=== PATIENT | female | born 1940 | race Caucasian/White ===

== ENCOUNTER 2019-07-29 16:59 | Emergency (ER) | payer OTHER, BC ==
[2019-07-29] MEDS ORDERED: HYDROCODONE/APAP 5/325 MG TAB ONE (17:18)
--- NOTE | 2019-07-29 17:42 | RAD REPORT ---
EXAM DESCRIPTION: CT - CTHCSPWOC - 07/29/2019 5:32 pm CLINICAL HISTORY: Fall, head and neck injury COMPARISON: CT head and cervical May 2015 TECHNIQUE: Axial 5 mm thick images of the head were obtained. Axial 2 mm thick images of the cervic al spine were obtained with sagittal and coronal reconstruction images generated and reviewed. All CT scans are performed using dose optimization technique as appropriate and may include automated exposure control or mA/KV adjustment according to patient size. FINDINGS: No intracranial hemorrhage, mass, edema or acute intracranial finding. No suspicion for acute infarct ion. No acute cortical based infarction. Prominent atrophy and chronic ischemic changes are present. Ventricles are in proportion to volume loss. Dense arterial tree calcifications are present. Mastoid air cells and paranasal sinuses are clear. No globe or orbit abnormality seen. Cervical body height and alignment are normal. C4-5 and C5-6 disc space narrowing present with endpla te spurring. Bony foraminal encroachment is present both of these levels. No fracture or acute bony a bnormality. No paraspinal mass or hematoma. IMPRESSION: Atrophy and chronic ischemic changes are present but no acute intracranial finding. No s ignificant change from comparison. Cervical spine degenerative change without fracture or acute finding.
--- NOTE | 2019-07-29 19:27 | EDPHYS ---
Physician Documentation [facility] Name: Yolande Hurtado Age: 79 yrs Sex: Female : 1940 Arrival Date: 07/29/2019 Time: 17:01 Bed 5 Private MD: ED Physician Jamel Montiel HPI: 07/29 17:16 This 79 yrs old Female presents to ER via EMS with complaints of Fall Injury. pm1 17:16 Details of fall: The patient fell from an upright position, while standing. Onset: The pm1 symptoms/episode began/occurred just prior to arrival. Associated injuries: The patient sustained injury to the head, contusion, right ankle. Severity of symptoms: in the emergency department the symptoms. The patient has not experienced similar symptoms in the past. The patient has not recently seen a physician. Patient was standing outside and tripped from behind by two dogs. Fell backwards and twisted her right ankle, hit the back of head and scrapped her left ankle. No LOC, vomiting, or neck pain. Historical: - Allergies: 17:05 Codeine; tw2 - Home Meds: 17:05 atorvastatin Oral once daily [Active]; sulfamethoxazole-trimethoprim Oral twice a day tw2 [Active]; omeprazole 40 mg Oral cpDR once daily [Active]; losartan-hydrochlorothiazide Oral [Active]; levothyroxine 75 mcg tab 1 tab once daily [Active]; fluoxetine 40 mg Oral cap once daily [Active]; - PMHx: 17:05 Anxiety; Hypertension; Hypothyroidism; reflux; tw2 - PSHx: 17:05 Cholecystectomy; partial hysterectomy; back sx; tw2 - Immunization history:: Adult Immunizations. - Social history:: Smoking status: . - Ebola Screening: : Patient denies travel to an Ebola-affected area in the 21 days before illness onset. ROS: 17:16 Constitutional: Negative for fever, chills, and weight loss, Eyes: Negative for injury, pm1 pain, redness, and discharge, ENT: Negative for injury, pain, and discharge, Neck: Negative for injury, pain, and swelling, Cardiovascular: Negative for chest pain, palpitations, and edema, Respiratory: Negative for shortness of breath, cough, wheezing, and pleuritic chest pain, Abdomen/GI: Negative for abdominal pain, nausea, vomiting, diarrhea, and constipation, Back: Negative for injury and pain. 17:16 MS/extremity: Positive for pain, swelling, of the right ankle, Negative for decreased range of motion, deformity. 17:16 Skin: Positive for abrasion(s), of the anterior aspect of left ankle. 17:16 Neuro: Positive for headache, of the forehead, Negative for dizziness, numbness, pm1 tingling, weakness. Exam: 17:16 Constitutional: This is a well developed, well nourished patient who is awake, alert, pm1 and in no acute distress. Head/Face: Normocephalic, atraumatic. Eyes: Pupils equal round and reactive to light, extra-ocular motions intact. Lids and lashes normal. Conjunctiva and sclera are non-icteric and not injected. Cornea within normal limits. Periorbital areas with no swelling, redness, or edema. ENT: Nares patent. No nasal discharge, no septal abnormalities noted. Tympanic membranes are normal and external auditory canals are clear. Oropharynx with no redness, swelling, or masses, exudates, or evidence of obstruction, uvula midline. Mucous membranes moist. Neck: Trachea midline, no thyromegaly or masses palpated, and no cervical lymphadenopathy. Supple, full range of motion without nuchal rigidity, or vertebral point tenderness. No Meningismus. Chest/axilla: Normal chest wall appearance and motion. Nontender with no deformity. No lesions are appreciated. Cardiovascular: Regular rate and rhythm with a normal S1 and S2. No gallops, murmurs, or rubs. Normal PMI, no JVD. No pulse deficits. Respiratory: Lungs have equal breath sounds bilaterally, clear to auscultation and percussion. No rales, rhonchi or wheezes noted. No increased work of breathing, no retractions or nasal flaring. Abdomen/GI: Soft, non-tender, with normal bowel sounds. No distension or tympany. No guarding or rebound. No evidence of tenderness throughout. Back: No spinal tenderness. No costovertebral tenderness. Full range of motion. 17:16 Musculoskeletal/extremity: Extremities: grossly normal except: noted in the right ankle: swelling, tenderness, There is no evidence of decreased ROM, deformity. 17:16 Skin: Appearance: normal except for affected area, injury, abrasion(s), of the anterior aspect of left ankle. 17:16 Neuro: Orientation: is normal, Motor: is normal. Vital Signs: 17:05 BP 137 / 91; Pulse 77; Resp 17; Temp 97.9(TE); Pulse Ox 98% on R/A; Weight 83.91 kg (R);tw2 18:00 BP 131 / 62; Pulse 69; Resp 17; Pulse Ox 97% on R/A; tw2 18:55 BP 146 / 82; Pulse 78; Resp 17; Pulse Ox 97% on R/A; tw2 19:35 BP 147 / 77; Pulse 81; Resp 18 S; Temp 97.7(O); Pulse Ox 97% on R/A; cc3 [place] Coma Score: 17:03 Eye Response: spontaneous(4). Verbal Response: oriented(5). Motor Response: obeys ca1 commands(6). Total: 15. Trauma Score (Adult): 17:03 Eye Response: spontaneous(1); Verbal Response: oriented(1); Motor Response: obeys ca1 commands(2); Systolic BP: > 89 mm Hg(4); Respiratory Rate: 10 to 29 per min(4); Komal Score: 15; Trauma Score: 12 MDM: 17:09 Patient medically screened. pm1 19:14 Data reviewed: vital signs. Data interpreted: Pulse oximetry: on room air is 97 %. pm1 Interpretation: normal. Counseling: I had a detailed discussion with the patient and/or guardian regarding: the historical points, exam findings, and any diagnostic results supporting the discharge/admit diagnosis, radiology results, the need for outpatient follow up, for definitive care, a orthopedic surgeon, to return to the emergency department if symptoms worsen or persist or if there are any questions or concerns that arise at home. 19:14 ED course: Patient has a walker at home. pm1 07/29 17:16 Order name: CT Head C Spine; Complete Time: 17:56 pm1 07/29 17:16 Order name: Ankle Right 3 View XRAY; Complete Time: 01:42 pm1 07/29 17:16 Order name: Foot Right 3 View XRAY; Complete Time: 01:42 pm1 07/29 19:05 Order name: Walking boot; Complete Time: 19:36 pm1 Administered Medications: 17:18 Drug: [place] 5 mg-325 mg 1 tabs Route: PO; tw2 19:15 Follow up: Response: No adverse reaction; Pain is decreased; RASS: Alert and Calm (0) cc3 Disposition: 07/30 08:07 Co-signature as Attending Physician, Jamel Montiel MD. rn Disposition: 07/29/19 19:26 Discharged to Home. Impression: Avulsion fracture (chip fracture) of talus, Superficial injury of head, Abrasion, left ankle. - Condition is Stable. - Discharge Instructions: Head Injury, Adult. - Prescriptions for Ultracet 37.5- 325 mg Oral Tablet - take 1 tablet by ORAL route every 6 hours As needed - for up to 5 days; do not exceed 8 tablets per day.; 20 tablet. - Medication Reconciliation Form, Thank You Letter, Antibiotic Education, Prescription Opioid Use form. - Follow up: Emergency Department; When: As needed; Reason: Worsening of condition. Follow up: Private Physician; When: 2 - 3 days; Reason: Recheck today's complaints, Continuance of care, Re-evaluation by your physician. - Problem is new. - Symptoms have improved. Signatures: Dispatcher [employer] EDMS Jamel Montiel MD MD rn Marinas, Patrick, SALES CLERK FOOD SALES CLERK FOOD pm1 Janny Colon RN RN tw2 Patsy Atkinosn cc3 Corrections: (The following items were deleted from the chart) 07/29 19:26 19:26 07/29/2019 19:26 Discharged to Home. Impression: Avulsion fracture (chip pm1 fracture) of talus. Condition is Stable. Forms are Medication Reconciliation Form, Thank You Letter, Antibiotic Education, Prescription Opioid Use. Follow up: Emergency Department; When: As needed; Reason: Worsening of condition. Follow up: Private Physician; When: 2 - 3 days; Reason: Recheck today's complaints, Continuance of care, Re-evaluation by your physician. Problem is new. Symptoms have improved. pm1 19:53 19:26 07/29/2019 19:26 Discharged to Home. Impression: Avulsion fracture (chip cc3 fracture) of talus; Superficial injury of head; Abrasion, left ankle. Condition is Stable. Forms are Medication Reconciliation Form, Thank You Letter, Antibiotic Education, Prescription Opioid Use. Follow up: Emergency Department; When: As needed; Reason: Worsening of condition. Follow up: Private Physician; When: 2 - 3 days; Reason: Recheck today's complaints, Continuance of care, Re-evaluation by your physician. Problem is new. Symptoms have improved. pm1
--- NOTE | 2019-07-29 19:27 | ER ---
Nurse's Notes [facility] Name: Yolande Hurtado Age: 79 yrs Sex: Female : 1940 Arrival Date: 07/29/2019 Time: 17:01 Bed 5 Private MD: Diagnosis: Avulsion fracture (chip fracture) of talus;Superficial injury of head;Abrasion, left ankle Presentation: 07/29 17:01 Presenting complaint: EMS states: pt was outside noticed her neighbors dog out, but tw2 didn't see the other dog and it came up behind her and pushed her down, she fell and hit the back of her head on the concrete, no loc, abrasion noted, no laceration, pt is also c/o b/l ankle pain, more pain and swelling noted to the RIGHT ankle. vs stable, pt is not on blood thinners. Transition of care: patient was not received from another setting of care. Onset of symptoms was July 29, 2019. Risk Assessment: Do you want to hurt yourself or someone else? Patient reports no desire to harm self or others. Initial Sepsis Screen: Does the patient meet any 2 criteria? No. Patient's initial sepsis screen is negative. Does the patient have a suspected source of infection? No. Patient's initial sepsis screen is negative. Care prior to arrival: None. 17:01 Method Of Arrival: EMS: [facility] tw2 17:01 Acuity: SONJA 4 tw2 Triage Assessment: 17:03 General: Appears in no apparent distress. Behavior is cooperative, appropriate for age. tw2 Pain: Complains of pain in right and left ankle, and back of head. Historical: - Allergies: 17:05 Codeine; tw2 - Home Meds: 17:05 atorvastatin Oral once daily [Active]; sulfamethoxazole-trimethoprim Oral twice a day tw2 [Active]; omeprazole 40 mg Oral cpDR once daily [Active]; losartan-hydrochlorothiazide Oral [Active]; levothyroxine 75 mcg tab 1 tab once daily [Active]; fluoxetine 40 mg Oral cap once daily [Active]; - PMHx: 17:05 Anxiety; Hypertension; Hypothyroidism; reflux; tw2 - PSHx: 17:05 Cholecystectomy; partial hysterectomy; back sx; tw2 - Immunization history:: Adult Immunizations. - Social history:: Smoking status: . - Ebola Screening: : Patient denies travel to an Ebola-affected area in the 21 days before illness onset. Screenin:03 Abuse screen: Denies threats or abuse. Denies injuries from another. Nutritional ca1 screening: No deficits noted. Tuberculosis screening: No symptoms or risk factors identified. Fall Risk Fall in past 12 months (25 points). Primary Survey: 17:03 NO uncontrolled hemorrhage observed. A: The patient is alert. Airway: patent. ca1 Breathing/Chest: Respiratory pattern: regular, Respiratory effort: spontaneous, unlabored, Chest inspection: symmetrical rise and fall of the chest. Circulation: Skin color: pink, Skin temperature: warm, dry. Disability Alert. Exposure/Environment: All clothing and personal items were removed. Forensic evidence collection is not deemed to be indicated at this time. Items placed in patient belonging bag. There is no evidence of uncontrolled external bleeding. No obvious injuries are noted at this time. A warming method has been applied: A warm blanket has been provided to the patient. Assessment: 17:59 Reassessment: Patient appears in no apparent distress at this time. Patient and/or tw2 family updated on plan of care and expected duration. Pain level reassessed. Patient is alert, oriented x 3, equal unlabored respirations, skin warm/dry/pink. 18:55 Reassessment: Patient appears in no apparent distress at this time. Patient and/or tw2 family updated on plan of care and expected duration. Pain level reassessed. Patient is alert, oriented x 3, equal unlabored respirations, skin warm/dry/pink. 19:15 Reassessment: Patient appears in no apparent distress at this time. Patient and/or cc3 family updated on plan of care and expected duration. Pain level reassessed. Patient is alert, oriented x 3, equal unlabored respirations, skin warm/dry/pink. Received this female patient from morning shift NANCI Hernandez as a case of fall with right ankle injury. No IV cannula in situ. General: Appears in no apparent distress. comfortable, Behavior is calm, cooperative, appropriate for age. Pain: Denies pain. Neuro: Level of Consciousness is awake, alert, obeys commands, Oriented to person, place, time, situation, Appropriate for age. Cardiovascular: Denies chest pain, Heart tones S1 S2 present Capillary refill < 3 seconds in bilateral fingers Patient's skin is warm and dry. Respiratory: Airway is patent Respiratory effort is even, unlabored, Breath sounds are clear bilaterally. GI: Abdomen is round non-distended, Bowel sounds present X 4 quads. Abd is soft and non tender X 4 quads. : No signs and/or symptoms were reported regarding the genitourinary system. EENT: No signs and/or symptoms were reported regarding the EENT system. Derm: Skin is intact, is healthy with good turgor, Skin is pink, warm \T\ dry. normal. Musculoskeletal: Circulation, motion, and sensation intact. Range of motion: limited in right ankle. 19:50 Reassessment: Patient appears in no apparent distress at this time. Patient and/or cc3 family updated on plan of care and expected duration. Pain level reassessed. Patient is alert, oriented x 3, equal unlabored respirations, skin warm/dry/pink. SYSTEM MANAGER Toan discharged the patient home with prescription given. No IV cannula in situ. Patient left ER vitally stable by wheelchair escorted by civil engineering technicianserina Robertson and the patient's . No valuables left in the patient's room. Patient denies pain at this time. Patient states feeling better. Patient states symptoms have improved. Vital Signs: 17:05 BP 137 / 91; Pulse 77; Resp 17; Temp 97.9(TE); Pulse Ox 98% on R/A; Weight 83.91 kg (R);tw2 18:00 BP 131 / 62; Pulse 69; Resp 17; Pulse Ox 97% on R/A; tw2 18:55 BP 146 / 82; Pulse 78; Resp 17; Pulse Ox 97% on R/A; tw2 19:35 BP 147 / 77; Pulse 81; Resp 18 S; Temp 97.7(O); Pulse Ox 97% on R/A; cc3 Komal Coma Score: 17:03 Eye Response: spontaneous(4). Verbal Response: oriented(5). Motor Response: obeys ca1 commands(6). Total: 15. Trauma Score (Adult): 17:03 Eye Response: spontaneous(1); Verbal Response: oriented(1); Motor Response: obeys ca1 commands(2); Systolic BP: > 89 mm Hg(4); Respiratory Rate: 10 to 29 per min(4); Komal Score: 15; Trauma Score: 12 ED Course: 17:01 Patient arrived in ED. tw2 17:02 Doyle Joya NP is PHCP. pm1 17:02 Jamel Montiel MD is Attending Physician. pm1 17:03 Mary Mccray, NANCI is Primary Nurse. ca1 17:03 Triage completed. tw2 17:03 Arm band placed on. tw2 17:03 Patient has correct armband on for positive identification. Bed in low position. Call ca1 light in reach. Side rails up X2. Pulse ox on. NIBP on. Warm blanket given. Ice pack to injury. 17:03 Patient maintains SpO2 saturation greater than 95% on room air. ca1 17:33 CT Head C Spine In Process Unspecified. EDMS 18:34 Ankle Right 3 View XRAY In Process Unspecified. EDMS 18:34 Foot Right 3 View XRAY In Process Unspecified. EDMS 19:05 Report given to NANCI Yi. tw2 19:42 No provider procedures requiring assistance completed. Patient did not have IV access cc3 during this emergency room visit. Administered Medications: 17:18 Drug: [place] 5 mg-325 mg 1 tabs Route: PO; tw2 19:15 Follow up: Response: No adverse reaction; Pain is decreased; RASS: Alert and Calm (0) cc3 Outcome: 19:26 Discharge ordered by . pm1 19:42 Discharged to home via wheelchair, with family. cc3 19:42 Condition: stable 19:42 Discharge instructions given to patient, family, Instructed on discharge instructions, follow up and referral plans. medication usage, Demonstrated understanding of instructions, follow-up care, medications, Prescriptions given X 1. 19:53 Patient left the ED. cc3 Signatures: Dispatcher [employer] EDMS Doyle Joya, KRISTA SYSTEM MANAGER pm1 Janny Colon RN RN tw2 Patsy Atkinson cc3 Mary Mccray RN RN ca1
--- NOTE | 2019-07-29 19:51 | RAD REPORT ---
EXAM DESCRIPTION: RAD - Ankle Right 3 View - 07/29/2019 6:35 pm CLINICAL HISTORY: Fall, foot and ankle injury COMPARISON: None. FINDINGS: No fracture, dislocation or periosteal reaction. No joint effusion seen. No joint space na rrowing. Mild degenerative changes present at the ankle joint. Minimal soft tissue swelling. IMPRESSION: Minimal right ankle degenerative change with no acute finding.
--- NOTE | 2019-07-29 19:51 | RAD REPORT ---
EXAM DESCRIPTION: RAD - Foot Right 3 View - 07/29/2019 6:31 pm CLINICAL HISTORY: Fall, foot and ankle injury COMPARISON: None. FINDINGS: No fracture, dislocation or periosteal reaction. No acute or destructive bone process. Mil d IP joint degenerative changes are present. Mild degenerative change the first MTP joint. Minimal Ac hilles tendon calcifications present at the insertion. No air or foreign body in the soft tissues. IMPRESSION: Negative right foot examination for acute finding.
[2019-07-29 20:00] VITALS: O2SAT 97
[2019-07-29 20:03] VITALS: BP 147/77; TEMP 97.7
== END 2019-07-29 19:53 | disposition home or self-care (01) ==
LOC: ER 16:59
DX: S92.152A Displaced avulsion fracture (chip fracture) of left talus, initial encounter for closed fracture (principal); S90.512A Abrasion, left ankle, initial encounter; S00.90XA Unspecified superficial injury of unspecified part of head, initial encounter; Y93.89 Activity, other specified; Y92.9 Unspecified place or not applicable; Z88.6 Allergy status to analgesic agent; I10 Essential (primary) hypertension; E03.9 Hypothyroidism, unspecified; K21.9 Gastro-esophageal reflux disease without esophagitis
CPT/HCPCS: 70450; 72125; 99284

== ENCOUNTER 2019-11-30 16:59 | Emergency (ER) | payer OTHER, BC ==
[2019-11-30 17:44] LABS: Absolute Lymphocytes (CBC) 1.8 K/uL (0.7-4.9); Basophils % 0.7 % (0-1.3); Hematocrit 38.5 % (36.0-45.0); Lymphocytes % 24.8 % (15.3-44.8); MPV 8.3 fL (7.6-11.3); RBC Red Blood Cell Count 4.07 M/uL (3.86-4.86)
--- NOTE | 2019-11-30 17:49 | RAD REPORT ---
EXAM DESCRIPTION: CT - Ct Stroke Brain Wo Cont - 11/30/2019 5:31 pm CLINICAL HISTORY: ams, stroke protocol COMPARISON: Head C Spine Mpr Wo Con dated 07/29/2019 TECHNIQUE: Axial 5 millimeter thick images of the head were obtained without IV contrast. All CT scans are performed using dose optimization technique as appropriate and may include automated exposure control or mA/KV adjustment according to patient size. FINDINGS: No intracranial hemorrhage, mass, or cerebral edema. No acute infarction identifiable. No cortical edema or sulcal effacement. Atrophy and chronic ischemic changes are similar to comparison. Mclean matter-white matter differentiation is preserved.Ventricles are in proportion to the volume loss . Visualized portions of the mastoid air cells, paranasal sinuses, and orbits are unremarkable. IMPRESSION: No hemorrhage or acute intracranial abnormality. Moderate atrophy and mild to moderate chronic ischemic change matching comparison. Chronic ischemic changes can mask nonhemorrhagic acute infarction. MR brain followup can be obtained if there is ongoing concern for acute ischemia.
[2019-11-30 17:51] LABS: Protime INR 0.94
[2019-11-30] MEDS ORDERED: FOLIC ACID 5 MG/ML VIAL ONE (17:54)
[2019-11-30] MEDS ORDERED: NA CHLORIDE 0.9% 1,000 ML ONE (17:54)
--- NOTE | 2019-11-30 17:59 | ER ---
Nurse's Notes [facility] Name: Yolande Hurtado Age: 79 yrs Sex: Female : 1940 Arrival Date: 11/30/2019 Time: 17:01 Bed 3 Private MD: Diagnosis: Weakness;Altered mental status, unspecified;Transient cerebral ischemic attack, unspecified-resolved Presentation: 11/29 17:10 Chief complaint: Patient states: Moments of confusion lasting between 2-3 moments where ss pt states she suddenly couldn't remember her TV channels and felt very confused. This happened twice within the past 3 hours with nausea and vomiting x 1. Denies pain. Coronavirus screen: The patient has NOT traveled to a country currently being monitored by the [facility] within the last 14 days. Proceed with normal triage procedures. Ebola Screen: Patient denies exposure to infectious person. Patient denies travel to an Ebola-affected area in the 21 days before illness onset. Initial Sepsis Screen: Does the patient meet any 2 criteria? No. Patient's initial sepsis screen is negative. Does the patient have a suspected source of infection? No. Patient's initial sepsis screen is negative. Risk Assessment: Do you want to hurt yourself or someone else? Patient reports no desire to harm self or others. 17:10 Method Of Arrival: Ambulatory ss 17:10 Acuity: SONJA 2 ss 17:30 Onset of symptoms was November 30, 2019 at 14:00. sv Historical: - Allergies: 17:14 No Known Allergies; ss - Home Meds: 18:10 losartan-hydrochlorothiazide 100-25 mg oral tab once daily [Active]; levothyroxine 75 sv mcg tab 1 tab once daily [Active]; fluoxetine 20 mg oral tab once daily [Active]; atorvastatin 20 mg oral tab once daily [Active]; cetirizine 10 mg oral tab 1 tab once daily [Active]; - PMHx: 17:14 Anxiety; Hypertension; Hypothyroidism; reflux; ss - PSHx: 17:14 Cholecystectomy; partial hysterectomy; back sx; ss - Immunization history:: Adult Immunizations unknown. - Social history:: Smoking status: Patient denies any tobacco usage or history of. Screenin:25 Abuse screen: Denies threats or abuse. Denies injuries from another. Nutritional ss screening: No deficits noted. Tuberculosis screening: Never had TB. 17:54 Fall Risk No fall in past 12 months (0 pts). No secondary diagnosis (0 pts). IV access sv (20 points). Ambulatory Aid- None/Bed Rest/Nurse Assist (0 pts). Gait- Normal/Bed Rest/Wheelchair (0 pts) Mental Status- Oriented to own ability (0 pts). Total Rosen Fall Scale indicates No Risk (0-24 pts). 18:05 Patient has been NPO before screening. The patient is alert, able to follow commands. sv The patient does not exhibit slurred or garbled speech The patient is not exhibiting difficulty speaking. The patient does not exhibit difficulty understanding words. The patient is able to swallow own secretions with no drooling or need for suction. Patient tolerated one teaspoon of water. No drooling, immediate coughing, gurgling, or clearing of the throat was noted. The patient tolerated 90mL of water. No drooling, immediate coughing, gurgling, or clearing of the throat was noted. The patient passed the bedside swallow screening. Oral medications may be given as ordered. Contact Physician for further diet orders. Provider notified of bedside swallow screening results: Blake Burton MD. Assessment: 17:15 Reassessment: Pt reports she began feeling bad around 1400 today. ss 17:21 Reassessment: Pt taken to CT by Yadira CHRISTINE. sv 17:30 General: Appears in no apparent distress. Behavior is calm, cooperative. Pain: Denies hb pain. Neuro: Level of Consciousness is awake, alert, obeys commands, Oriented to person, place, situation. Cardiovascular: Heart tones S1 S2 present Capillary refill < 3 seconds Patient's skin is warm and dry. Respiratory: Airway is patent Respiratory effort is even, unlabored, Respiratory pattern is regular, symmetrical, Breath sounds are clear bilaterally. GI: Abdomen is non-distended. : No signs and/or symptoms were reported regarding the genitourinary system. EENT: No signs and/or symptoms were reported regarding the EENT system. 17:30 Derm: Skin is pink, warm \T\ dry. Musculoskeletal: No signs and/or symptoms reported hb regarding the musculoskeletal system. 18:45 Reassessment: Patient appears in no apparent distress at this time. Patient and/or hb family updated on plan of care and expected duration. Pain level reassessed. Patient is alert, oriented x 3, equal unlabored respirations, skin warm/dry/pink. 19:00 Reassessment: Attempted to call report to [facility], nurse unavailable at this sv time. 19:30 Reassessment: Attempted to call report, spoke to Marisa from transfer center, unable to ea connect at this time, will attempt in 15 minutes. 19:52 Reassessment: Patient and/or family updated on plan of care and expected duration. Pain ea level reassessed. Patient is alert, oriented x 3, equal unlabored respirations, skin warm/dry/pink. General: Appears in no apparent distress. Behavior is calm, cooperative. Pain: Denies pain. Neuro: Level of Consciousness is awake, alert, obeys commands, Oriented to person, place, situation. Cardiovascular: Patient's skin is warm and dry. Respiratory: Airway is patent Respiratory effort is even, unlabored, Respiratory pattern is regular, symmetrical. Derm: Skin is pink, warm \T\ dry. 20:17 Reassessment: Patient and/or family updated on plan of care and expected duration. Pain ea level reassessed. Patient is alert, oriented x 3, equal unlabored respirations, skin warm/dry/pink. EMS at facility for transfer, pt left ED via stretcher per EMS. Pt tolerating well. 20:29 Reassessment: Report called to Justine CHRISTINE at [facility]. Vital Signs: 17:53 BP 153 / 98; Pulse 78; Resp 14; Temp 98; Pulse Ox 99% ; Weight 83 kg; sv 18:30 BP 153 / 88; Pulse 69; Resp 20; Pulse Ox 100% on R/A; Pain 0/10; hb 19:53 BP 172 / 98; Pulse 98; Resp 18; Pulse Ox 97% on R/A; ea Komal Coma Score: 17:52 Eye Response: spontaneous(4). Verbal Response: oriented(5). Motor Response: obeys jolly commands(6). Total: 15. NIH Stroke Scale Scores: 17:30 NIHSS Score: 1 hb 17:43 NIHSS Score: 1 jolly 20:02 NIHSS Score: 0 jolly ED Course: 17:01 Patient arrived in ED. mr 17:13 Triage completed. ss 17:14 Arm band placed on left wrist. ss 17:20 Blake Burton MD is Attending Physician. jolly 17:25 Patient has correct armband on for positive identification. Bed in low position. Call ss light in reach. 17:30 Patient moved back from CT. sv 17:30 car usher on. Pulse ox on. NIBP on. Door closed. Warm blanket given. Head of bed sv elevated. 17:30 Inserted saline lock: 20 gauge in right antecubital area, using aseptic technique. sv Blood collected. Flushed right antecubital with 5 ml normal saline. 17:31 CT Stroke Brain w/o Contrast In Process Unspecified. EDMS 17:48 Melyssa Lockett, RN is Primary Nurse. sv 17:[address] Burton with [place] from the [facility] [place]. eb 17:[address] Gasca the Neurologist contour band saw operator vertical for [facility] with Dr. Burton For patient transfer consultation. 18:[address] Maya the Hospitalist contour band saw operator vertical for [facility] with Dr. Burton for patient transfer consultation. 18:05 XRAY Chest (1 view) In Process Unspecified. EDMS 18:29 administrative approval given by Christi Magana/ patient has been accepted to [facility] 24 tower rm 2415/ Dr. Hernando Maya has accepted the patient in transfer/ report to be called to [phone]. 19:19 Report given to Linn CHRISTINE, Christen RN. sv 19:30 Primary Nurse role handed off by Melyssa Lockett, NANCI sv 19:32 called EMS spoke to [place] Nurse truck is on their way to take pt to [address] 19:48 Linn Macias, RN is Primary Nurse. ea 19:53 No provider procedures requiring assistance completed. Patient transferred, IV remains ea in place. Administered Medications: 18:08 Drug: foLIC Acid 1 mg Route: IVPB; Site: left antecubital; sv 18:09 Follow up: Response: No adverse reaction; IV Status: Completed infusion sv 18:08 Drug: Zofran (Ondansetron) 4 mg Route: IVP; Site: left antecubital; sv 18:30 Follow up: Response: No adverse reaction sv 18:08 Drug: Pepcid 20 mg Route: IVP; Site: left antecubital; sv 18:30 Follow up: Response: No adverse reaction sv 18:08 Drug: Aspirin Chewable Tablet 324 mg Route: PO; sv 18:30 Follow up: Response: No adverse reaction sv 18:09 Drug: NS 0.9% 1000 ml Route: IV; Rate: 1 bolus; Site: left antecubital; sv 19:54 Follow up: Response: No adverse reaction; IV Status: Completed infusion; IV Intake: ea 1000ml 19:48 Drug: Rocephin 1 grams Route: IV; Rate: per protocol; Site: left antecubital; ea 20:00 Follow up: Response: No adverse reaction; IV Status: Completed infusion ea Intake: 19:54 IV: 1000ml; Total: 1000ml. ea Outcome: 17:58 ER care complete, transfer ordered by . [facility] 19:30 Instructed on the need for transfer. ea 20:18 Transferred by [facility] to [facility], Transfer form completed. ea 20:18 Condition: stable 20:19 Patient left the ED. ea NIH Stroke Scale - NIH Stroke Score Date: 11/30/2019 Time: 17:30 Total Score = 1 1a. Level of Consciousness (LOC) - 0(Alert) 1b. Level of Consciousness (LOC) (Year \T\ Age) - 1(One) 1c. LOC Commands (Open \T\ Closes Eyes/Sales Consultant Residential Manager) - 0(Both) 2. Best Gaze (Lateral Gaze Paresis) - 0(Normal) 3. Visual Field Loss - 0(No visual loss) 4. Facial Palsy - 0(Normal) 5a. Left Arm: Motor (10-second hold) - 0(No drift) 5b. Right Arm: Motor (10-second hold) - 0(No drift) 6a. Left Leg: Motor (5-second hold - always test supine) - 0(No drift) 6b. Right Leg: Motor (5-second hold - always test supine) - 0(No drift) 7. Limb Ataxia (finger/nose \T\ heel/sage - test with eyes open) - 0(Absent) 8. Sensory Loss (pinprick arms/legs/face) - 0(Normal) 9. Best Language: Aphasia (description/naming/reading) - 0(No aphasia) 10. Dysarthria (speech clarity - read or repeat words) - 0(Normal) 11. Extinction and Inattention (visual/tactile/auditory/spatial/personal) - 0(No abnormality) Initials: NIH Stroke Scale - NIH Stroke Score Date: 11/30/2019 Time: 17:43 Total Score = 1 1a. Level of Consciousness (LOC) - 0(Alert) 1b. Level of Consciousness (LOC) (Year \T\ Age) - 1(One) 1c. LOC Commands (Open \T\ Closes Eyes/Sales Consultant Residential Manager) - 0(Both) 2. Best Gaze (Lateral Gaze Paresis) - 0(Normal) 3. Visual Field Loss - 0(No visual loss) 4. Facial Palsy - 0(Normal) 5a. Left Arm: Motor (10-second hold) - 0(No drift) 5b. Right Arm: Motor (10-second hold) - 0(No drift) 6a. Left Leg: Motor (5-second hold - always test supine) - 0(No drift) 6b. Right Leg: Motor (5-second hold - always test supine) - 0(No drift) 7. Limb Ataxia (finger/nose \T\ heel/sage - test with eyes open) - 0(Absent) 8. Sensory Loss (pinprick arms/legs/face) - 0(Normal) 9. Best Language: Aphasia (description/naming/reading) - 0(No aphasia) 10. Dysarthria (speech clarity - read or repeat words) - 0(Normal) 11. Extinction and Inattention (visual/tactile/auditory/spatial/personal) - 0(No abnormality) Initials: [facility] NIH Stroke Scale - NIH Stroke Score Date: 11/30/2019 Time: 20:02 Total Score = 0 1a. Level of Consciousness (LOC) - 0(Alert) 1b. Level of Consciousness (LOC) (Year \T\ Age) - 0(Both) 1c. LOC Commands (Open \T\ Closes Eyes/Sales Consultant Residential Manager) - 0(Both) 2. Best Gaze (Lateral Gaze Paresis) - 0(Normal) 3. Visual Field Loss - 0(No visual loss) 4. Facial Palsy - 0(Normal) 5a. Left Arm: Motor (10-second hold) - 0(No drift) 5b. Right Arm: Motor (10-second hold) - 0(No drift) 6a. Left Leg: Motor (5-second hold - always test supine) - 0(No drift) 6b. Right Leg: Motor (5-second hold - always test supine) - 0(No drift) 7. Limb Ataxia (finger/nose \T\ heel/sage - test with eyes open) - 0(Absent) 8. Sensory Loss (pinprick arms/legs/face) - 0(Normal) 9. Best Language: Aphasia (description/naming/reading) - 0(No aphasia) 10. Dysarthria (speech clarity - read or repeat words) - 0(Normal) 11. Extinction and Inattention (visual/tactile/auditory/spatial/personal) - 0(No abnormality) Initials: jolly Signatures: Dispatcher [employer] EDMelyssa Saldaña RN RN sv Anderson, Corey, MD MD cha Rivera, Julianna mr Yadira Mancuso RN RN ss Baxter, Heather, RN RN Linn Macias RN RN ea [place], MyKena [facility] Phuong Cuevas Corrections: (The following items were deleted from the chart) 17:54 17:53 Pulse 78bpm; Resp 14bpm; Pulse Ox 99%; Temp 98F; sv sv 18:07 17:53 Pulse 78bpm; Resp 14bpm; Pulse Ox 99%; Temp 98F; 83 kg; sv sv
--- NOTE | 2019-11-30 17:59 | EDPHYS ---
Physician Documentation Formerly [facility] Name: Yolande Hurtado Age: 79 yrs Sex: Female : 1940 Arrival Date: 11/30/2019 Time: 17:01 Bed 3 Private MD: ED Physician Blake Burton HPI: 11/29 17:42 This 79 yrs old Female presents to ER via Ambulatory with complaints of jolly Vomiting, Confusion. 17:42 The patient presents to the emergency department with nausea, vomiting. jolly Historical: - Allergies: 17:14 No Known Allergies; ss - Home Meds: 18:10 losartan-hydrochlorothiazide 100-25 mg oral tab once daily [Active]; levothyroxine 75 sv mcg tab 1 tab once daily [Active]; fluoxetine 20 mg oral tab once daily [Active]; atorvastatin 20 mg oral tab once daily [Active]; cetirizine 10 mg oral tab 1 tab once daily [Active]; - PMHx: 17:14 Anxiety; Hypertension; Hypothyroidism; reflux; ss - PSHx: 17:14 Cholecystectomy; partial hysterectomy; back sx; ss - Immunization history:: Adult Immunizations unknown. - Social history:: Smoking status: Patient denies any tobacco usage or history of. ROS: 17:43 Constitutional: Negative for fever, chills, and weight loss, Eyes: Negative for injury, jolly pain, redness, and discharge, ENT: Negative for injury, pain, and discharge, Neck: Negative for injury, pain, and swelling, Cardiovascular: Negative for chest pain, palpitations, and edema, Respiratory: Negative for shortness of breath, cough, wheezing, and pleuritic chest pain, Abdomen/GI: Negative for abdominal pain, nausea, vomiting, diarrhea, and constipation, Back: Negative for injury and pain, : Negative for injury, bleeding, discharge, and swelling, MS/Extremity: Negative for injury and deformity, Skin: Negative for injury, rash, and discoloration, Psych: Negative for depression, anxiety, suicide ideation, homicidal ideation, and hallucinations, Allergy/Immunology: Negative for hives, rash, and allergies, Endocrine: Negative for neck swelling, polydipsia, polyuria, polyphagia, and marked weight changes, Hematologic/Lymphatic: Negative for swollen nodes, abnormal bleeding, and unusual bruising. 17:43 Neuro: Positive for altered mental status, speech changes, weakness. Exam: 17:43 Constitutional: This is a well developed, well nourished patient who is awake, alert, jolly and in no acute distress. Head/Face: Normocephalic, atraumatic. Eyes: Pupils equal round and reactive to light, extra-ocular motions intact. Lids and lashes normal. Conjunctiva and sclera are non-icteric and not injected. Cornea within normal limits. Periorbital areas with no swelling, redness, or edema. ENT: Nares patent. No nasal discharge, no septal abnormalities noted. Tympanic membranes are normal and external auditory canals are clear. Oropharynx with no redness, swelling, or masses, exudates, or evidence of obstruction, uvula midline. Mucous membranes moist. Neck: Trachea midline, no thyromegaly or masses palpated, and no cervical lymphadenopathy. Supple, full range of motion without nuchal rigidity, or vertebral point tenderness. No Meningismus. Chest/axilla: Normal chest wall appearance and motion. Nontender with no deformity. No lesions are appreciated. Cardiovascular: Regular rate and rhythm with a normal S1 and S2. No gallops, murmurs, or rubs. Normal PMI, no JVD. No pulse deficits. Respiratory: Lungs have equal breath sounds bilaterally, clear to auscultation and percussion. No rales, rhonchi or wheezes noted. No increased work of breathing, no retractions or nasal flaring. Abdomen/GI: Soft, non-tender, with normal bowel sounds. No distension or tympany. No guarding or rebound. No evidence of tenderness throughout. Back: No spinal tenderness. No costovertebral tenderness. Full range of motion. Female : Normal external genitalia. Skin: Warm, dry with normal turgor. Normal color with no rashes, no lesions, and no evidence of cellulitis. MS/ Extremity: Pulses equal, no cyanosis. Neurovascular intact. Full, normal range of motion. Neuro: Awake and alert, GCS 15, oriented to person, place, time, and situation. Cranial nerves II-XII grossly intact. Motor strength 5/5 in all extremities. Sensory grossly intact. Cerebellar exam normal. Normal gait. Psych: Awake, alert, with orientation to person, place and time. Behavior, mood, and affect are within normal limits. 17:43 Neuro: Orientation: is normal, appropriate for stated age, no acute changes, Mentation: is normal, appropriate for stated age, Memory: is normal, Cranial nerves: is grossly normal based on the patient's age, no acute changes, Cerebellar function: is grossly normal based on the patient's age, no acute changes, Motor: is grossly normal based on the patient's age, no acute changes, moves all fours, strength is 5/5 in all extremities, Sensation: Gait: not tested. Deep tendon reflexes are 2+ (normal) in the bilateral brachioradialis, bicep, tricep and patellar and Achilles tendons, seizure activity, is not displayed by the patient. Vital Signs: 17:53 BP 153 / 98; Pulse 78; Resp 14; Temp 98; Pulse Ox 99% ; Weight 83 kg; sv 18:30 BP 153 / 88; Pulse 69; Resp 20; Pulse Ox 100% on R/A; Pain 0/10; hb 19:53 BP 172 / 98; Pulse 98; Resp 18; Pulse Ox 97% on R/A; ea NIH Stroke Scale Scores: 17:30 NIHSS Score: 1 hb 17:43 NIHSS Score: 1 jolly 20:02 NIHSS Score: 0 jolly Komal Coma Score: 17:52 Eye Response: spontaneous(4). Verbal Response: oriented(5). Motor Response: obeys [facility] commands(6). Total: 15. MDM: 17:20 Patient medically screened. jolly 17:47 Data reviewed: vital signs, nurses notes, lab test result(s), EKG, radiologic studies, [facility] CT scan, plain films. 17:53 ED course: no tpa, per dr barnes. jolly 11/29 17:22 Order name: Basic Metabolic Panel; Complete Time: 18:05 jolly 11/29 17:22 Order name: CBC with Diff; Complete Time: 17:47 jolly 11/29 17:22 Order name: LFT's; Complete Time: 18:05 jolly 11/29 17:22 Order name: Magnesium; Complete Time: 18:05 jolly 11/29 17:22 Order name: NT PRO-BNP; Complete Time: 18:05 jolly 11/29 17:22 Order name: PT-INR; Complete Time: 18:05 jolly 11/29 17:21 Order name: CT Stroke Brain w/o Contrast; Complete Time: 18:05 sv 11/29 17:22 Order name: Troponin (emerg Dept Use Only); Complete Time: 18:05 [facility] 11/29 17:22 Order name: XRAY Chest (1 view); Complete Time: 19:20 [facility] 11/29 17:22 Order name: Ptt, Activated; Complete Time: 18:05 [facility] 11/29 17:48 Order name: Glucose, Ancillary Testing; Complete Time: 18:05 EDMS 11/29 17:22 Order name: EKG; Complete Time: 17:24 [facility] 11/29 17:22 Order name: Cardiac monitoring; Complete Time: 17:52 [facility] 11/29 17:22 Order name: EKG - Nurse/Tech; Complete Time: 18:09 [facility] 11/29 17:22 Order name: IV Saline Lock; Complete Time: 17:52 [facility] 11/29 17:22 Order name: Labs collected and sent; Complete Time: 17:52 [facility] 11/29 17:22 Order name: O2 Per Protocol; Complete Time: 17:52 [facility] 11/29 17:22 Order name: O2 Sat Monitoring; Complete Time: 17:52 [facility] 11/29 17:22 Order name: Accucheck; Complete Time: 17:52 [facility] 11/29 17:22 Order name: NPO; Complete Time: 17:52 [facility] 11/29 17:22 Order name: Stroke Swallow Screen; Complete Time: 18:09 [facility] Administered Medications: 18:08 Drug: foLIC Acid 1 mg Route: IVPB; Site: left antecubital; sv 18:09 Follow up: Response: No adverse reaction; IV Status: Completed infusion sv 18:08 Drug: Zofran (Ondansetron) 4 mg Route: IVP; Site: left antecubital; sv 18:30 Follow up: Response: No adverse reaction sv 18:08 Drug: Pepcid 20 mg Route: IVP; Site: left antecubital; sv 18:30 Follow up: Response: No adverse reaction sv 18:08 Drug: Aspirin Chewable Tablet 324 mg Route: PO; sv 18:30 Follow up: Response: No adverse reaction sv 18:09 Drug: NS 0.9% 1000 ml Route: IV; Rate: 1 bolus; Site: left antecubital; sv 19:54 Follow up: Response: No adverse reaction; IV Status: Completed infusion; IV Intake: ea 1000ml 19:48 Drug: Rocephin 1 grams Route: IV; Rate: per protocol; Site: left antecubital; ea 20:00 Follow up: Response: No adverse reaction; IV Status: Completed infusion ea Disposition: 11/30/19 17:[address] [facility]. Diagnosis are Weakness, Altered mental status, unspecified, Transient cerebral ischemic attack, unspecified - resolved. - Reason for transfer: Higher level of care. - Accepting physician is [facility]. - Condition is Fair. - Problem is new. - Symptoms have improved. NIH Stroke Scale - NIH Stroke Score Date: 11/30/2019 Time: 17:30 Total Score = 1 1a. Level of Consciousness (LOC) - 0(Alert) 1b. Level of Consciousness (LOC) (Year \T\ Age) - 1(One) 1c. LOC Commands (Open \T\ Closes Eyes/[employer]) - 0(Both) 2. Best Gaze (Lateral Gaze Paresis) - 0(Normal) 3. Visual Field Loss - 0(No visual loss) 4. Facial Palsy - 0(Normal) 5a. Left Arm: Motor (10-second hold) - 0(No drift) 5b. Right Arm: Motor (10-second hold) - 0(No drift) 6a. Left Leg: Motor (5-second hold - always test supine) - 0(No drift) 6b. Right Leg: Motor (5-second hold - always test supine) - 0(No drift) 7. Limb Ataxia (finger/nose \T\ heel/sgae - test with eyes open) - 0(Absent) 8. Sensory Loss (pinprick arms/legs/face) - 0(Normal) 9. Best Language: Aphasia (description/naming/reading) - 0(No aphasia) 10. Dysarthria (speech clarity - read or repeat words) - 0(Normal) 11. Extinction and Inattention (visual/tactile/auditory/spatial/personal) - 0(No abnormality) Initials: NIH Stroke Scale - NIH Stroke Score Date: 11/30/2019 Time: 17:43 Total Score = 1 1a. Level of Consciousness (LOC) - 0(Alert) 1b. Level of Consciousness (LOC) (Year \T\ Age) - 1(One) 1c. LOC Commands (Open \T\ Closes Eyes/Director [employer] Development [employer]) - 0(Both) 2. Best Gaze (Lateral Gaze Paresis) - 0(Normal) 3. Visual Field Loss - 0(No visual loss) 4. Facial Palsy - 0(Normal) 5a. Left Arm: Motor (10-second hold) - 0(No drift) 5b. Right Arm: Motor (10-second hold) - 0(No drift) 6a. Left Leg: Motor (5-second hold - always test supine) - 0(No drift) 6b. Right Leg: Motor (5-second hold - always test supine) - 0(No drift) 7. Limb Ataxia (finger/nose \T\ heel/sage - test with eyes open) - 0(Absent) 8. Sensory Loss (pinprick arms/legs/face) - 0(Normal) 9. Best Language: Aphasia (description/naming/reading) - 0(No aphasia) 10. Dysarthria (speech clarity - read or repeat words) - 0(Normal) 11. Extinction and Inattention (visual/tactile/auditory/spatial/personal) - 0(No abnormality) Initials: [facility] NIH Stroke Scale - NIH Stroke Score Date: 11/30/2019 Time: 20:02 Total Score = 0 1a. Level of Consciousness (LOC) - 0(Alert) 1b. Level of Consciousness (LOC) (Year \T\ Age) - 0(Both) 1c. LOC Commands (Open \T\ Closes Eyes/Director [employer] Development [employer] Marketing) - 0(Both) 2. Best Gaze (Lateral Gaze Paresis) - 0(Normal) 3. Visual Field Loss - 0(No visual loss) 4. Facial Palsy - 0(Normal) 5a. Left Arm: Motor (10-second hold) - 0(No drift) 5b. Right Arm: Motor (10-second hold) - 0(No drift) 6a. Left Leg: Motor (5-second hold - always test supine) - 0(No drift) 6b. Right Leg: Motor (5-second hold - always test supine) - 0(No drift) 7. Limb Ataxia (finger/nose \T\ heel/sage - test with eyes open) - 0(Absent) 8. Sensory Loss (pinprick arms/legs/face) - 0(Normal) 9. Best Language: Aphasia (description/naming/reading) - 0(No aphasia) 10. Dysarthria (speech clarity - read or repeat words) - 0(Normal) 11. Extinction and Inattention (visual/tactile/auditory/spatial/personal) - 0(No abnormality) Initials: jolly Signatures: Dispatcher [employer] EDIN Melyssa Lockett RN RN Blake Giordano MD MD cha Smirch, Shelby RN RN Linn Juarez RN RN ea Corrections: (The following items were deleted from the chart) 17:31 17:24 CT-STROKE BRAIN W/O CONTRAST+CT.RAD.BRZ ordered. [facility] 20:19 17:58 11/30/2019 17:58 Transfer ordered to [facility]. Diagnosis is Weakness; Altered mental status, unspecified; Transient cerebral ischemic attack, unspecified - resolved. Reason for transfer: Higher level of care. Accepting physician is [facility]. Condition is Fair. Problem is new. Symptoms have improved. jolly
[2019-11-30 18:03] LABS: ALT/SGPT 29 U/L (12-78); AST/SGOT 20 U/L (15-37); Albumin 3.8 g/dL (3.4-5.0); Alkaline Phosphatase 132 U/L (45-117); BUN Blood Urea Nitrogen 11 mg/dL (7-18); Bicarbonate 28 mmol/L (21-32); Bilirubin Direct < 0.1 mg/dL (0-0.2); Bilirubin Total 0.4 mg/dL (0.2-1.0); Glucose Level 114 mg/dL (74-106); NT PRO-BNP 174 pg/mL (<450); Potassium 4.1 mmol/L (3.5-5.1); Protein, Total 7.1 g/dL (6.4-8.2); Sodium Level 137 mmol/L (136-145); Troponin (Emerg Dept Use Only) < 0.02 ng/mL (0.0-0.045)
[2019-11-30] MEDS ORDERED: ONDANSETRON 4 MG/2 ML VIAL ONE (18:03)
[2019-11-30] MEDS ORDERED: FAMOTIDINE 20 MG/2 ML VIAL IV ONE (18:03)
[2019-11-30] MEDS ORDERED: ASPIRIN 81 MG CHEWABLE TABLET ONE (18:03)
--- NOTE | 2019-11-30 18:24 | RAD REPORT ---
EXAM DESCRIPTION: RAD - Chest Single View - 11/30/2019 6:03 pm CLINICAL HISTORY: COUGH COMPARISON: Portable April 26, 2016 TECHNIQUE: AP portable chest image was obtained 11/30/2019 6:03 pm . FINDINGS: Lungs are clear. Interstitial pattern is similar to comparison. Heart and vasculature are normal. No measurable pleural effusion and no pneumothorax. No acute bony abnormality seen. No acute aortic findings suspected. IMPRESSION: No acute cardiopulmonary process.
[2019-11-30] MEDS ORDERED: CEFTRIAXONE/SWI 1gm 1 GM/10 ML SYR ONE (19:32)
[2019-11-30 20:38] VITALS: TEMP 98
[2019-11-30 20:42] VITALS: BP 172/98; O2SAT 97
--- NOTE | 2019-12-01 09:14 | EKG ---
Test Date: 2019-11-30 Test Time: 18:15:37 Visual Specialist: HB MEASUREMENT RESULTS: Intervals: Rate: 69 ID: [id number] QRSD: 74 QT: 442 QTc: 473 [place]: P: 8 ID: [id number] QRS: 3 T: 30 INTERPRETIVE STATEMENTS: Normal sinus rhythm Nonspecific T wave abnormality Prolonged QT Abnormal ECG Compared to ECG 04/26/2016 19:48:09 T-wave abnormality now present Prolonged QT interval now present Left ventricular hypertrophy no longer present ST (T wave) deviation no longer present Electronically Signed On 12-01-19 09:13:24 CDT by Tino Agarwal
== END 2019-11-30 20:19 | disposition short-term general hospital (02) ==
LOC: ER 16:59
DX: R53.1 Weakness (principal); I10 Essential (primary) hypertension; F41.9 Anxiety disorder, unspecified; E03.9 Hypothyroidism, unspecified
CPT/HCPCS: 96361; 93005; 85025; 80048; 36415; 83735; 85610; 82947; 80076; 85730; 84484; 83880; 70450; 71045; 96375; 96374; 99285; J0696; J7030; J2405

== ENCOUNTER 2020-04-23 16:56 | Emergency (ER) | payer OTHER, BC ==
--- OUTSIDE RECORDS SUMMARY | 2020-04-23 16:59 | XMS REPORT | Clinical Summary ---
:1940 Author Organization [facility] Address [address] [place] [address] Care Team Providers Name Role Phone Link Barron MD Primary Care Provider Allergies Active Allergy Reactions Severity Noted Date Comments Codeine 11/24/2015 Medications Medication Sig Dispensed Refills Start End Status Date Date cetirizine (ZyrTEC) 10 Take 10 mg 0 Active MG tablet by mouth daily. diclofenac (VOLTAREN) 1 APPLY 500 g 0 11/02/19 Active % gel TOPICALLY 4 20 (FOUR) TIMES A DAY. APPLY 1-2 GRAMS TO AFFECTED AREA 3-4 TIMES DAILY. levothyroxine TAKE 1 90 tablet 1 01/01/20 Active (SYNTHROID) 75 mcg TABLET BY 20 tablet MOUTH EVERY DAY IN THE MORNING atorvastatin (LIPITOR) TAKE 1 90 tablet 1 01/01/20 Active 20 MG tabletIndications: TABLET BY 20 Pure MOUTH EVERY hypercholesterolemia DAY FLUoxetine (PROzac) 20 TAKE 1 90 capsule 1 02/24/20 Active MG capsule CAPSULE BY 20 MOUTH EVERY DAY losartan-hydrochlorothia TAKE 1 90 tablet 1 04/06/20 Active zide (HYZAAR) 50-12.5 mg TABLET BY 20 per tablet MOUTH EVERY DAY sulfamethoxazole-trimeth Take 1 0 04/17/20 Active oprim (BACTRIM DS) tablet by 20 800-160 mg per tablet mouth 2 (two) times a day. X 10 days mupirocin (BACTROBAN) 2 Apply 0 04/17/20 Active % ointment topically 20 daily. atorvastatin (LIPITOR) TAKE 1 90 tablet 1 10/30/19 09/30/2 Discontinued 20 MG tabletIndications: TABLET BY 19 019 (Reorder) Pure MOUTH EVERY hypercholesterolemia DAY levothyroxine TAKE 1 90 tablet 1 10/30/19 Discon tinued (SYNTHROID, LEVOXYL) 75 TABLET BY 19 019 (Reorder) mcg tablet MOUTH EVERY MORNING losartan-hydrochlorothia Take 1 90 tablet 1 02/29/2006/25 Discontinued zide (HYZAAR) 50-12.5 mg tablet by 19 019 (Reorder) per tablet mouth daily. FLUoxetine (PROzac) 20 TAKE 1 90 capsule 1 03/25/20 Discontinued MG capsule CAPSULE BY 19 019 (Reorder ) MOUTH EVERY DAY celecoxib (CeleBREX) 200 TAKE 1 60 capsule 0 04/07/2004/19 0/ MG capsule CAPSULE (200 19 019 MG TOTAL) BY MOUTH 2 (TWO) TIMES A DAY FOR 30 DAYS. levothyroxine TAKE 1 90 tablet 1 06/17/20 Discon tinued (SYNTHROID, LEVOXYL) 75 TABLET BY 19 019 (Reorder) mcg tablet MOUTH EVERY MORNING atorvastatin (LIPITOR) TAKE 1 90 tablet 1 06/17/20 Discontinued 20 MG tabletIndications: TABLET BY 19 019 (Reorder) Pure MOUTH EVERY hypercholesterolemia DAY losartan-hydrochlorothia Take 1 90 tablet 1 06/25/2004/06 Discontinued zide (HYZAAR) 50-12.5 mg tablet by 19 020 per tablet mouth daily. levothyroxine Take 1 90 tablet 1 06/25/20 Discon tinued (SYNTHROID) 75 mcg tablet (75 19 020 tablet mcg total) by mouth every morning. FLUoxetine (PROzac) 20 Take 1 90 capsule 1 06/25/20 Discontinued MG capsule capsule (20 19 020 mg total) by mouth daily. atorvastatin (LIPITOR) Take 1 90 tablet 1 06/25/20 Discontinued 20 MG tabletIndications: tablet (20 19 020 Pure mg total) by hypercholesterolemia mouth daily. Default OP ins diclofenac (VOLTAREN) 1 Apply 500 g 0 10/10/19 Discontinued % gel topically 4 020 (four) times a day. Apply 1-2 grams to affected area 3-4 times daily. sulfamethoxazole-trimeth Take 1 14 tablet 0 10/17/1910/24 oprim (BACTRIM DS) tablet by 20 020 800-160 mg per tablet mouth 2 (two) times a day for 7 days. ciprofloxacin (CIPRO) Take 1 10 tablet 0 10/22/19 500 MG tablet tablet (500 20 020 mg total) by mouth 2 (two) times a day for 5 days. 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 10/13/2017 Incomplete bladder emptying 10/13/2017 Recurrent UTI 10/13/2017 Incomplete defecation 10/13/2017 Lumbar post-laminectomy syndrome 01/04/2017 Osteoarthritis of lumbar spine 01/04/2017 Essential hypertension 11/24/2015 Depression 11/24/2015 Gastroesophageal reflux disease with esophagitis 11/23 HLD (hyperlipidemia) 11/24/2015 Acquired hypothyroidism 11/24/2015 Low back pain 11/24/2015 Resolved Problems Problem Noted Date Resolved Date Angina pectoris 02/27/2018 06/25/2019 Encounters Date Type Specialty Care Team Description 04/20/2020 Office Visit Internal Medicine Link Barron on of left hand without foreign body, initial encounter (Primary Dx); MD Daniel Immunization du e 04/20/2020 Travel 04/03/2020 Refill Internal Medicine Link Barron MD 02/24/2020 Lab Lab Link Barron Essential hyp ertension; MD Daniel Pure hyperchole sterolemia; Acquired hypoth yroidism 02/24/2020 Office Visit Internal Medicine Link Barron Routine general medical examination at a health care facility (Primary Dx); MD Daniel Current moderat e episode of major depressive disorder, unspecified whether recurrent (HCC); Essential hyper tension; Acquired hypoth yroidism; Pure hyperchole sterolemia 02/24/2020 Travel 02/22/2020 Refill Internal Medicine Link Barron MD 12/31/2019 Refill Internal Medicine Link Barron Pure hyp ercholesterolemia MD Daniel 12/19/2019 Telephone Internal Medicine Link Barron MD 12/19/2019 Telephone Internal Medicine Link Barron MD 12/19/2019 Travel 12/19/2019 Telephone Internal Medicine Link Barron MD 10/31/2019 Refill Orthopedic Surgery Randolph Blanchard MD 10/22/2019 Orders Only Internal Medicine Kristina Cast MA 10/19/2019 Orders Only Internal Link Resendiz MD 10/17/2019 Office Visit Internal Medicine Link Barron Dysuria (Primary Dx); MD Daniel Acute right-pato ed low back pain, unspecified whether sciatica present; Essential hyper tension 10/17/2019 Telephone Family Medicine Link Barron MD 10/10/2019 Office Visit Orthopedic Surgery Randolph Blanchard Arthriana s of midfoot (Primary Dx); MD Alma Right foot pain ; Hallux valgus, right; Hammertoe of se cond toe of right foot 06/25/2019 Office Visit Internal Medicine Link Barron Essentia l hypertension (Primary Dx); MD Daniel Pure hyperchole sterolemia; Acquired hypoth yroidism; Current moderat e episode of major depressive disorder, unspecified whether recurrent (HCC); Need for influe nza vaccination 06/17/2019 Refill Internal Medicine Link Barron Pure hyp ercholesterolemia MD Daniel after 04/23/2019 Immunizations Name Administration Dates Next Due FLUZONE HIGH-DOSE PF 06/25/2019, 08/27/2018, 06/10/2015 Pneumococcal Conjugate 06/03/2015 Pneumococcal Conjugate 13-Valent 06/03/2015 Pneumococcal Polysaccharide 07/21/2009 Tdap 04/20/2020, 08/18/2008 Zoster 06/09/2010 Family History Medical History Relation Name Comments Cancer Maternal Grandfather Alzheimer's disease Mother Relation Name Status Comments Father (Age 20) Maternal Grandfather Mother (Age 87 y) Sister Alive Social History Tobacco Use Types Packs/Day Years Used Date Former Smoker Cigarettes 0.75 30 Quit: 1994 Smokeless Tobacco: Never Used Tobacco Cessation: Counseling Given: No Alcohol Use Drinks/Week oz/Week Comments Yes 3 Glasses of wine 3.0 Sex Assigned at Date Recorded Not on file Job Start Date Occupation Industry Not on file Not on file Not on file Travel History Travel Start Travel End No recent travel history available. COVID-19 Exposure Response Date Recorded In the last month, have you been in contact with No / Unsure 04/20/2020 2:24 PM CDT someone who was confirmed or suspected to have Coronavirus / COVID-19? Last Filed Vital Signs Vital Sign Reading Time Taken Comments Blood Pressure 144/84 04/20/2020 2:42 PM CDT Pulse 83 04/20/2020 2:42 PM CDT Temperature 36.4 C (97.5 F) 10/17/2019 1:16 PM [employer] Respiratory Rate - - Oxygen Saturation 97% 04/20/2020 2:42 PM CDT Inhaled Oxygen Concentration - - Weight 87.1 kg (192 lb) 04/20/2020 2:42 PM CDT Height 162.6 cm (5' 4") 04/20/2020 2:42 PM CDT Body Mass Index 32.96 04/20/2020 2:42 PM CDT Plan of Treatment Date Type Specialty Care Team Description 05/29/2020 Office Visit Internal Medicine Link Barron MD [id number] [phone] Health Maintenance Due Date Last Done Comments SHINGLES VACCINES (#2) 08/09/2010 06/09/2010 INFLUENZA VACCINE 04/18/2020 06/25/2019, 08/27/2018, 2017, Additional history exists 65+ PNEUMOCOCCAL VACCINE Completed 06/03/2015, 06/03/2015, 07/21/2009 Procedures Procedure Name Priority Date/Time Associated Diagnosis Comme nts URINALYSIS, Routine 02/24/2020 8:39 Essential hypertension R esults for AUTOMATED WITH AM CDT this procedur e MICROSCOPY are in the results section. THYROID STIMULATING Routine 02/24/2020 8:39 Acquired hypothyr oidism Results for HORMONE AM CDT this procedure are in the results section. LIPID PANEL Routine 02/24/2020 8:39 Pure hypercholesterolemi a Results for AM CDT this procedure are in the results section. HEPATIC FUNCTION Routine 02/24/2020 8:39 Pure hypercholestero lemia Results for PANEL AM CDT this procedure are in the results section. CBC WITH PLATELET Routine 02/24/2020 8:39 Essential hypertens ion Results for AND DIFFERENTIAL AM CDT this proced ure are in the results section. BASIC METABOLIC Routine 02/24/2020 8:39 Essential hypertensio n Results for PANEL AM CDT this procedure are in the results section. URINE CULTURE Routine 10/20/2019 12:28 Results fo r AM [employer] this procedure are in the results section. XR FOOT 3+ VW RIGHT Routine 10/10/2019 12:57 Right foot pain R esults for PM [employer] this procedure are in the results section. LIPID PANEL Routine 06/20/2019 10:30 Pure hypercholesterolemi a Results for AM CDT this procedure are in the results section. HEPATIC FUNCTION Routine 06/20/2019 10:30 Pure hypercholestero lemia Results for PANEL AM CDT this procedure are in the results section. THYROID STIMULATING Routine 06/20/2019 10:30 Acquired hypothyr oidism Results for HORMONE AM CDT this procedure are in the results section. URINALYSIS, Routine 06/20/2019 10:30 Essential hypertension R esults for AUTOMATED WITH AM CDT this procedur e MICROSCOPY are in the results section. CBC WITH PLATELET Routine 06/20/2019 10:30 Pure hypercholester olemia Results for AND DIFFERENTIAL AM CDT this proced ure are in the results section. BASIC METABOLIC Routine 06/20/2019 10:30 Essential hypertensio n Results for PANEL AM CDT this procedure are in the results section. after 04/23/2019 Results Urinalysis, automated with microscopy (02/24/2020 8:39 AM CDT)Only the most recent of2 resultswithin the time period is included. Color, UA YELLOW YELLOW [facility] [place] Appearance CLEAR CLEAR [facility] Specific gravity, 1.012 1.001 - 1.035 [facility] urine [place] pH, urine 6.0 5.0 - 8.0 [facility] [place] Glucose, urine NEGATIVE NEGATIVE [facility] Bilirubin, UA NEGATIVE NEGATIVE [facility] [place] Ketones, UA NEGATIVE NEGATIVE [facility] Occult blood, urine NEGATIVE NEGATIVE [facility] Protein, UA NEGATIVE NEGATIVE [facility] Nitrite, UA NEGATIVE NEGATIVE [facility] [place] Leukocyte esterase, NEGATIVE NEGATIVE [facility] UA [place] WBC, UA NONE SEEN < OR = 5 /HPF [facility] [place] RBC, UA NONE SEEN < OR = 2 /HPF [facility] [place] Squamous epithelial 0-5 < OR = 5 /HPF [facility] cells, UA [place] Bacteria, UA NONE SEEN NONE SEEN /HPF [facility] [place] Hyaline casts, UA NONE SEEN NONE SEEN /LPF [facility] [place] Specimen Blood Resulting Agency Comment Performing Organization Information: Site ID: [id number] Name: [facility] Triplett Address: [address] [place] [phone] Director: Abbe Mata Performing Organization Address City/State/Zipcode Phone Number O[facility]IE [facility] [place] [address] [place] [phone] CBC with platelet and differential (02/24/2020 8:39 AM CDT)Only the most recent of2 resultswithin the time period is included. WBC 7.5 3.8 - 10.8 [facility] Thousand/uL [place] RBC 3.94 3.80 - 5.10 [facility] Million/uL [place] HGB 11.8 11.7 - 15.5 [facility] g/dL [place] HCT 37.0 35.0 - 45.0 % [facility] [place] MCV 93.9 80.0 - 100.0 fL [facility] [place] MCH 29.9 27.0 - 33.0 pg [facility] MCHC 31.9 (L) 32.0 - 36.0 [facility] g/dL [place] RDW 11.9 11.0 - 15.0 % [facility] Platelet count 268 140 - 400 [facility] Thousand/uL [place] MPV 10.4 7.5 - 12.5 fL [facility] [place] Neutrophils, absolute 4,785 1,500 - 7,800 [facility] cells/uL [place] Lymphocytes, absolute 2,025 850 - 3,900 [facility] cells/uL [place] Monocytes, absolute 510 200 - 950 [facility] cells/uL [place] Eosinophils, absolute 143 15 - 500 [facility] cells/uL [place] Basophils, absolute 38 0 - 200 [facility] cells/uL [place] Neutrophils 63.8 % [facility] [place] Lymphocytes 27.0 % [facility] Monocytes 6.8 % [facility] [place] Eosinophils 1.9 % [facility] Basophils + RC 0.5 % [facility] Specimen Blood Resulting Agency Comment Performing Organization Information: Site ID: [id number] Name: [facility] Address: [address] [place] [phone] Director: Abbe Mata Performing Organization Address City/State/Zipcode Phone Number [facility]IE [facility] [address] [place] [phone] Thyroid stimulating hormone (02/24/2020 8:39 AM CDT)Only the most recent of2 resultswithin the time period is included. Pathologist Sig nature TSH 1.34 0.40 - 4.50 mIU/L [facility] ON Specimen Blood Resulting Agency Comment Performing Organization Information: Site ID: [facility] Name: [facility] Address: [address] [place] [phone] Director: Abbe Mata Performing Organization Address City/[facility] Phone Number [facility] [place] [address] Hepatic function panel (02/24/2020 8:39 AM CDT)Only the most recent of2 results within the time period is included. Pathologist Sig nature Protein 6.7 6.1 - 8.1 g/dL [facility] Albumin, S 4.2 3.6 - 5.1 g/dL [facility] Globulin, total 2.5 1.9 - 3.7 g/dL [facility] (calc) [place] Albumin/globulin ratio 1.7 1.0 - 2.5 [facility] (calc) [place] Total bilirubin 0.6 0.2 - 1.2 mg/dL [facility] [place] Bilirubin direct 0.1 < OR = 0.2 [facility] mg/dL [place] Bilirubin, indirect 0.5 0.2 - 1.2 mg/dL [facility] (calc) [place] Alkaline phosphatase 112 37 - 153 U/L [facility] AST 16 10 - 35 U/L [facility] ALT 17 6 - 29 U/L [facility] Specimen Blood Resulting Agency Comment Performing Organization Information: Site ID: [facility] Name: [facility] Address: [address] [place] [phone] Director: Abbe Mata Performing Organization Address [facility] Phone Number [facility] [address] [address] Lipid panel (02/24/2020 8:39 AM CDT)Only the most recent of2 resultswithin the time period is included. Cholesterol, total 176 <200 mg/dL [facility] [place] HDL cholesterol 53 > OR = 50 [facility] mg/dL [place] Triglycerides 145 <150 mg/dL [facility] [place] LDL cholesterol 98 mg/dL (calc) [facility] calculated Comment: [place] Reference range: <100 Desirable range <100 mg/dL for primary prevention; <70 mg/dL for patients with CHD or diabetic patients with > or = 2 CHD risk factors. LDL-C is now calculated using the Abram calculation, which is a validated novel method providi ng better accuracy than the Friedewald equation in the estimation of LDL-C. Kyaw LOMELI et al. BRANDIE. 2013;310(19): 5962-6175 (http://education.[employer]/faq/RQZ331) Cholesterol/HDL 3.3 <5.0 (calc) [facility] ratio [place] Non-HDL cholesterol 123 <130 mg/dL [employer] [facility] Comment: (calc) MOLINA For patients with diabetes plus 1 major ASCVD risk factor, treating to a non-HDL-C goal of <100 mg/dL (LDL-C of <70 mg/dL) is considered a therapeutic option. Specimen Blood Resulting Agency Comment Performing Organization Information: Site ID: [id number] Name: [facility] Address: [address] [place] [phone] Director: Abbe Mata Performing Organization Address City/State/Zipcode Phone Number [facility] [place] [phone] Basic metabolic panel (02/24/2020 8:39 AM CDT)Only the most recent of2 results within the time period is included. [facility] Glucose 108 (H) 65 - 99 [facility] Comment: mg/dL [place] Fasting reference interval For someone without known diabetes, a glucose value between 100 and 125 mg/dL is consistent with prediabetes and should be confirmed with a follow-up test. BUN 11 7 - 25 mg/dL [facility] Creatinine 0.77 0.60 - 0.93 [facility] Comment: mg/dL [facility] For patients >49 years of age, the reference limit for Creatinine is approximately 13% higher for people identified as -[place]. EGFR Non-Afr. 74 > OR = 60 [facility] [place] mL/min/1.73m [place] 2 EGFR 86 > OR = 60 [facility] [place] mL/min/1.73m [place] 2 BUN/creatinine NOT APPLICABLE 6 - 22 [facility] ratio (calc) [place] Sodium 135 135 - 146 [facility] mmol/L [place] Potassium 4.7 3.5 - 5.3 [facility] mmol/L [place] Chloride 100 98 - 110 [facility] mmol/L [place] CO2 30 20 - 32 [facility] mmol/L [place] Calcium 9.6 8.6 - 10.4 [facility] mg/dL [place] Specimen Blood Resulting Agency Comment Performing Organization Information: Site ID: [facility] Name: [facility] Address: [address] [place] [phone] Director: Abbe Mata Performing Organization Address [facility] Hospital[facility] [place] [address] Urine culture (10/20/2019 12:28 AM [employer] SUPER[employer]OR) Urine culture SEE NOTE (A) [facility] Comment: [place] CULTURE, URINE, ROUTINE Micro Number: [id number] Test Status: Final Specimen Source: URINE Specimen Quality: Adequate Result: 50,000-100,000 CFU/mL of E nterococcus faecalis COMMENT: Additional organism(s) less than 10,000 CFU/mL isolated. These organis ms, commonly found on external and internal genitalia, are considered colonizers. No further testing performed. E.faecalis - INT DAHLIA AMPICILLIN S <=2 CIPROFLOXACIN S 1 LEVOFLOXACIN S 2 NITROFURANTOIN S <=16 TETRACYCLINE R >=16 VANCOMYCIN S 1 S=Susceptible I=Intermediate R=Resistant * = Not Tested NR = Not Reported NN = See Therapy Comments NO COLLECTION DATE RECEIVED. WE HAVE USED THE DATE THE SPECIMEN WAS RECEIVED BY THIS LABORATORY THE COLLECTION DATE. IF THIS IS INCORRECT, PLEASE CONTACT CLIENT SERVICES. PHONE NUMBER: [phone] Specimen Narrative Performed At FASTING: UNKNOWN [facility] Resulting Agency Comment Performing Organization Information: Site ID: [id number] Name: [facility] Address: [address] [place] [phone] Director: Abbe Mata Performing Organization Address [facility]/Zipcode Phone Number [facility] [address] [place] [phone] XR Foot 3+ Vw Right (10/10/2019 12:57 PM [employer] SUPERVISOR) Specimen Addenda Addendum by Randolph Blanchard MD on 10/20 9:48 AM Second and third tarsometatarsal arthrit is changes noted. Narrative Performed At This result has an attachment that is no t available. 3 weightbearing views of the right foot demonstrate no acute fractures. [facility] Moderate hallux valgus deformity is seen. Associated second hammertoe deformity is noted. No significant joint degenerativ e changes are seen. Performing Organization Address City/State/Zipcode Phone Number [facility] [address] [place] [address] after 04/23/2019 Insurance Payer Benefit Plan / Subscriber ID Effective Dates Phone Addre ss Type Group MEDICARE MEDICARE PART A xxxxxxxxxxx 2006-Present [place], [place] Medicare AND B BCBS BCBS CHOICE xxxxxxxxx 2015-Present P PO PPO/F[employer]ERAL EMPL PPO Advance Directives For more information, please contact: [phone] Type Date Recorded Patient Donor Relations Manager Explanati on Advance Directives, Living Will and Medical Power of Accounting Manager
--- OUTSIDE RECORDS SUMMARY | 2020-04-23 17:00 | XMS REPORT | Clinical Summary ---
:1940 Author Organization [facility] Address [address] [place] [id number] Care Team Providers Name Role Phone Unavailable Primary Care Provider Unavailable Allergies No Known Allergies Medications Medication Sig Dispensed Refills Start Date End Date Status losartan-hydroCHLOROth Take 1 tablet 0 Active iazide (HYZAAR) 100-25 by mouth daily. mg per tabletIndications: high blood pressure levothyroxine Take 75 mcg by 0 A ctive (SYNTHROID, mouth Every LEVOTHROID) 75 MCG morning on an tablet empty stomach. FLUoxetine (PROZAC) 20 Take 20 mg by 0 Active MG tabletIndications: mouth daily. anxiousness associated with depression atorvastatin (LIPITOR) Take 20 mg by 0 Active 20 MG mouth daily. tabletIndications: excessive fat in the blood cetirizine (ZYRTEC) 10 Take 10 mg by 0 Active MG tabletIndications: mouth daily. seasonal runny nose ergocalciferol Take 1 capsule 8 capsule 0 12/09/2019 0 (ERGOCALCIFEROL) 1,250 (50,000 Units mcg (50,000 unit) total) by mouth capsule once a week for 8 doses. folic acid (FOLVITE) 1 Take 1 tablet 30 tablet 0 12/03/2019 MG tablet (1 mg total) by mouth daily for 30 days. Active Problems Problem Noted Date Panic attack as reaction to stress 12/02/2019 Obesity 12/02/2019 Anxiety about health 12/01/2019 Aphasia 11/30/2019 Essential hypertension 11/30/2019 Hypothyroid 11/30/2019 Encounters Date Type Specialty Care Team Description 12/04/2019 Telephone Geriatric Medicine Bernarda Jeong PA hospit al followup 12/03/2019 Documentation Geriatric Medicine Andrew Vásquez MD 11/30/2019 - Hospital Encounter Cardiology Sayda Maya damaris (Primary Dx); 12/02/2019 MD Maria Teresa TIA (transient ischemic attack); Gage, Essential hyper tension; MD Tim Anxiety about health; Annette Gonzalez Gait instab ility; MD Marli Fall, subsequen t encounter; Alcohol abuse c ounseling and surveillance; Alcohol use 11/30/2019 Travel after 04/23/2019 Social History Tobacco Use Types Packs/Day Years Used Date Never Smoker Smokeless Tobacco: Never Used Alcohol Use Drinks/Week oz/Week Comments No Alcohol Habits Answer Date Recorded How often do you have a drink containing alcohol? Never 11/30/2019 How many drinks containing alcohol do you have on a typical Not asked day when you are drinking? How often do you have six or more drinks on one occasion? No t asked Sex Assigned at Date Recorded Not on file Job Start Date Occupation Industry Not on file Not on file Not on file Travel History Travel Start Travel End No recent travel history available. Last Filed Vital Signs Vital Sign Reading Time Taken Blood Pressure 188/91 12/02/2019 11:01 AM CDT Pulse 69 12/02/2019 11:01 AM CDT Temperature 35.8 C (96.4 F) 12/02/2019 3:09 PM CDT Respiratory Rate 16 12/02/2019 11:01 AM CDT Oxygen Saturation 98% 12/02/2019 11:01 AM CDT Inhaled Oxygen Concentration - - Weight 88.9 kg (195 lb 14.4 oz) 12/01/2019 10:5 7 AM CDT Height - - Body Mass Index - - Plan of Treatment Health Maintenance Due Date Last Done Comments PNEUMOCOCCAL 65+ LOW/MEDIUM RISK (1 of 2 - PCV13) 2007 MEDICARE ANNUAL WELLNESS (YEAR 2 or FIRST YEAR if no 12/19/2007 IPPE) INFLUENZA VACCINE (#1) 2020 Procedures Procedure Name Priority Date/Time Associated Comments Diagnosis REPORT OF PROCEDURE - 12/03/2019 12:20 ENDOSCOPY SCAN PM CDT RHYTHM STRIP - SCAN 12/03/2019 12:20 PM CDT ECHOCARDIOGRAM REPORT - 12/02/2019 9:23 SCAN PM CDT 2D ECHO W/ DOPPLER Routine 12/02/2019 9:59 Resul ts for this (CW/PW/COLOR) AM CDT procedure are in the results section. CBC W/PLT COUNT & AUTO Routine 12/02/2019 4:10 R esults for this DIFFERENTIAL AM CDT procedure are i n the results section. VITAMIN B12 AND FOLATE Routine 12/02/2019 4:10 R esults for this AM CDT procedure are i n the results section. VITAMIN D, 25-HYDROXY Routine 12/02/2019 4:10 Re sults for this AM CDT procedure are i n the results section. CBC W/PLT COUNT & AUTO Routine 12/02/2019 4:10 R esults for this DIFFERENTIAL AM CDT procedure are i n the results section. BASIC METABOLIC PANEL Routine 12/02/2019 4:09 Re sults for this (7) AM CDT procedure are i n the results section. MR BRAIN WITHOUT IV Routine 12/01/2019 12:00 Resu lts for this CONTRAST PM CDT procedure are i n the results section. MRA NECK WITHOUT IV Routine 12/01/2019 12:00 Resu lts for this CONTRAST PM CDT procedure are i n the results section. MRA HEAD WITHOUT IV Routine 12/01/2019 12:00 Resu lts for this CONTRAST PM CDT procedure are i n the results section. CBC W/PLT COUNT & AUTO Routine 12/01/2019 5:23 R esults for this DIFFERENTIAL AM CDT procedure are i n the results section. VITAMIN B12 AND FOLATE Routine 12/01/2019 5:23 R esults for this AM CDT procedure are i n the results section. TSH/FREE T4 IF Routine 12/01/2019 5:23 Results f or this INDICATED AM CDT procedure are i n the results section. LIPID PANEL Routine 12/01/2019 5:23 Results for this AM CDT procedure are i n the results section. HEMOGLOBIN A1C Routine 12/01/2019 5:23 Results f or this AM CDT procedure are i n the results section. CBC W/PLT COUNT & AUTO Routine 12/01/2019 5:23 R esults for this DIFFERENTIAL AM CDT procedure are i n the results section. C-REACTIVE PROTEIN Routine 12/01/2019 5:23 Resul ts for this AM CDT procedure are i n the results section. BASIC METABOLIC PANEL Routine 12/01/2019 5:23 Re sults for this (7) AM CDT procedure are i n the results section. after 04/23/2019 Results EKG-SCANNED (12/03/2019 12:20 PM CDT) Narrative Performed At This result has an attachment that is no t available. RHYTHM STRIP - SCAN (12/03/2019 12:20 PM CDT) Narrative Performed At This result has an attachment that is no t available. ECHOCARDIOGRAM REPORT - SCAN (12/02/2019 9:23 PM CDT) Narrative Performed At This result has an attachment that is no t available. Transthoracic 2D echo w/ doppler (cw/pw/color) (12/02/2019 9:59 AM CDT) Ejection Fraction [facility] Specimen Narrative Performed At Transthoracic Echocardiography Report (T TE) [facility] Demographics Patient Name MAGGIE HURTADO Date of Study 12/02/2019 CEDRICK [id number] Gender Female Visit Number [id number] Vianey own [id number] Room Number 2415 Number Date of Birth1940 Referring Physician ANNETTE GONZALEZ Age79 year(s) Entry Operator Masoud Stephen [facility] InterpretingJosemarilee brown Physician Procedure Type of Study TTE procedure:2DECHO W DOPPLER(CW/PW/COLOR) (Routine) Indications:Unexplained Pre-syncope/Sync ope. Clinical History Hypertension Thyroid disease HGB 11.7 HCT 37.4 % Height: 63.5 inches Weight: 88.45 kg (195 lbs) BSA: 1.92 m^2 BMI: 34 kg/m^2 HR: 60 bpm BP: 177/99 mmHg Summary The left ventricle is chamber size (by PSLAX dimension) is normal (female - LVIDd 3.8-5.2cm) . Mild concentric LV hypertrophy. All of the LV segments contract normally . Estimated LVEF by qualitative assessment is normal (>60%) . Grade 1 diastolic dysfunction (impaired relaxation and low-normal LA pressure). Estimated peak systolic PA pressure is 30-35 mmHg . No pericardial effusion is visualized. Signature Findings Left Ventricle The left ventricle is chamber size (by PSLAX di mension) is normal (female - LVIDd 3.8-5 .2cm) . Mi ld concentric LV hypertrophy. All of the LV se gments contract normally . Estimated LVE F by qu alitative assessment is normal (>60%) . Grade 1 di astolic dysfunction (impaired relaxation and lo w-normal LA pressure). Left AtriumLA size is normal (16-34 ml/m2) . Right VentricleThe right ventricular chamber size and systolic fu nction are within normal limits. Right Atrium RA size is normal. Aortic Valve Normal AoV structure. Mitral Valve Mild MV leaflet thickening. Tr jada mitral regurgitation. Tricuspid ValveTV structure is normal. Mi ld tricuspid regurgitation. Es timated peak systolic PA pressure is 30- 35 mmHg . Pulmonic Valve Normal PV structure and function by limited views an d Doppler. AortaAortic root size (SInus of Valsalva diameter) i s no rmal . PericardiumNo pericardial effusion is visualized. IVC/SVC/PA/PV/PleuralThe estimated RA pressure by IVC dynamics 5-10mmHg . Chambers/Structures Left Atrium LA Dimension: 3.74 cmLA Area: 15.04 cm^2 LA Volume: 35.33 ml LA Vol. Index: 18 ml/m^2 Left Ventricle LVIDd: 3.83 cm LVEDV:6 4.77 ml LVIDs: 2.27 cm LV Septum Diastolic: 1.28 cm LV PW Diastolic: 1.35 cm LV FS: 40.7 % LVOT Diameter: 1.92 cm Aorta Ao Root S of Callie.: 3.14 cm Doppler/Quantitative Measurements LVOT Peak Velocity: 0.8 m/sPeak Gradient: 2.59 mmHg Mean Velocity: 0.49 m/s Mean Gradient: 1.16 mmHg LVOT Diameter: 1.92 cmLVOT VTI: 19.25 cm LVOT Area: 2.9 cm^2 LVOT SV:55.71 ml LVOT CO: 3.34 l/min LVOT CI: 1.74 l/min/m^2 Procedure Note Interface, External Ris In - 12/02/2019 11:22 AM CDT Transthoracic Echocardiography Report (TTE) Demographics Patient Name MAGGIE HURTADO Date of Study 12/02/2019 CEDRICK Ly barbosa Female Visit Number [id number] Race Unknown Room Number 2415 Number Date of 1940 Refer [facility] Physician ANNETTE GONZALEZ Age 79 year(s) Sonog rapher Masoud Stephen [facility] Inter preting Fanny Núñez MD Procedure Type of Study TTE procedure:2DECHO W TALON R(CW/PW/COLOR) (Routine) Indications:Unexplained Pre-syncope/Sync ope. Clinical History Hypertension Thyroid disease HGB 11.7 HCT 37.4 % Height: 63.5 inches Weight: 88.45 kg (19 5 lbs) BSA: 1.92 m^2 BMI: 34 kg/m^2 HR: 60 bpm BP: 177/99 mmHg Summary The left ventricle is chamber size (by PSLAX dimension) is normal (female - LVIDd 3.8-5.2cm) . Mild concentric LV hypertrophy. All of the LV segments contract normally . Estimated LVEF by qualitative assessment is normal (>60%) . Grade 1 diastolic dysfu nction (impaired relaxation and low-normal LA pressure). Estimated peak systolic PA pressure is 30-35 mmHg . No pericardial effusion is visualized. Signature Findings Left Ventricle The left ventric le is chamber size (by PSLAX dimension) is no rmal (female - LVIDd 3.8-5.2cm) . Mild concentric LV hypertrophy. All of the LV segments contrac t normally . Estimated LVEF by qualitative asse ssment is normal (>60%) . Grade 1 diastolic dysfun ction (impaired relaxation and low-normal LA pr essure). Left Atrium LA size is gene l (16-34 ml/m2) . Right Ventricle The right ventri cular chamber size and systolic function are wit hin normal limits. Right Atrium RA size is gene l. Aortic Valve Normal AoV struc ture. Mitral Valve Mild MV leaflet thickening. Trace mitral reg urgitation. Tricuspid Valve TV structure is normal. Mild tricuspid r egurgitation. Estimated peak s ystolic PA pressure is 30-35 mmHg . Pulmonic Valve Normal PV struct ure and function by limited views and Doppler. Aorta Aortic root size (SInus of Valsalva diameter) is normal . Pericardium No pericardial e ffusion is visualized. IVC/SVC/PA/PV/Pleural The estimated RA pressure by IVC dynamics 5-10mmHg . Chambers/Structures Left Atrium LA Dimension: 3.74 cm LA Area: 15.04 cm^2 LA Volume: 35.33 ml LA Vol. Index: 18 ml/m^2 Left Ventricle LVIDd: 3.83 cm LVEDV:64.77 ml LVIDs: 2.27 cm LV Septum Diastolic: 1.28 cm LV PW Diastolic: 1.35 cm LV FS: 40.7 % LVOT Diameter: 1.92 cm Aorta Ao Root S of Callie.: 3.14 cm Doppler/Quantitative Measurements LVOT Peak Velocity: 0.8 m/s Pea k Gradient: 2.59 mmHg Mean Velocity: 0.49 m/s Sofia n Gradient: 1.16 mmHg LVOT Diameter: 1.92 cm LVO T VTI: 19.25 cm LVOT Area: 2.9 cm^2 LVO T SV:55.71 ml LVOT CO: 3.34 l/min LVO T CI: 1.74 l/min/m^2 Performing Organization Address City/State/Zipcode Phone Number [facility] Vitamin B12 and Folate (12/02/2019 4:10 AM CDT)Only the most recent of2 results within the time period is included. Vitamin B12 267 213 - 816 pg/mL [facility] Folate 7.9 >=7.0 ng/mL [facility] Specimen Blood Narrative Performed At Foreign Student Adviser Teacher ID - FEMI Yanes [facility] Performing Organization Address City/State/Zipcode Phone Number [facility] [address] [place] [address] CENTER CBC with platelet count + automated diff (12/02/2019 4:10 AM CDT)Only the most recent of2 resultswithin the time period is included. WBC 6.2 3.5 - 10.5 K/L [facility] RBC 3.88 (L) 3.93 - 5.22 M/L [facility] Hemoglobin 11.7 11.2 - 15.7 GM/DL [facility] Hematocrit 37.4 34.1 - 44.9 % [facility] MCV 96.4 (H) 79.4 - 94.8 fL [facility] MCH 30.2 25.6 - 32.2 pg [facility] MCHC 31.3 (L) 32.2 - 35.5 GM/DL [facility] RDW 13.2 11.7 - 14.4 % [facility] Platelets 198 150 - 450 K/CU MM [facility] MPV 10.4 9.4 - 12.3 fL [facility] nRBC 0 0 - 0 /100 WBC [facility] % Neutros 49 % [facility] % Lymphs 39 % [facility] % Monos 8 % [facility] % Eos 3 % [facility] % Baso 1 % [facility] # Neutros 3.04 1.56 - 6.13 K/L [facility] # Lymphs 2.43 1.18 - 3.74 K/L [facility] # Monos 0.49 (H) 0.24 - 0.36 K/L [facility] # Eos 0.19 0.04 - 0.36 K/L [facility] # Baso 0.05 0.01 - 0.08 K/L [facility] Immature Granulocytes-Relative 1 0 - 1 % C HI [facility] Specimen Blood Performing Organization Address City/[facility] Phone Number [address] [address] [place] Vitamin D, 25-Hydroxy (12/02/2019 4:10 AM CDT) Vitamin D 25-Hydroxy 15.7 6.6 - 49.9 ng/mL [facility] Specimen Blood Narrative Performed At Effective 06/28/2017: Reference Range Ch amira [facility] New: 6.6-49.9 ng/mL Previous: 13.0-47.8 ng/mL Recommended Vitamin D Target Range: 30.0-40.0 ng/mL Foreign Student Adviser Teacher ID - LAURA Duran Performing Organization Address City/[facility]ode Phone Number [address] [address] CENTER Basic Metabolic Panel (12/02/2019 4:09 AM CDT)Only the most recent of2 results within the time period is included. Sodium 137 136 - 145 meq/L [facility] Potassium 3.7 3.5 - 5.1 meq/L [facility] Chloride 102 98 - 107 meq/L [facility] CO2 27 22 - 29 meq/L [facility] BUN 8 7 - 21 mg/dL [facility] Creatinine 0.81 0.57 - 1.25 mg/dL [facility] Glucose 98 70 - 105 mg/dL [facility] Calcium 9.1 8.4 - 10.2 mg/dL [facility] EGFR 69Comment: ESTIMATED GFR IS mL/min/1.73 sq m [facility] NOT ACCURATE CREATININE [facility] CLEARANCE IN PREDICTING GLOMERULAR FILTRATION RATE. ESTIMATED GFR IS NOT APPLICABLE FOR DIALYSIS PATIENTS. Specimen Blood Narrative Performed At Foreign Student Adviser Teacher ID - LAURA Duran [facility] Performing Organization Address City/State/Zipcode Phone Number [facility] [address] [place] [address] CENTER MR brain without IV contrast (12/01/2019 12:00 PM CDT) Specimen Narrative Performed At FINAL REPORT [facility] MR, BRAIN, WITHOUT CONTRAST, MR, MRA, NE CK, WITHOUT IV CONTRAST, MR, MRA, BRAIN, WITHOUT CONTRAST INDICATION: Neuro deficit, acute, stroke suspected Ischemic Stroke Evaluation TECHNIQUE: Multiplanar, multisequence MR images of the brain.3-D time of flight MRA of the cranial and ce rvical circulation. 2-D time of flight MRA of the neck. 3D MIP angiog raphic post-processing was performed. Stenosis evaluation utilized NASCET criteria. COMPARISON: None. FINDINGS: MRI BRAIN: Cerebral parenchyma: Local cerebral atro phy. No diffusion restriction. Midline structures: Normally positioned. Cerebellum and brainstem: Normal. Ventricles: Normal volume. Extra-axial spaces: Unremarkable. Calvarium and skull base: Normal signal. Paranasal sinuses and mastoid air cells: Visible chambers are clear. Orbital contents: No acute abnormality. Additional findings: None. MRA BRAIN: Internal carotid arteries: Patent. Middle cerebral arteries: Patent to dist al branches. Anterior cerebral arteries: Intact. Basilar system: Patent vertebrobasilar s ystem. Posterior cerebral arteries:Patent beyon d the quadrigeminal segments. Additional findings: None. MRA NECK: Common carotid arteries: Unremarkable. Bifurcations: No flow-limiting stenosis. Cervical internal carotid arteries: No f low limiting stenosis. Vertebral arteries: Codominant. No origi n or extracranial stenosis. IMPRESSION: Involutional changes without acute ische jl or parenchymal hemorrhage. No flow limiting stenosis in the major b ranch vessels of the cervical or cranial circulation. Signed: JR Chacko Robert MD Report Verified Date/Time:12/01/2019 12:32:02 Reading Location: [facility] C013V Neuro Natali ding Room Procedure Note Interface, External Ris In - 12/01/2019 12:34 PM CDT FINAL REPORT MR, BRAIN, WITHOUT CONTRAST, MR, MRA, NE CK, WITHOUT IV CONTRAST, MR, MRA, BRAIN, WITHOUT CONTRAST INDICATION: Neuro deficit, acute, stroke suspected Ischemic Stroke Evaluation TECHNIQUE: Multiplanar, multisequence MR images of the brain. 3-D time of flight MRA of the cranial and ce rvical circulation. 2-D time of flight MRA of the neck. 3D MIP angiog raphic post-processing was performed. Stenosis evaluation utilized NASCET criteria. COMPARISON: None. FINDINGS: MRI BRAIN: Cerebral parenchyma: Local cerebral atro phy. No diffusion restriction. Midline structures: Normally positioned. Cerebellum and brainstem: Normal. Ventricles: Normal volume. Extra-axial spaces: Unremarkable. Calvarium and skull base: Normal signal. Paranasal sinuses and mastoid air cells: Visible chambers are clear. Orbital contents: No acute abnormality. Additional findings: None. MRA BRAIN: Internal carotid arteries: Patent. Middle cerebral arteries: Patent to dist al branches. Anterior cerebral arteries: Intact. Basilar system: Patent vertebrobasilar s ystem. Posterior cerebral arteries:Patent beyon d the quadrigeminal segments. Additional findings: None. MRA NECK: Common carotid arteries: Unremarkable. Bifurcations: No flow-limiting stenosis. Cervical internal carotid arteries: No f low limiting stenosis. Vertebral arteries: Codominant. No origi n or extracranial stenosis. IMPRESSION: Involutional changes without acute ische jl or parenchymal hemorrhage. No flow limiting stenosis in the major b ranch vessels of the cervical or cranial circulation. Signed: JR Chacko Robert MD Report Verified Date/Time: 12/01/2019 1 2:32:02 Reading Location: [facility] B1 C013V Neuro [place] [facility] Room Performing Organization Address City/State/Zipcode Phone Number [facility] MRA neck without IV contrast (12/01/2019 12:00 PM CDT) Specimen Narrative Performed At FINAL REPORT [facility] MR, BRAIN, WITHOUT CONTRAST, MR, MRA, NE CK, WITHOUT IV CONTRAST, MR, MRA, BRAIN, WITHOUT CONTRAST INDICATION: Neuro deficit, acute, stroke suspected Ischemic Stroke Evaluation TECHNIQUE: Multiplanar, multisequence MR images of the brain.3-D time of flight MRA of the cranial and ce rvical circulation. 2-D time of flight MRA of the neck. 3D MIP angiog raphic post-processing was performed. Stenosis evaluation utilized NASCET criteria. COMPARISON: None. FINDINGS: MRI BRAIN: Cerebral parenchyma: Local cerebral atro phy. No diffusion restriction. Midline structures: Normally positioned. Cerebellum and brainstem: Normal. Ventricles: Normal volume. Extra-axial spaces: Unremarkable. Calvarium and skull base: Normal signal. Paranasal sinuses and mastoid air cells: Visible chambers are clear. Orbital contents: No acute abnormality. Additional findings: None. MRA BRAIN: Internal carotid arteries: Patent. Middle cerebral arteries: Patent to dist al branches. Anterior cerebral arteries: Intact. Basilar system: Patent vertebrobasilar s ystem. Posterior cerebral arteries:Patent beyon d the quadrigeminal segments. Additional findings: None. MRA NECK: Common carotid arteries: Unremarkable. Bifurcations: No flow-limiting stenosis. Cervical internal carotid arteries: No f low limiting stenosis. Vertebral arteries: Codominant. No origi n or extracranial stenosis. IMPRESSION: Involutional changes without acute ische jl or parenchymal hemorrhage. No flow limiting stenosis in the major b ranch vessels of the cervical or cranial circulation. Signed: JR Chacko Robert MD Report Verified Date/Time:12/01/2019 12:32:02 Reading Location: [facility] B1 C013V Neuro Natali ding Room Procedure Note Interface, External Ris In - 12/01/2019 12:34 PM CDT FINAL REPORT MR, BRAIN, WITHOUT CONTRAST, MR, MRA, NE CK, WITHOUT IV CONTRAST, MR, MRA, BRAIN, WITHOUT CONTRAST INDICATION: Neuro deficit, acute, stroke suspected Ischemic Stroke Evaluation TECHNIQUE: Multiplanar, multisequence MR images of the brain. 3-D time of flight MRA of the cranial and ce rvical circulation. 2-D time of flight MRA of the neck. 3D MIP angiog raphic post-processing was performed. Stenosis evaluation utilized NASCET criteria. COMPARISON: None. FINDINGS: MRI BRAIN: Cerebral parenchyma: Local cerebral atro phy. No diffusion restriction. Midline structures: Normally positioned. Cerebellum and brainstem: Normal. Ventricles: Normal volume. Extra-axial spaces: Unremarkable. Calvarium and skull base: Normal signal. Paranasal sinuses and mastoid air cells: Visible chambers are clear. Orbital contents: No acute abnormality. Additional findings: None. MRA BRAIN: Internal carotid arteries: Patent. Middle cerebral arteries: Patent to dist al branches. Anterior cerebral arteries: Intact. Basilar system: Patent vertebrobasilar s ystem. Posterior cerebral arteries:Patent beyon d the quadrigeminal segments. Additional findings: None. MRA NECK: Common carotid arteries: Unremarkable. Bifurcations: No flow-limiting stenosis. Cervical internal carotid arteries: No f low limiting stenosis. Vertebral arteries: Codominant. No origi n or extracranial stenosis. IMPRESSION: Involutional changes without acute ische jl or parenchymal hemorrhage. No flow limiting stenosis in the major b ranch vessels of the cervical or cranial circulation. Signed: JR Chacko Robert MD Report Verified Date/Time: 12/01/2019 1 2:32:02 Reading Location: [address] Performing Organization Address City/State/Zipcode Phone Number [facility] MRA head without IV contrast (12/01/2019 12:00 PM CDT) Specimen Narrative Performed At FINAL REPORT [facility] MR, BRAIN, WITHOUT CONTRAST, MR, MRA, NE CK, WITHOUT IV CONTRAST, MR, MRA, BRAIN, WITHOUT CONTRAST INDICATION: Neuro deficit, acute, stroke suspected Ischemic Stroke Evaluation TECHNIQUE: Multiplanar, multisequence MR images of the brain.3-D time of flight MRA of the cranial and ce rvical circulation. 2-D time of flight MRA of the neck. 3D MIP angiog raphic post-processing was performed. Stenosis evaluation utilized NASCET criteria. COMPARISON: None. FINDINGS: MRI BRAIN: Cerebral parenchyma: Local cerebral atro phy. No diffusion restriction. Midline structures: Normally positioned. Cerebellum and brainstem: Normal. Ventricles: Normal volume. Extra-axial spaces: Unremarkable. Calvarium and skull base: Normal signal. Paranasal sinuses and mastoid air cells: Visible chambers are clear. Orbital contents: No acute abnormality. Additional findings: None. MRA BRAIN: Internal carotid arteries: Patent. Middle cerebral arteries: Patent to dist al branches. Anterior cerebral arteries: Intact. Basilar system: Patent vertebrobasilar s ystem. Posterior cerebral arteries:Patent beyon d the quadrigeminal segments. Additional findings: None. MRA NECK: Common carotid arteries: Unremarkable. Bifurcations: No flow-limiting stenosis. Cervical internal carotid arteries: No f low limiting stenosis. Vertebral arteries: Codominant. No origi n or extracranial stenosis. IMPRESSION: Involutional changes without acute ische jl or parenchymal hemorrhage. No flow limiting stenosis in the major b ranch vessels of the cervical or cranial circulation. Signed: JR Chacko Robert MD Report Verified Date/Time:12/01/2019 12:32:02 Reading Location: [address] Procedure Note Interface, External Ris In - 12/01/2019 12:34 PM CDT FINAL REPORT MR, BRAIN, WITHOUT CONTRAST, MR, MRA, NE CK, WITHOUT IV CONTRAST, MR, MRA, BRAIN, WITHOUT CONTRAST INDICATION: Neuro deficit, acute, stroke suspected Ischemic Stroke Evaluation TECHNIQUE: Multiplanar, multisequence MR images of the brain. 3-D time of flight MRA of the cranial and ce rvical circulation. 2-D time of flight MRA of the neck. 3D MIP angiog raphic post-processing was performed. Stenosis evaluation utilized NASCET criteria. COMPARISON: None. FINDINGS: MRI BRAIN: Cerebral parenchyma: Local cerebral atro phy. No diffusion restriction. Midline structures: Normally positioned. Cerebellum and brainstem: Normal. Ventricles: Normal volume. Extra-axial spaces: Unremarkable. Calvarium and skull base: Normal signal. Paranasal sinuses and mastoid air cells: Visible chambers are clear. Orbital contents: No acute abnormality. Additional findings: None. MRA BRAIN: Internal carotid arteries: Patent. Middle cerebral arteries: Patent to dist al branches. Anterior cerebral arteries: Intact. Basilar system: Patent vertebrobasilar s ystem. Posterior cerebral arteries:Patent beyon d the quadrigeminal segments. Additional findings: None. MRA NECK: Common carotid arteries: Unremarkable. Bifurcations: No flow-limiting stenosis. Cervical internal carotid arteries: No f low limiting stenosis. Vertebral arteries: Codominant. No origi n or extracranial stenosis. IMPRESSION: Involutional changes without acute ische jl or parenchymal hemorrhage. No flow limiting stenosis in the major b ranch vessels of the cervical or cranial circulation. Signed: JR Ricco, Arcelia ROSENBAUM Report Verified Date/Time: 12/01/2019 1 2:32:02 Reading Location: [facility] [id number] [facility] Performing Organization Address City/State/Zipcode Phone Number [facility] TSH/Free T4 If Indicated (12/01/2019 5:23 AM CDT) TSH 1.70 0.35 - 4.94 uIU/mL [facility] Specimen Blood Narrative Performed At Foreign Student Adviser Teacher ID - LAURA Duran [facility] Performing Organization Address City/[facility]/Zipcode Phone Number [address] [address] CENTER C-Reactive Protein (12/01/2019 5:23 AM CDT) CRP 0.46 0.00 - 0.50 mg/dL [facility] Specimen Blood Narrative Performed At Foreign Student Adviser Teacher ID - LAURA Duran [facility] Performing Organization Address City/[facility]/Zipcode Phone Number [address] [address] CENTER Hemoglobin A1c (12/01/2019 5:23 AM CDT) Hemoglobin A1C 5.5 4.3 - 6.1 % [facility] Specimen Blood Performing Organization Address [facility] Phone Number [facility] [address] [place], [place] [id number] [place] Lipid panel (12/01/2019 5:23 AM CDT) Triglycerides 74 mg/dL [facility] Cholesterol 151 mg/dL [facility] HDL 49 mg/dL [facility] LDL Calculated 87 mg/dL [facility] Specimen Blood Narrative Performed At Triglyceride Reference Range: [facility] Low Risk <150 [id number] High Risk 200-499 Very High Risk>=500 Cholesterol Reference Range: Low Risk <200 [id number] High Risk>240 HDL Cholesterol Reference Range: Low Risk >=60 High Risk <40 LDL Cholesterol Reference Range: Optimal<100 Near [id number] Very High >=190 Foreign Student Adviser Teacher NUSRAT - LAURA Duran Performing Organization Address City/[facility] Phone Number [facility] [address] [place] [address] [place] after 04/23/2019 Insurance Payer Benefit Plan / Subscriber ID Type Phone Address Group MEDICARE MEDICARE A B xxxxxxxxxxx Medicare BLUE CROSS/BLUE BCBS FED xxxxxxxxx PPO [phone] [address] [place] [address] Advance Directives For more information, please contact:[address] [phone] Code Status Date Activated Date Inactivated Comments Full Code 11/30/2019 11:21 PM 12/02/2019 6:40 PM This code status was determined by: Patient
--- OUTSIDE RECORDS SUMMARY | 2020-04-23 17:02 | XMS REPORT | Continuity of Care Document ---
:1940 Author Organization [facility] t Address [address] [place] [address] Care Team Providers Name Role Phone Daniel Barron MD Primary Care Physician Daniel Barron MD Attending Clinician Jean-Paul ROTHMAN Attending Clinician Fahad ROSENBAUM Attending Clinician Geovany Maya MD Attending Clinician Gage ROSENBAUM Attending Clinician Laura Gonzalez MD Attending Clinician GEOVANY MAYA Attending Clinician Unavailable Lo ROSENBAUM, S. Attending Clinician Segun VELASCO Attending Clinician Unavailable LAURA GONZALEZ Admitting Clinician Unavailable Payers Payer Name Policy Policy Number Effective Expiration Source Type Date Date MEDICAREMEDICARE PART A xxxxxxxxxxx 2006 [place] AND 00:00:00 [place]ai B[place] 2015 [place] PPO/FEDERAL EMPL 00:00:00 Sushma evans PPOxxxxxxxxx2015-Pre sentO MEDICAREMEDICARE A xxxxxxxxxxx DELORES Nava BxxxxxxxxxxxMedicare - [place] [facility] BLUE CROSS/BLUE xxxxxxxxx [facility] - Medical [id number], [place] [address] Problems Condition Condition Condition Status Onset Resolution Last Treating Co mments Source Name Details Category Date Date Treatment Clinician Date Panic Panic Disease Active [facility] attack as attack as 3-16 [facility] - reaction reaction 00:00: Medica l to stress to stress 00 Cent er Obesity Obesity Disease Active [facility] - 00[facility]: Medical 00 [place] Anxiety Anxiety Disease Active [facility] about about 3-15 [facility] - health health 00:00: Medical 00 [place] Aphasia Aphasia Disease Active [facility] 3[facility]14 [facility] - 00:[facility]: Medical 00 [place] Essential Essential Disease Active [facility] hypertensi hypertensi 3-14 Charlee kes - on on 00:00: Medical 00 [place] Hypothyroi Hypothyroi Disease Active C [facility] d d 3-14 [facility] - 00:00: Medical 00 [place] Spinal Spinal Disease Active [place] stenosis stenosis 6-28 Method i of lumbar of lumbar 00:00: st region region 00 SOB SOB Disease Active [place] (shortness (shortness 6-12 Me thodi of breath) of breath) 00:00: st 00 Vaginal Vaginal Disease Active [place] atrophy atrophy 1-26 Methodi 00:00: st 00 Vaginal Vaginal Disease Active [place] vault vault 1-26 Methodi prolapse prolapse 00:00: st 00 Mixed Mixed Disease Active [place] stress and stress and 1-26 Me [facility] urge urge 00:00: st urinary urinary 00 incontinen incontinen ce ce Incomplete Incomplete Disease Active [place] bladder bladder 1-26 Methodi emptying emptying 00:00: st 00 Recurrent Recurrent Disease Active Margo ston UTI UTI 1-26 Methodi 00:00: st 00 Incomplete Incomplete Disease Active [place] defecation defecation 1-26 Me thodi 00:00: st 00 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:00: st syndrome syndrome 00 Osteoarthr Osteoarthr Disease Active [place] itis of itis of 4-19 Methodi lumbar lumbar 00:00: st spine spine 00 Essential Essential Disease Active [facility]on hypertensi hypertensi 3-08 Me thodi on on 00:00: st 00 Depression Depression Disease Active [place] 3-08 Methodi 00:00: st Gastroesop Gastroesop Disease Active [facility] hageal hageal -08 Methodi reflux reflux 00:00: st disease disease 00 with with esophagiti esophagiti s s HLD HLD Disease Active [place] (hyperlipi (hyperlipi -08 Me thodi demia) demia) 00:00: st Acquired Acquired Disease Active [place] hypothyroi hypothyroi -08 Me thodi dism dism 00:00: st 00 Low back Low back Disease Active [place] pain pain 08 Methodi 00:00: st 00 History of Past Illness Condition Condition Condition Status Onset Resolution Last Treating Co mments Source Name Details Category Date Date Treatment Clinician Date Angina Angina Disease Resolve 2019-06-25 2019-06-25 [place] pectoris pectoris d 6-12 00:00:00 15:36:10 Me thodi 00:00: st 00 Allergies, Adverse Reactions, Alerts Allergy Allergy Status Severity Reaction(s) Onset Inactive Treating Comm ents Source Name Type Date Date Clinician Codeine Propensi Active [place] ty to 08 Methodi adverse 00:00: st reaction 00 s to drug Family History Family Member Diagnosis Comments Start Date Stop Date Source Maternal grandfather Cancer [place] Natural mother Alzheimer's [facility] ethodist disease Social History Social Habit Start Date Stop Date Quantity Comments Source History SDOH [facility] Std Drinks Medica Center History SDOH [facility] - Alcohol Binge Medical Jason ter History of tobacco Current smoker [facility] [place] Bahai use Sex Assigned At [facility] ethodist Exposure to Not sure [place] Metho dist SARS-CoV-2 (event) Cigarettes smoked 2020-04-20 2020-04-20 [place] Bahai current (pack per 00:00:00 00:00:00 day) - Reported Cigarette 2020-04-20 2020-04-20 Mol[facility] Method ist pack-years 00:00:00 00:00:00 Alcohol intake 2020-04-20 2020-04-20 Current drinker [place] Bahai 00:00:00 00:00:00 of alcohol (finding) History SDOH 2019-11-30 2019-11-[address] [facility] - Alcohol Frequency 00:00:00 00:00:00 [facility] Center Smoking Status Start Date Stop Date Source Former smoker 2020-04-20 00:00:00 2020-04-20 00:00:00 Jesse Linderist Never smoker [facility] Medications Ordered Filled Start Stop Current Ordering Indication Dosage Frequency Signature Comments Components Source Medication Medication Date Date Medication? Clinician (SIG) Name Name cetirizine Yes 10mg QD Take 10 mg [place] (ZyrTEC) 10 8-03 by mouth Meth fawad MG tablet 14:47: daily. st 34 sulfamethox 2019-0 Yes 1{tbl} Q.5D Take 1 [place] azole-trime 7-31 tablet by Met darshani thoprim 00:00: mouth 2 st (BACTRIM 00 (two) DS) 800-160 times a mg per day. X 10 tablet days mupirocin 2019-0 Yes QD Apply Mol[place] (BACTROBAN) 7- topically Met darshani 2 % 00:00: daily. st ointment 00 losartan-hy 2019-0 Yes TAKE 1 [place] drochloroth 7-20 TABLET BY Met hodi iazide 00:00: MOUTH st (HYZAAR) 00 EVERY DAY 50-12.5 mg per tablet FLUoxetine 2019-0 Yes TAKE 1 [place] (PROzac) 20 6-08 CAPSULE BY Me thodi MG capsule 00:00: MOUTH st 00 EVERY DAY levothyroxi 2019-0 Yes TAKE 1 [place] ne 4-15 TABLET BY Methodi (SYNTHROID) 00:00: MOUTH st 75 mcg 00 EVERY DAY tablet IN THE MORNING atorvastati 2019-0 Yes Pure TAKE 1 [place] (LIPITOR) 4-15 hypercholes TABLET BY Methodi 20 MG 00:00: terolemia MOUTH st tablet 00 EVERY DAY ergocalcife 2019-0 2020- No 13397A Q7D Take [address] rol 3-23 05-12 capsule [facility] - (ERGOCALCIF 00:00: 23:59 (50,000 Me dical PILY) 1,250 00 :00 Units Center mcg (50,000 total) by unit) mouth once capsule a week for 8 doses. folic acid 2020- No 1mg QD Take [address] (FOLVITE) 1 3-17 04-16 tablet (1 Charlee kes - MG tablet 00:00: 23:59 mg total) Nj dical 00 :00 by mouth Center daily for 30 days. losartan-hy 0 Yes high blood 1{tbl} QD Take [address] droCHLOROth 3-14 pressure tablet by Elijah - iazide 22:02: mouth Medical (HYZAAR) 10 daily. Center 100-25 mg per tablet levothyroxi 2019-0 Yes 75ug Take [address] ne 3-14 mcg by [facility] - (SYNTHROID, 22:02: mouth Medic al LEVOTHROID) 10 Every Center 75 MCG morning on tablet an empty stomach. FLUoxetine Yes anxiousness 20mg QD Take [address] (PROZAC) 20 3-14 associated by mouth [facility] - MG tablet 22:02: with daily. Medica l 10 depression Center atorvastati Yes excessive 20mg QD Take [address] n (LIPITOR) 3-14 fat in the by mouth [facility] - 20 MG 22:02: blood daily. Medical tablet 10 Center cetirizine Yes seasonal 10mg QD Take [address] (ZYRTEC) 10 3-14 runny nose by mouth [facility] - MG tablet 22:02: daily. Medica l 10 Center diclofenac 2019-0 Yes Q.25D APPLY [place] (VOLTAREN) 2-15 TOPICALLY Meth fawad 1 % gel 00:00: 4 (FOUR) st 00 TIMES A DAY. APPLY 1-2 GRAMS TO AFFECTED AREA 3-4 TIMES DAILY. ciprofloxac 2020- No 500mg Q.5D Take 1 [place] in (CIPRO) 2-04 02-09 tablet Method i 500 MG 00:00: 23:59 ([address] tablet 00 :00 total) by mouth 2 (two) times a day for 5 days. sulfamethox 2019-0 2020- No 1{tbl} Q.5D Take 1 [place] azole-trime 1-30 02-06 tablet by N[place] thodi thoprim 00:00: 23:[address] (BACTRIM 00 :00 (two) DS) 800-160 times a mg per day for 7 tablet days. diclofenac 2019-0 2020- No Q.25D Apply [place] (VOLTAREN) 10-10 02-15 topically Met hodi 1 % gel 00:00: 00:00 4 (four) st 00 :00 times a day. Apply 1-2 grams to affected area 3-4 times daily. losartan-hy 2018-09- No 1{tbl} QD Take 1 [place] drochloroth 0-08 07-20 tablet by thfawad iazide 00:00: 00:[address] (HYZAAR) 00 :00 daily. 50-12.5 mg per tablet FLUoxetine 2018-09- No 20mg QD Take 1 [place] (PROzac) 20 0-08 06-08 capsule Meth fawad MG capsule 00:00: 00:00 ([address] 00 :00 total) by mouth daily. levothyroxi 2018-09- No 75ug QD Take 1 [facility] ne 0-08 04-15 tablet (75 Methodi (SYNTHROID) 00:00: 00:00 mcg total) st 75 mcg 00 :00 by mouth tablet every morning. atorvastati 2018-09- No Pure 20mg QD Take 1 [facility] n (LIPITOR) 0-08 04-15 hypercholes tablet (20 Methodi 20 MG 00:00: 00:00 terolemia mg total) s t tablet 00 :00 by mouth daily. Default OP ins levothyroxi 2018- No TAKE 1 [place] ne 9-30 10-08 TABLET BY Methodi (SYNTHROID, 00:00: 00:[address] LEVOXYL) 75 00 :00 EVERY mcg tablet MORNING atorvastati 2018- No Pure TAKE 1 [place] n (LIPITOR) 9-30 10-08 hypercholes TABLET BY Methodi 20 MG 00:00: 00:[address] tablet 00 :00 EVERY DAY celecoxib 2018- No 200mg Q.5D TAKE 1 [place] (CeleBREX) 04-07 08-20 CAPSULE Metho di 200 MG 00:00: 23:59 ([address] capsule 00 :00 TOTAL) BY MOUTH 2 (TWO) TIMES A DAY FOR 30 DAYS. FLUoxetine 2018- No TAKE 1 [place] (PROzac) 20 7-08 10-08 CAPSULE BY Roger ethodi MG capsule 00:00: 00:[address] 00 :00 EVERY DAY losartan-hy 2019- No 1{tbl} QD Take 1 [place] drochloroth 6-13 08 tablet by Me rafy morales 00:00: 00:[address] (HYZAAR) 00 :00 daily. 50-12.5 mg per tablet atorvastati 2019- No Pure TAKE 1 [facility] [facility] n (LIPITOR) 10-30 hypercholes TABLET BY Methodfazal 20 MG 00:00: 00:[address] tablet 00 :00 EVERY DAY levothyroxi 2018- No TAKE 1 [facility] [facility] ne 10-30 TABLET BY Methodi (SYNTHROID, 00:00: 00:[address] LEVOXYL) 75 00 :00 EVERY mcg tablet MORNING Immunizations Ordered Immunization Filled Immunization Date Status Commen ts Source Name Name Tdap 2020-04-20 Completed [place] 00:00:00 Bahai FLUZONE HIGH-DOSE PF 2019-06-25 Completed [place] 00:00:00 [facility] FLUZONE HIGH-DOSE PF 2018-08-27 Completed [place] 00:00:00 [place]ai FLUZONE HIGH-DOSE PF 2015-06-10 Completed [place] 00:00:00 [place]ai Pneumococcal 2015-06-03 Completed [place] Conjugate 00:00:00 [place]ai Pneumococcal 2015-06-03 Completed [place] Conjugate 13-Valent 00:00:00 [facility] Zoster 2010-06-09 Completed [place] 00:00:00 [place]ai Pneumococcal 2009-07-21 Completed [place] Polysaccharide 00:00:00 Bahai Tdap 2008-08-18 Completed [place] 00:00:00 Bahai Vital Signs Vital Name Observation Time Observation Value Comments Source Systolic blood 2020-04-20 14:42:00 144 mm[Hg] Tracyto n Bahai pressure Diastolic blood 2020-04-20 14:42:00 84 mm[Hg] Jose Manuel on Bahai pressure Heart rate 2020-04-20 14:42:00 83 /min Jesse Chapman Body height 2020-04-20 14:42:00 162.6 cm Jesse Chapman Body weight 2020-04-20 14:42:00 87.091 kg Jesse Chapman BMI 2020-04-20 14:42:00 32.96 kg/m2 Jesse Chapman Oxygen saturation in 2020-04-20 14:42:00 97 /min Jesse Chapman Arterial blood by Pulse oximetry Body temperature 2019-12-02 15:09:00 35.78 Sanaz [facility] Systolic blood 2019-12-02 11:01:00 188 mm[Hg] [facility] Diastolic blood 2019-12-02 11:01:00 91 mm[Hg] [facility] S [facility] Heart rate 2019-12-02 11:01:00 69 /min [facility] Respiratory rate 2019-12-02 11:01:00 16 /min [facility] Oxygen saturation in 2019-12-02 11:01:00 98 /min [facility] Arterial blood by Medical Ce nter Pulse oximetry Body weight Measured 2019-12-01 10:57:00 88.86 kg [facility] Body temperature 2019-10-17 13:16:00 36.39 Sanaz Tracy Chapman Procedures Procedure Date / Time Performing Clinician Source Performed BASIC METABOLIC PANEL 2020-02-24 08:39:00 Link Barron CBC WITH PLATELET AND 2020-02-24 08:39:00 Link Barron DIFFERENTIAL HEPATIC FUNCTION PANEL 2020-02-24 08:39:00 Link Barron LIPID PANEL 2020-02-24 08:39:00 Link Barron [facility] THYROID STIMULATING 2020-02-24 08:39:00 Link Barron HORMONE URINALYSIS, AUTOMATED 2020-02-24 08:39:00 Link Barron WITH MICROSCOPY REPORT OF PROCEDURE - 2019-12-03 12:20:10 Provider, Default [facility] ENDOSCOPY SCAN [facility] RHYTHM STRIP - SCAN 2019-12-03 12:20:02 Provider, Default [facility] ECHOCARDIOGRAM REPORT - 2019-12-02 21:23:05 Provider, Default [facility] 2D ECHO W/ DOPPLER 2019-12-02 09:59:02 Annette Gonzalez [facility] (CW/PW/COLOR) [facility] VITAMIN D, 25-HYDROXY 2019-12-02 04:10:00 [facility] VITAMIN B12 AND FOLATE 2019-12-02 04:10:00 [facility] CBC W/PLT COUNT & AUTO 2019-12-02 04:10:00 [facility] BASIC METABOLIC PANEL (7) 2019-12-02 04:09:00 Justin [facility] MRA HEAD WITHOUT IV 2019-12-01 12:00:00 Radha, [facility] MRA NECK WITHOUT IV 2019-12-01 12:00:00 Radha, [facility] MR BRAIN WITHOUT IV 2019-12-01 12:00:00 Radha, [facility] BASIC METABOLIC PANEL (7) 2019-12-01 05:23:00 Radha, [facility] C-REACTIVE PROTEIN 2019-12-01 05:23:00 Radha, [facility] HEMOGLOBIN A1C 2019-12-01 05:23:00 Radha, [facility] LIPID PANEL 2019-12-01 05:23:00 Radha, [facility] TSH/FREE T4 IF INDICATED 2019-12-01 05:23:00 Radha, [facility] VITAMIN B12 AND FOLATE 2019-12-01 05:23:00 Radha, [facility] CBC W/PLT COUNT & AUTO 2019-12-01 05:23:00 Rahda, [facility] URINE CULTURE 2019-10-20 00:28:00 Link Barron [facility] XR FOOT 3+ VW RIGHT 2019-10-10 12:57:50 Randolph Blanchard BASIC METABOLIC PANEL 2019-06-20 10:30:00 iLnk Barron CBC WITH PLATELET AND 2019-06-20 10:30:00 Link Barron DIFFERENTIAL URINALYSIS, AUTOMATED 2019-06-20 10:30:00 Link Barron WITH MICROSCOPY THYROID STIMULATING 2019-06-20 10:30:00 Link Barron HORMONE HEPATIC FUNCTION PANEL 2019-06-20 10:30:00 Link Barronu ston Bahai LIPID PANEL 2019-06-20 10:30:00 Link Barron [facility]odist Plan of Care Planned Activity Planned Date Details Comments Source Future Scheduled 2020-05-19 INFLUENZA VACCINE (#1) [facility] 00:00:00 [code = INFLUENZA Medical Ce nter VACCINE (#1)] Future Scheduled 2020-04-18 INFLUENZA VACCINE Tracyto n Bahai Test 00:00:00 [code = INFLUENZA VACCINE] Future Scheduled 2010-08-09 SHINGLES VACCINES (#2) [place] [facility] Test 00:00:00 [code = SHINGLES VACCINES (#2)] Future Scheduled 2007-12-[address] [facility] - Test 00:00:00 WELLNESS (YEAR 2 or Medical Center FIRST YEAR if no IPPE) [code = MEDICARE ANNUAL WELLNESS (YEAR 2 or FIRST YEAR if no IPPE)] Future Scheduled 2007 P[address]OCOCCAL [address] - Test 00:00:00 LOW/MEDIUM RISK (1 of Medica l Center 2 - PCV13) [code = PNEUMOCOCCAL 65+ LOW/MEDIUM RISK (1 of 2 - PCV13)] Encounters Start End Encounter Admission Attending Care Care Encounter Source Date/Time Date/Time Type Type Clinicians Facility Department ID 2020-04-20 2020-04-20 Outpatient [facility] [id number] [place] 00:00:00 00:00:[address] 2020-02-24 2020-02-24 Outpatient [facility] [id number] [place] 00:00:00 00:00:00 LINK [address] 2020-02-24 2020-02-24 Outpatient [facility] [id number] [place] 00:00:00 00:00:00 [facility] [place] [facility] Results Test Description Test Time Test Comments Results Result Comments Source Basic metabolic panel 2020-02-25 10:38:00 Test Item Value Reference Range Interpretation Comme nts Glucose (test code = 108 mg/dL 65-99 H Fasting 2345-7) reference inter callie For someone without known diabetes, a glu cose valuebetween 10 0 and 125 mg/dL is consis tent withprediabetes and should be confi rmed with afollow-up test . BUN (test code = 11 mg/dL 7- 3094-0) Creatinine (test code = 0.77 mg/dL 0.6-0.93 For patients >49 years of 2160-0) age, the refere nce limitfor Creati nine is approximately 1 3% higher for peopleident ified as -Clotilde n. EGFR Non-Afr. [facility] 74 > OR = 60 (test code = 2775) mL/min/1.73m2 EGFR 86 > OR = 60 (test code = 13876-2) mL/min/1.73m2 BUN/creatinine ratio NOT APPLICABLE 6- 22 (calc) (test code = 3097-3) Sodium (test code = 135 mmol/L 906-122 0899-2) Potassium (test code = 4.7 mmol/L 3.5-5.3 2823-3) Chloride (test code = 100 mmol/L 98-110 5-0) CO2 (test code = 30 mmol/L 20-32 8-9) Calcium (test code = 9.6 mg/dL 8.6-10.4 07748-8) RAC (test code = RAC) Performing Organization Information: Site ID: RGA Name: [facility] Address: [address] [place] [address] Director: Arcelia Mata Lab Interpretation Abnormal (test code = 10194-3) [place] MethodistLipid [id number] 10:38:00 Test Item Value Reference Range Interpretation Comments Cholesterol, total 176 mg/dL <200 (test code = 2093-3) HDL cholesterol 53 mg/dL > OR = 50 (test code = 5-9) Triglycerides (test 145 mg/dL <150 code = 2571-8) LDL cholesterol 98 mg/dL (calc) Reference ra nge: calculated (test <100 Desira ble code = 30516-2) range <100 m g/dL for primary prevention; <7 0 mg/dL for patients with C HD or diabetic patients with > or = 2 CHD risk factors. LDL-C is now calculated using the Abram calculation, which is a validated novel method providin g better accuracy than the Friedewald equation in the estimation of LDL-C. Kyaw Medrano S et al. BRANDIE. 2013;310(19): 6908-4667 (http://educati on .Physicians LaboratoriesDiagnVivaSmart .com/faq/CIH667 ) Cholesterol/HDL 3.3 <5.0 (calc) ratio (test code = 9830-1) Non-HDL cholesterol 123 <130 mg/dL For rebecca ents with (test code = (calc) diabetes plus 1 74049-3) major ASCVD ris k factor, treatin g to a non-HDL-C goal of <100 mg/dL (LDL-C of <70 mg/dL) is considered a therapeutic option. RAC (test code = Performing RAC) Organization Information: Site ID: RGA Name: [facility] Lab Address: [address] [place] [id number] Director: Arcelia Mata [place] [facility] center[facility] function [id number] 10:38:00 Test Item Value Reference Range Interpretation Comments Protein (test code = 6.7 g/dL 6.1-8.1 2884-2) Albumin, S (test code 4.2 g/dL 3.6-5.1 = 175-7) Globulin, total (test 2.5 1.9- 3.7 g/dL code = 99726-0) (calc) Albumin/globulin 1.7 1.0- 2.5 (calc) ratio (test code = 175-0) Total bilirubin (test 0.6 mg/dL 0.2-1.2 code = 1974-) Bilirubin direct 0.1 mg/dL < OR = 0.2 (test code = 1967-) Bilirubin, indirect 0.5 0.2- 1.2 mg/dL (test code = 1970-) (calc) Alkaline phosphatase 112 U/L 37-153 (test code = 6768-6) AST (test code = 16 U/L 10-35 1920-8) ALT (test code = 17 U/L 6-29 1742-6) RAC (test code = RAC) Performing Organization Information: Site ID: GEOFF Name: [facility] Address: [address] [place] [phone] Director: Arcelia Molina MethodistThyroid stimulating [id number] 10:38:00 Test Item Value Reference Range Interpretation Comments TSH (test code = 1.34 0.40- 4.50 mIU/L 3016-3) RAC (test code = Performing Organization RAC) Information: Site ID: GEOFF Name: [facility] Address: [address] [place] [phone] Director: Arcelia Ariasridge [place] MethodistCBC with platelet and [id number] 10:38:00 Test Item Value Reference Range Interpretation Comments WBC (test code = 7.5 3.8- 10.8 6690-2) Thousand/uL RBC (test code = 789-8) 3.94 3.80- 5.10 Million/uL HGB (test code = 718-7) 11.8 g/dL 11.7-15.5 HCT (test code = 37.0 % 35-45 4544-3) MCV (test code = 787-2) 93.9 fL 80-100 MCH (test code = 785-6) 29.9 pg 27-33 MCHC (test code = 31.9 g/dL 32-36 L 786-4) RDW (test code = 788-0) 11.9 % 11-15 Platelet count (test 268 140- 400 code = 777-3) Thousand/uL MPV (test code = 776-5) 10.4 fL 7.5-12.5 Neutrophils, absolute 4785 1,500 - 7,800 (test code = 751-8) cells/uL Lymphocytes, absolute 2025 850- 3,900 (test code = 731-0) cells/uL Monocytes, absolute 510 200- 950 cells/uL (test code = 742-7) Eosinophils, absolute 143 15- 500 cells/uL (test code = 711-2) Basophils, absolute 38 0- 200 cells/uL (test code = 704-7) Neutrophils (test code 63.8 % = 770-8) Lymphocytes (test code 27.0 % = 736-9) Monocytes (test code = 6.8 % 5905-5) Eosinophils (test code 1.9 % = 713-8) Basophils + RC (test 0.5 % code = 706-2) RAC (test code = RAC) Performing Organization Information: Site ID: MARYA Name: [facility] Address: [address] [place] [phone] Director: Arcelia Mata Lab Interpretation Abnormal (test code = 90285-5) [place] MethodistUrinalysis, automated with [id number] 10:38:00 Test Item Value Reference Range Interpretation Comments Color, UA (test code = YELLOW YELLOW 5778-6) Appearance (test code CLEAR CLEAR = 5767-9) Specific gravity, 1.012 1.001-1.035 urine (test code = 5811-5) pH, urine (test code = 6.0 5.0-8.0 5803-2) Glucose, urine (test NEGATIVE NEGATIVE code = 16492-4) Bilirubin, UA (test NEGATIVE NEGATIVE code = 5770-3) Ketones, UA (test code NEGATIVE NEGATIVE = 2514-8) Occult blood, urine NEGATIVE NEGATIVE (test code = 5794-3) Protein, UA (test code NEGATIVE NEGATIVE = 05357-1) Nitrite, UA (test code NEGATIVE NEGATIVE = 5802-4) Leukocyte esterase, UA NEGATIVE NEGATIVE (test code = 5799-2) WBC, UA (test code = NONE SEEN < OR = 5 /HPF 5821-4) RBC, UA (test code = NONE SEEN < OR = 2 /HPF 74828-2) Squamous epithelial 0-5 < OR = 5 /HPF cells, UA (test code = 10784-6) Bacteria, UA (test NONE SEEN NONE SEEN /HPF code = 5769-5) Hyaline casts, UA NONE SEEN NONE SEEN /LPF (test code = 5796-8) RAC (test code = RAC) Performing Organization Information: Site ID: RGA Name: [facility] Address: [address] [place] [phone] Director: Arcelia Mata [place] MethodistTransthoracic 2D echo w/ doppler (cw/pw/color)2019-12-02 11:22:22Ejection FractionSLEH ECHO HEARTLAB MKCKESSON CPACSInterface, External Ris In - 12/02/2019 11:22 AM CDTTransthoracic Echocardiography Report (TTE) Demographics Patient Name MAGGIE GARCIA Date of Study 12/02/2019 CEDRICK Gender Female Visit Number [id number] Race Unknown Room Number 2415 Number Date of 1940 Referring Physician ANNETTE GONZALEZ Age 79 year(s) 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 Mild concentric LV hypertrophy. All of the LV segments contract normally . Estimated LVEF by qualitativeassessment is normal (>60%) . Grade 1 diastolic dysfunction (impaired relaxation and low-normal LA pressure). Estimated peak systolic PA pressure is 30-35 mmHg . No pericardial effusion is visualized. Signature Electronically signedby Robbie Coreas MD(Interpreting physician) on 12/02/2019 11:22 AM Findings Left Ventricle The left ventricle is chambersize (by PSLAX dimension) is normal (female - LVIDd 3.8-5.2cm) . Mild concentric LV hypertrophy. All of the LV segments contract normally . Estimated LVEF by qualitative assessment is normal (>60%) . Grade 1 diastolic dysfunction (impaired relaxation and low-normal LA pressure). Left Atrium LA size is normal (16-34 ml/m2) . Right Ventricle The right ventricular chamber size and systolic function are within normal limits. Right Atrium RA size is normal. Aortic Valve Normal AoV structure. Mitral Valve Mild MV leaflet thickening. Trace mitral regurgitation. Tricuspid Valve TV structure is normal. Mild tricuspid regurgitation. Estimated peak systolic PA pressure is 30-35 mmHg . Pulmonic Valve Normal PV structure and function by limited views and Doppler. AortaAortic root size (SInus of Valsalva diameter) is normal . Pericardium No pericardial effusion is visualized. IVC/SVC/PA/PV/Pleural The estimated RA pressure [...] Doppler/Quantitative Measurements LVOT Peak Velocity: 0.8 m/s Peak Gradient: 2.59 mmHg Mean Velocity: 0.49 m/s Mean Gradient: 1.16 mmHg LVOT Diameter: 1.92 cm LVOT VTI: 19.25 cm LVOT Area: 2.9 cm^2 LVOT SV:55.71 mlLVOT CO: 3.34 l/min LVOT CI: 1.74 l/min/m^2CDavid [facility] CenterVitamin B12 and [id number] 07:21:00 Test Item Value Reference Range Interpretation Comments Vitamin B12 (test code = 267 pg/mL 018-790 5021-9) Folate (test code = 7.9 ng/mL >=7.0 2284-8) CHUCK (test code = CHUCK) Traffic Officer ID - FEMI Yanes Lab Interpretation (test Normal code = 71272-7) [facility] [id number] 07:21:00 Test Item Value Reference Range Interpretation Comments VITAMIN B12 (BEAKER) (test code = 267 pg/mL 213-816 774) FOLATE (BEAKER) (test code = 362) 7.9 ng/mL >=7.0 Traffic Officer NUSRAT KAHN FVitamin D, [id number] 05:55:00 Test Item Value Reference Range Interpretation Comments Vitamin D 25-Hydroxy 15.7 ng/mL 6.6-49.9 (test code = 2764) CHUCK (test code = CHUCK) Effective 06/28/2017: Reference Range ChangeNew: 6.6-49.9 ng/mL Previous: 13.0-47.8 ng/mL Recommended Vitamin D Target Range: 30.0-40.0 ng/mLOperator [facility] Lab Interpretation (test Normal code = 44583-9) [facility] D, [id number] 05:55:00 Test Item Value Reference Range Interpretation Comments VITAMIN D 25-OH (BEAKER) (test 15.7 ng/mL 6.6-49.9 code = 2764) Effective 06/28/2017: Reference Range ChangeNew: 6.6-49.9 ng/mL Previous: 13.0-47.8 ng/mLRecommended Vitamin D Target Range: 30.0-40.0 ng/mLOperator ID LAURA MBasic Metabolic [id number] 05:46:00 Test Item Value Reference Range Interpretation Comments Sodium (test code = 137 meq/L 474-206 4462-2) Potassium (test 3.7 meq/L 3.5-5.1 code = 2823-3) Chloride (test code 102 meq/L 98-107 = 2075-0) CO2 (test code = 27 meq/L -29 2027-9) BUN (test code = 8 mg/dL 7-21 3094-0) Creatinine (test 0.81 mg/dL 0.57-1.25 code = 2160-0) Glucose (test code 98 mg/dL 70-105 = 2345-7) Calcium (test code 9.1 mg/dL 8.4-10.2 = 65108-2) EGFR (test code = 69 mL/min/1.73 [place] [address]-2) NOT ACCURATE CREATININE CLEARANCE IN PREDICTING GLOMERULAR FILTRATION RATE . ESTIMATED GFR I S NOT APPLICABLE FOR DIALYSIS PATIEN TS. CHUCK (test code = Traffic Officer ID - CHUCK) LAURA Dur[facility] METABOLIC [id number] 05:46:00 Test Item Value Reference Range Interpretation Comments SODIUM (BEAKER) 137 meq/L 136-145 (test code = 381) POTASSIUM (BEAKER) 3.7 meq/L 3.5-5.1 (test code = 379) CHLORIDE (BEAKER) 102 meq/L 98-107 (test code = 382) CO2 (BEAKER) (test 27 meq/L 22-29 code = 355) BLOOD UREA NITROGEN 8 mg/dL 7-21 (BEAKER) (test code = 354) CREATININE (BEAKER) 0.81 mg/dL 0.57-1.25 (test code = 358) GLUCOSE RANDOM 98 mg/dL 70-105 (BEAKER) (test code = 652) CALCIUM (BEAKER) 9.1 mg/dL 8.4-10.2 (test code = 697) EGFR (BEAKER) (test 69 mL/min/1.73 ESTIMA ZOHRA GFR IS code = 1092) sq m NOT ACCURATE CREATININE CLEARANCE IN PREDICTING GLOMERULAR FILTRATION RATE . ESTIMATED GFR I S NOT APPLICABLE FOR DIALYSIS PATIEN TS. Traffic Officer ID - LAURA MCBC with platelet count + automated [id number] 05:22:00 Test Item Value Reference Range Interpretation Comments WBC (test code = 6690-2) 6.2 3.5- 10.5 K/L RBC (test code = 789-8) 3.88 3.93- 5.22 M/L L MCHC (test code = 786-4) 31.3 32.2- 35.5 GM/DL L Hematocrit (test code = 4544-3) 37.4 % 34.1-44.9 MCV (test code = 787-2) 96.4 fL 79.4-94.8 H MCH (test code = 785-6) 30.2 pg 25.6-32.2 RDW (test code = 788-0) 13.2 % 11.7-14.4 Platelets (test code = 777-3) 198 150- 450 K/CU MM MPV (test code = 42530-8) 10.4 fL 9.4-12.3 nRBC (test code = 413) 0 0- 0 /100 WBC % Neutros (test code = 429) 49 % % Lymphs (test code = 430) 39 % % Monos (test code = 431) 8 % % Eos (test code = 432) 3 % % Baso (test code = 437) 1 % # Neutros (test code = 670) 3.04 1.56- 6.13 K/L # Lymphs (test code = 414) 2.43 1.18- 3.74 K/L # Monos (test code = 415) 0.49 0.24- 0.36 K/L H # Eos (test code = 416) 0.19 0.04- 0.36 K/L # Baso (test code = 417) 0.05 0.01- 0.08 K/L Immature Granulocytes-Relative 1 % 0-1 (test code = 2801) Lab Interpretation (test code = Abnormal 33125-4) [facility] W/PLT COUNT & AUTO [id number] 05:22:00 Test Item Value Reference Range Interpretation Comments WHITE BLOOD CELL COUNT (BEAKER) 6.2 K/ L 3.5-10.5 (test code = 775) RED BLOOD CELL COUNT (BEAKER) 3.88 M/ L 3.93-5.22 L (test code = 761) HEMOGLOBIN (BEAKER) (test code = 11.7 GM/DL 11.2-15.7 410) HEMATOCRIT (BEAKER) (test code = 37.4 % 34.1-44.9 411) MEAN CORPUSCULAR VOLUME (BEAKER) 96.4 fL 79.4-94.8 H (test code = 753) MEAN CORPUSCULAR HEMOGLOBIN 30.2 pg 25.6-32.2 (BEAKER) (test code = 751) MEAN CORPUSCULAR HEMOGLOBIN CONC 31.3 GM/DL 32.2-35.5 L (BEAKER) (test code = 752) RED CELL DISTRIBUTION WIDTH 13.2 % 11.7-14.4 (BEAKER) (test code = 412) PLATELET COUNT (BEAKER) (test 198 K/CU MM 150-450 code = 756) MEAN PLATELET VOLUME (BEAKER) 10.4 fL 9.4-12.3 (test code = 754) NUCLEATED RED BLOOD CELLS 0 /100 WBC 0-0 (BEAKER) (test code = 413) NEUTROPHILS RELATIVE PERCENT 49 % (BEAKER) (test code = 429) LYMPHOCYTES RELATIVE PERCENT 39 % (BEAKER) (test code = 430) MONOCYTES RELATIVE PERCENT 8 % (BEAKER) (test code = 431) EOSINOPHILS RELATIVE PERCENT 3 % (BEAKER) (test code = 432) BASOPHILS RELATIVE PERCENT 1 % (BEAKER) (test code = 437) NEUTROPHILS ABSOLUTE COUNT 3.04 K/ L 1.56-6.13 (BEAKER) (test code = 670) LYMPHOCYTES ABSOLUTE COUNT 2.43 K/ L 1.18-3.74 (BEAKER) (test code = 414) MONOCYTES ABSOLUTE COUNT (BEAKER) 0.49 K/ L 0.24-0.36 H (test code = 415) EOSINOPHILS ABSOLUTE COUNT 0.19 K/ L 0.04-0.36 (BEAKER) (test code = 416) BASOPHILS ABSOLUTE COUNT (BEAKER) 0.05 K/ L 0.01-0.08 (test code = 417) IMMATURE GRANULOCYTES-RELATIVE 1 % 0-1 PERCENT (BEAKER) (test code = 2801) MR, MRA, BRAIN, WITHOUT [id number] 12:32:00Reason for exam:->Ischemic Stroke EvaluationFINAL REPORT MR, BRAIN, WITHOUT CONTRAST, MR, MRA, NECK, WITHOUT IV CONTRAST,MR, MRA, BRAIN, WITHOUT CONTRAST INDICATION: Neuro deficit, acute, stroke suspectedIschemic Stroke Evaluation TECHNIQUE: Multiplanar, multisequence MR images of the brain. 3-D time of flight MRA of the cranial and cervical circulation. 2-D time of flight MRA of the neck. 3D MIP angiographic post-processing was performed. Stenosis evaluation utilized NASCET criteria. COMPARISON: None. FINDINGS: MRI BRAIN: Cerebral parenchyma: Local cerebral atrophy. No diffusion restriction.Midline structures: Normally positioned.Cerebellum and brainstem: Normal.Ventricles: Normal volume.Extra-axial spaces: Unremarkable. Calvarium and skull base: Normal signal.Paranasal sinuses and mastoid air cells: Visible chambers are clear.Orbital contents: No acute abnormality. Additional findings: None. MRA BRAIN:Internal carotid arteries: Patent. Middle cerebral arteries: Patent to distal branches.Anterior cerebral arteries: Intact.Basilar system: Patent vertebrobasilar system.Posterior cerebral arteries:Patent beyond the quadrigeminal segments.Additional findings: None. MRA NECK:Common carotid arteries: Unremarkable. Bifurcations: No flow-limiting stenosis. Cervical internal carotid arteries: No flow limiting stenosis.Vertebral arteries: Codominant. No origin or extracranial stenosis. IMPRESSION: Involutional change s without acute ischemia or parenchymal hemorrhage. No flow limiting stenosis in the major branch vessels of the cervical or cranial circulation. Signed: JR Chacko Robert MDReport Verified Date/Time: 12/01/2019 12:32:02 Reading Location: [address] Neuro Reading Room MR, MRA, NECK, WITHOUT IV CONTRAST 2019-12-01 12:32:00Reason for exam:->Ischemic Stroke EvaluationFINAL REPORT MR, BRAIN, WITHOUT CONTRAST, MR, MRA, NECK, WITHOUT IV CONTRAST,MR, MRA, BRAIN, WITHOUT CONTRAST INDICATION: Neuro deficit, acute, stroke suspectedIschemic Stroke Evaluation TECHNIQUE: Multiplanar, multisequence MR images of the brain. 3-D time of flight MRA of the cranial and cervical circulation. 2-D time of flight MRA of the neck. 3D MIP angiographic post-proce ssing was performed. Stenosis evaluation utilized NASCET criteria. COMPARISON: None. FINDINGS: MRI BRAIN: Cerebral parenchyma: Local cerebral atrophy. No diffusion restriction.Midline structures: Normally positioned.Cerebellum and brainstem: Normal.Ventricles: Normal volume.Extra-axial spaces: Unremarkable. Calvarium and skull base: Normal signal.Paranasal sinuses and mastoid air cells: Visible chambers are clear.Orbital contents: No acute abnormality. Additional findings: None. MRA BRAIN:Internal carotid arteries: Patent. Middle cerebral arteries: Patent to distal branches.Anterior cerebral arteries: Intact.Basilar system: Patent vertebrobasilar system.Posterior cerebral arteries:Patent beyond the quadrigeminal segments.Additional findings: None. MRA NECK:Common carotid arteries: Unremarkable. Bifurcations: No flow-limiting stenosis. Cervical internal carotid arteries: No flow limiting stenosis.Vertebral arteries: Codominant. No origin or extracranial stenosis. IMPRESSION: Involutional change s without acute ischemia or parenchymal hemorrhage. No flow limiting stenosis in the major branch vessels of the cervical or cranial circulation. Signed: JR Chacko Robert MDReport Verified Date/Time: 12/01/2019 12:32:02 Reading Location: [address] Neuro Reading Room MR, BRAIN, WITHOUT CONTRAST 2019-12-01 12:32:00Reason for exam:->Ischemic Stroke EvaluationFINAL REPORT MR, BRAIN, WITHOUT CONTRAST, MR, MRA, NECK, WITHOUT IV CONTRAST,MR, MRA, BRAIN, WITHOUT CONTRAST INDICATION: Neuro deficit, acute, stroke suspectedIschemic Stroke Evaluation TECHNIQUE: Multiplanar, multisequence MR images of the brain. 3-D time of flight MRA of the cranial and cervical circulation. 2-D time of flight MRA of the neck. 3D MIP angiographic post-proce ssing was performed. Stenosis evaluation utilized NASCET criteria. COMPARISON: None. FINDINGS: MRI BRAIN: Cerebral parenchyma: Local cerebral atrophy. No diffusion restriction.Midline structures: Normally positioned.Cerebellum and brainstem: Normal.Ventricles: Normal volume.Extra-axial spaces: Unremarkable. Calvarium and skull base: Normal signal.Paranasal sinuses and mastoid air cells: Visible chambers are clear.Orbital contents: No acute abnormality. Additional findings: None. MRA BRAIN:Internal carotid arteries: Patent. Middle cerebral arteries: Patent to distal branches.Anterior cerebral arteries: Intact.Basilar system: Patent vertebrobasilar system.Posterior cerebral arteries:Patent beyond the quadrigeminal segments.Additional findings: None. MRA NECK:Common carotid arteries: Unremarkable. Bifurcations: No flow-limiting stenosis. Cervical internal carotid arteries: No flow limiting stenosis.Vertebral arteries: Codominant. No origin or extracranial stenosis. IMPRESSION: Involutional change s without acute ischemia or parenchymal hemorrhage. No flow limiting stenosis in the major branch vessels of the cervical or cranial circulation. Signed: JR Chacko Robert MDReport Verified Date/Time: 12/01/2019 12:32:02 Reading Location: [address] Neuro Reading Room MRA head without IV contrast 2019-12-01 12:32:00Interface, External Ris In - 12/01/2019 12:34 PM CDTFINAL REPORT MR, BRAIN, WITHOUT CONTRAST, MR, MRA, NECK, WITHOUT IV CONTRAST, MR, MRA, BRAIN, WITHOUT CONTRAST INDICATION: Neuro deficit, acute, stroke suspectedIschemic Stroke Evaluation TECHNIQUE: Multiplanar, multisequence MR images of the brain. 3-D time of flight MRA of the cranial and cervical circulation. 2-D time of flight MRA of the neck. 3D MIP angiographic post-processing was performed. Stenosis evaluation utilized NASCET criteria. COMPARISON: None. FINDINGS: MRI BRAIN: Cerebral parenchyma: Local cerebral atrophy. No diffusion restriction.Midline structures: Normally positioned.Cerebellum and brainstem: Normal.Ventricles: Normal volume.Extra- axial spaces: Unremarkable. Calvarium and skull base: Normal signal.Paranasal sinuses and mastoid air cells: Visible chambers are clear.Orbital contents: No acute abnormality. Additional findings: None. MRA BRAIN:Internal carotid arteries: Patent. Middle cerebral arteries: Patent to distal branches.Anterior cerebral arteries: Intact.Basilar system: Patent vertebrobasilar system.Posterior cerebral arteries:Patent beyond the quadrigeminal segments.Additional findings: None. MRA NECK:Common carotid arteries: Unremarkable. Bifurcations: No flow-limiting stenosis. Cervicalinternal carotid arteries: No flow limiting stenosis.Vertebral arteries: Codominant. No origin or extracranial stenosis. IMPRESSION: Involutional changes without acute ischemia or parenchymal hemorrhage. No flow limiting stenosis in the major branch vessels of the cervical or cranial circulation. Signed: JR Chacko Robert MDReport Verified Date/Time: 12/01/2019 12:32:02 Reading Location: [facility] 2019-12-01 12:32:00Interface, External Ris In - 12/01/2019 12:34 PM CDTFINAL REPORT MR, BRAIN, WITHOUT CONTRAST, MR, MRA, NECK, WITHOUT IV CONTRAST, MR, MRA, BRAIN, WITHOUT CONTRAST INDICATION: Neuro deficit, acute, stroke suspectedIschemic Stroke Evaluation TECHNIQUE: Multiplanar, multisequence MR images of the brain. 3-D time of flight MRA of the cranial and cervical circulation. 2-D time of flight MRA of the neck. 3D MIP angiographic post-processing was performed. Stenosis evaluation utilized NASCET criteria. COMPARISON: None. FINDINGS: MRI BRAIN: Cerebral parenchyma: Local cerebral atrophy. No diffusion restriction.Midline structures: Normally positioned.Cerebellum and brainstem: Normal.Ventricles: Normal volume.Extra- axial spaces: Unremarkable. Calvarium and skull base: Normal signal.Paranasal sinuses and mastoid air cells: Visible chambers are clear.Orbital contents: No acute abnormality. Additional findings: None. MRA BRAIN:Internal carotid arteries: Patent. Middle cerebral arteries: Patent to distal branches.Anterior cerebral arteries: Intact.Basilar system: Patent vertebrobasilar system.Posterior cerebral arteries:Patent beyond the quadrigeminal segments.Additional findings: None. MRA NECK:Common carotid arteries: Unremarkable. Bifurcations: No flow-limiting stenosis. Cervicalinternal carotid arteries: No flow limiting stenosis.Vertebral arteries: Codominant. No origin or extracranial stenosis. IMPRESSION: Involutional changes without acute ischemia or parenchymal hemorrhage. No flow limiting stenosis in the major branch vessels of the cervical or cranial circulation. Signed: JR Chacko Robert MDReport Verified Date/Time: 12/01/2019 12:32:02 Reading Location: [address] Neuro Reading [facility] contrast 2019-12-01 12:32:00Interface, External Ris In - 12/01/2019 12:34 PM CDTFINAL REPORT MR, BRAIN, WITHOUT CONTRAST, MR, MRA, NECK, WITHOUT IV CONTRAST, MR, MRA, BRAIN, WITHOUT CONTRAST INDICATION: Neuro deficit, acute, stroke suspectedIschemic Stroke Evaluation TECHNIQUE: Multiplanar, multisequence MR images of the brain. 3-D time of flight MRA of the cranial and cervical circulation. 2-D time of flight MRA of the neck. 3D MIP angiographic post-processing was performed. Stenosis evaluation utilized NASCET criteria. COMPARISON: None. FINDINGS: MRI BRAIN: Cerebral parenchyma: Local cerebral atrophy. No diffusion restriction.Midline structures: Normally positioned.Cerebellum and brainstem: Normal.Ventricles: Normal volume.Extra- axial spaces: Unremarkable. Calvarium and skull base: Normal signal.Paranasal sinuses and mastoid air cells: Visible chambers are clear.Orbital contents: No acute abnormality. Additional findings: None. MRA BRAIN:Internal carotid arteries: Patent. Middle cerebral arteries: Patent to distal branches.Anterior cerebral arteries: Intact.Basilar system: Patent vertebrobasilar system.Posterior cerebral arteries:Patent beyond the quadrigeminal segments.Additional findings: None. MRA NECK:Common carotid arteries: Unremarkable. Bifurcations: No flow-limiting stenosis. Cervicalinternal carotid arteries: No flow limiting stenosis.Vertebral arteries: Codominant. No origin or extracranial stenosis. IMPRESSION: Involutional changes without acute ischemia or parenchymal hemorrhage. No flow limiting stenosis in the major branch vessels of the cervical or cranial circulation. Signed: JR Chacko Robert MDReport Verified Date/Time: 12/01/2019 12:32:02 Reading Location: [address] Neuro Reading Room [facility] HospitalHem[facility] [id number] 09:39:00 Test Item Value Reference Range Interpretation Comments Hemoglobin A1C (test code = 4548-4) 5.5 % 4.3-6.1 Lab Interpretation (test code = Normal 59181-2) [facility] [id number] 09:39:00 Test Item Value Reference Range Interpretation Comments HEMOGLOBIN A1C (BEAKER) (test code = 5.5 % 4.3-6.1 368) TSH/Free T4 If [id number] 06:57:00 Test Item Value Reference Range Interpretation Comments TSH (test code = 56154-2) 1.70 0.35- 4.94 uIU/mL CHUCK (test code = CHUCK) Traffic Officer ID - LAURA M Lab Interpretation (test Normal code = 15281-2) [facility] HospitalTSH/FREE T4 IF [id number] 06:57:00 Test Item Value Reference Range Interpretation Comments THYROID STIMULATING HORMONE 1.70 uIU/mL 0.35-4.94 (BEAKER) (test code = 772) Traffic Officer ID - LAURA MVITAMIN B12 AND [id number] 06:57:00 Test Item Value Reference Range Interpretation Comments VITAMIN B12 (BEAKER) (test code = 228 pg/mL 213-816 774) FOLATE (BEAKER) (test code = 362) 10.9 ng/mL >=7.0 Traffic Officer NUSRAT - LAURA [facility]BC W/PLT COUNT & AUTO [id number] 06:53:00 Test Item Value Reference Range Interpretation Comments WHITE BLOOD CELL COUNT (BEAKER) 5.4 K/ L 3.5-10.5 (test code = 775) RED BLOOD CELL COUNT (BEAKER) 3.52 M/ L 3.93-5.22 L (test code = 761) HEMOGLOBIN (BEAKER) (test code = 10.8 GM/DL 11.2-15.7 L 410) HEMATOCRIT (BEAKER) (test code = 34.4 % 34.1-44.9 411) MEAN CORPUSCULAR VOLUME (BEAKER) 97.7 fL 79.4-94.8 H (test code = 753) MEAN CORPUSCULAR HEMOGLOBIN 30.7 pg 25.6-32.2 (BEAKER) (test code = 751) MEAN CORPUSCULAR HEMOGLOBIN CONC 31.4 GM/DL 32.2-35.5 L (BEAKER) (test code = 752) RED CELL DISTRIBUTION WIDTH 13.2 % 11.7-14.4 (BEAKER) (test code = 412) PLATELET COUNT (BEAKER) (test 197 K/CU MM 150-450 code = 756) MEAN PLATELET VOLUME (BEAKER) 10.1 fL 9.4-12.3 (test code = 754) NUCLEATED RED BLOOD CELLS 0 /100 WBC 0-0 (BEAKER) (test code = 413) NEUTROPHILS RELATIVE PERCENT 50 % (BEAKER) (test code = 429) LYMPHOCYTES RELATIVE PERCENT 38 % (BEAKER) (test code = 430) MONOCYTES RELATIVE PERCENT 9 % (BEAKER) (test code = 431) EOSINOPHILS RELATIVE PERCENT 2 % (BEAKER) (test code = 432) BASOPHILS RELATIVE PERCENT 1 % (BEAKER) (test code = 437) NEUTROPHILS ABSOLUTE COUNT 2.71 K/ L 1.56-6.13 (BEAKER) (test code = 670) LYMPHOCYTES ABSOLUTE COUNT 2.03 K/ L 1.18-3.74 (BEAKER) (test code = 414) MONOCYTES ABSOLUTE COUNT (BEAKER) 0.48 K/ L 0.24-0.36 H (test code = 415) EOSINOPHILS ABSOLUTE COUNT 0.12 K/ L 0.04-0.36 (BEAKER) (test code = 416) BASOPHILS ABSOLUTE COUNT (BEAKER) 0.05 K/ L 0.01-0.08 (test code = 417) IMMATURE GRANULOCYTES-RELATIVE 1 % 0-1 PERCENT (BEAKER) (test code = 2801) Lipid [id number] 06:36:00 Test Item Value Reference Range Interpretation Comments Triglycerides (test 74 mg/dL code = 2571-8) Cholesterol (test code 151 mg/dL = 2093-3) HDL (test code = 49 mg/dL 2085-9) LDL Calculated (test 87 mg/dL code = 60894-5) CHUCK (test code = CHUCK) Triglyceride Reference Range: Low Risk <150 Borderline 150-199 High Risk 200-499 Very High Risk >=500 Cholesterol Reference Range: Low Risk <200 Borderline 200-239 High Risk >240 HDL Cholesterol Reference Range: Low Risk >=60 High Risk <40 LDL Cholesterol Reference Range: Optimal <100 Near Optimal 100-129 Borderline 130-159 High 160-189 Very High >=190 Traffic Officer NUSRAT Pham LAURA Roger [facility] HospitalC-Reactive [id number] 06:36:00 Test Item Value Reference Range Interpretation Comments CRP (test code = 676) 0.46 mg/dL 0-0.5 CHUCK (test code = CHUCK) Traffic Officer NUSRAT Duran Lab Interpretation (test Normal code = 24564-7) [facility] HospitalLIPID [id number] 06:36:00 Test Item Value Reference Range Interpretation Comments TRIGLYCERIDES (BEAKER) (test code = 74 mg/dL 540) CHOLESTEROL (BEAKER) (test code = 151 mg/dL 631) HDL CHOLESTEROL (BEAKER) (test code 49 mg/dL = 976) LDL CHOLESTEROL CALCULATED (BEAKER) 87 mg/dL (test code = 633) Triglyceride Reference Range: Low Risk <150 Borderline 150-199 High Risk 200-499 Very High Risk >=500Cholesterol Reference Range: Low Risk <200 Borderline 200-239 High Risk >240HDL Cholesterol Reference Range: Low Risk >=60 High Risk <40LDL Cholesterol Reference Range: Optimal <100 Near Optimal 100-129 Borderline 130-159 High 160-189 Very High >=190 Traffic Officer ID - LAURA MBASIC METABOLIC [id number] 06:36:00 Test Item Value Reference Range Interpretation Comments SODIUM (BEAKER) 137 meq/L 136-145 (test code = 381) POTASSIUM (BEAKER) 3.6 meq/L 3.5-5.1 (test code = 379) CHLORIDE (BEAKER) 104 meq/L 98-107 (test code = 382) CO2 (BEAKER) (test 24 meq/L 22-29 code = 355) BLOOD UREA NITROGEN 8 mg/dL 7-21 (BEAKER) (test code = 354) CREATININE (BEAKER) 0.77 mg/dL 0.57-1.25 (test code = 358) GLUCOSE RANDOM 95 mg/dL 70-105 (BEAKER) (test code = 652) CALCIUM (BEAKER) 8.8 mg/dL 8.4-10.2 (test code = 697) EGFR (BEAKER) (test 73 mL/min/1.73 ESTIMA ZOHRA GFR IS code = 1092) sq m NOT ACCURATE CREATININE CLEARANCE IN PREDICTING GLOMERULAR FILTRATION RATE . ESTIMATED GFR I S NOT APPLICABLE FOR DIALYSIS PATIEN TS. Traffic Officer ID - LAURA MC-REACTIVE [id number] 06:36:00 Test Item Value Reference Range Interpretation Comments C-REACTIVE PROTEIN (BEAKER) (test 0.46 mg/dL 0.00-0.50 code = 676) Traffic Officer ID - LAURA MUrine [id number] 00:28:00 Test Item Value Reference Interpretation Comments Range Urine culture (test SEE NOTE A CULTUR E, URINE, code = 630-4) ROUTINE [facility] Number: [id number] Test Status: F inal Specimen Sourc e: URINE Specimen Quality: Adequ ate Result: 50,000-100,000 CFU/mL of Enterococcus faecalis COMME NT: Additi onal organism(s) les s than 10,000 CFU /mL isolated. These organisms, comm only found on data librarian al and internal genitalia, are considered colonizers. No further testing performed. E.faecalis - INT DAHLIA AMPICILLIN S <=2 CIPROFLOXACIN S 1 LEVOFLOXACIN S 2 NITROFURANTOIN S <=16 TETRACYCLINE R >=16 VANCOMYCIN S 1S=Susceptible I=Intermediate R=Resistant * = Not TestedNR = Not Reported NN = See Therapy CommentsNO COLLECTION DATE RECEIVED. WE BELLA VE USEDTHE DATE E SPECIMEN WAS RECEIVED BY THISLABORATORY THE COLLECTION DATE. IF THISIS INCORRECT, ADRIANO DYE CONTACT CLIENT SERVICES.PHONE NUMBER: [phone] CHUCK (test code = FASTING: UNKNOWN CHUCK) RAC (test code = Performing RAC) Organization Information: Site ID: [facility] Name: [facility] Address: [address] [place] [id number] Director: Arcelia Mata Lab Interpretation Abnormal (test code = 67653-1) Jesse Chapman
[2020-04-23] MEDS ORDERED: FENTANYL CITR 100 MCG/2 ML ONE (17:50)
[2020-04-23] MEDS ORDERED: ONDANSETRON 4 MG/2 ML VIAL ONE (17:50)
[2020-04-23] MEDS ORDERED: NA CHLORIDE 0.9% 1,000 ML ONE (17:58)
[2020-04-23 17:59] LABS: Absolute Lymphocytes (CBC) 0.8 K/uL (0.7-4.9); Basophils % 0.2 % (0-1.3); Hematocrit 36.3 % (36.0-45.0); Lymphocytes % 5.3 % (15.3-44.8); MPV 8.2 fL (7.6-11.3); RBC Red Blood Cell Count 4.06 M/uL (3.86-4.86)
[2020-04-23 18:01] LABS: Albumin 3.4 g/dL (3.4-5.0); Bilirubin Direct 0.3 mg/dL (0-0.2); Bilirubin Total 0.7 mg/dL (0.2-1.0); Potassium 3.9 mmol/L (3.5-5.1); Protein, Total 7.7 g/dL (6.4-8.2)
--- NOTE | 2020-04-23 18:26 | RAD REPORT ---
EXAM DESCRIPTION: CT - Abdomen Pelvis Wo Contrast - 04/23/2020 6:09 pm CLINICAL HISTORY: Abdominal pain. ABD PAIN COMPARISON: CT-STONE PROTOCOL dated 01/30/2008 TECHNIQUE: CT imaging of the abdomen and pelvis was performed without contrast. Solid organ, bowel a nd vascular assessment is limited due to lack of IV and oral contrast. All CT scans are performed using dose optimization technique as appropriate and may include automated exposure control or mA/KV adjustment according to patient size. FINDINGS: The lower lung mccoy are clear.Cholecystectomy clips The liver, spleen, pancreas, adrenal glands and kidneys are within normal limits for a limited non-co ntrast examination.17 mm right inferior parapelvic cyst. No bowel obstruction, free air, free fluid or abscess. Prominent diverticulosis coli is present witho ut diverticulitis. The appendix is normal. The osseous structures are within normal limits. IMPRESSION: Prominent colonic diverticulosis is present without diverticulitis. A limited non-contrast examination was performed as detailed.
--- NOTE | 2020-04-23 20:10 | EDPHYS ---
Physician Documentation [facility] Name: Yolande Hurtado Age: 80 yrs Sex: Female : 1940 Arrival Date: 04/23/2020 Time: 17:08 Bed 16 Private MD: ED Physician Joaquin Levy HPI: 04/23 20:17 This 80 yrs old Female presents to ER via Ambulatory with complaints of kb Nausea, Abdominal Pain. 20:18 The patient presents with abdominal pain that is diffuse. Onset: The symptoms/episode kb began/occurred 6 day(s) ago. The symptoms do not radiate. Associated signs and symptoms: Pertinent positives: nausea and vomiting. The symptoms are described as constant. Modifying factors: The symptoms are alleviated by nothing, the symptoms are aggravated by nothing. Severity of pain: At its worst the pain was moderate in the emergency department the pain is unchanged. The patient has not experienced similar symptoms in the past. The patient has not recently seen a physician. Pt reports she ate some greek food on Monday and about 5 hours later started to have abd pain, nausea and vomiting. States the nausea and vomiting has gotten better, but the pain is constant. Historical: - Allergies: 17:20 Codeine; ll1 - Home Meds: 19:23 atorvastatin 20 mg Oral tab once daily [Active]; cetirizine 10 mg Oral tab 1 tab once lp1 daily [Active]; fluoxetine 20 mg Oral tab once daily [Active]; levothyroxine 75 mcg tab 1 tab once daily [Active]; losartan-hydrochlorothiazide 100-25 mg Oral tab once daily [Active]; omeprazole 40 mg Oral cpDR once daily [Active]; sulfamethoxazole-trimethoprim Oral twice a day [Active]; - PMHx: 17:20 Hypertension; Hypothyroidism; Anxiety; reflux; ll1 - PSHx: 17:20 Cholecystectomy; partial hysterectomy; back sx; ll1 - Immunization history:: Flu vaccine is up to date. - Social history:: Smoking status: Patient denies any tobacco usage or history of. Patient uses alcohol, wine in the evening. Patient/guardian denies using street drugs. ROS: 20:16 Constitutional: Negative for fever, chills, and weight loss, Cardiovascular: Negative kb for chest pain, palpitations, and edema, Respiratory: Negative for shortness of breath, cough, wheezing, and pleuritic chest pain, Back: Negative for injury and pain, MS/Extremity: Negative for injury and deformity, Skin: Negative for injury, rash, and discoloration, Neuro: Negative for headache, weakness, numbness, tingling, and seizure. 20:16 Abdomen/GI: Positive for abdominal pain, nausea and vomiting. Exam: 20:17 Constitutional: This is a well developed, well nourished patient who is awake, alert, kb and in no acute distress. Head/Face: Normocephalic, atraumatic. Chest/axilla: Normal chest wall appearance and motion. Nontender with no deformity. No lesions are appreciated. Cardiovascular: Regular rate and rhythm with a normal S1 and S2. No gallops, murmurs, or rubs. Normal PMI, no JVD. No pulse deficits. Respiratory: Lungs have equal breath sounds bilaterally, clear to auscultation and percussion. No rales, rhonchi or wheezes noted. No increased work of breathing, no retractions or nasal flaring. Skin: Warm, dry with normal turgor. Normal color with no rashes, no lesions, and no evidence of cellulitis. MS/ Extremity: Pulses equal, no cyanosis. Neurovascular intact. Full, normal range of motion. Neuro: Awake and alert, GCS 15, oriented to person, place, time, and situation. Cranial nerves II-XII grossly intact. Motor strength 5/5 in all extremities. Sensory grossly intact. Cerebellar exam normal. Normal gait. 20:17 Abdomen/GI: Inspection: abdomen appears normal, Bowel sounds: normal, in all quadrants, Palpation: soft, in all quadrants, mild abdominal tenderness, in the right upper quadrant, left upper quadrant and right lower quadrant, moderate abdominal tenderness, in the left lower quadrant. Vital Signs: 17:21 BP 147 / 56; Pulse 112; Resp 22; Temp 98.7; Pulse Ox 99% ; Weight 87.09 kg; Height 5 ll1 ft. 4 in. (162.56 cm); Pain 10/10; 18:23 Pain 5/10; tw2 18:31 BP 132 / 75; Pulse 96; Resp 17; Pulse Ox 95% on R/A; Pain 5/10; tw2 19:22 BP 124 / 71; Pulse 88; Resp 18; Temp 98.6(O); Pulse Ox 100% on R/A; lp1 17:21 Body Mass Index 32.96 (87.09 kg, 162.56 cm) ll1 MDM: 17:26 Patient medically screened. kb 20:15 Data reviewed: vital signs, nurses notes. Data interpreted: Pulse oximetry: on room air kb is 100 %. Interpretation: normal. Counseling: I had a detailed discussion with the patient and/or guardian regarding: the historical points, exam findings, and any diagnostic results supporting the discharge/admit diagnosis, lab results, radiology results, the need for outpatient follow up, a family practitioner, to return to the emergency department if symptoms worsen or persist or if there are any questions or concerns that arise at home. 04/23 17:27 Order name: Basic Metabolic Panel kb 04/23 17:27 Order name: CBC with Diff kb 04/23 17:27 Order name: Hepatic Function kb 04/23 17:27 Order name: Lipase kb 04/23 18:01 Order name: Basic Metabolic Panel; Complete Time: 18:01 EDMS 04/23 18:01 Order name: Liver (Hepatic) Function; Complete Time: 18:01 EDMS 04/23 17:40 Order name: CT Abd/Pelvis - IV Contrast Only kb 04/23 18:01 Order name: Lipase; Complete Time: 18:01 EDMS 04/23 18:07 Order name: CBC with Automated Diff; Complete Time: 18:08 EDMS 04/23 18:16 Order name: CREATININE WHOLE BLOOD; Complete Time: 18:16 EDMS 04/23 18:27 Order name: CT; Complete Time: 18:33 EDMS 04/23 17:27 Order name: IV Saline Lock; Complete Time: 17:47 kb 04/23 17:27 Order name: Labs collected and sent; Complete Time: 17:47 kb Administered Medications: 17:40 Drug: Zofran (Ondansetron) 4 mg Route: IVP; Site: right antecubital; tw2 18:23 Follow up: Response: No adverse reaction; Nausea is decreased tw2 17:42 Drug: fentaNYL (PF) 25 mcg Route: IVP; Site: right antecubital; tw2 18:23 Follow up: Pain 5/10 Adult; Response: No adverse reaction; Pain is decreased; RASS: tw2 Alert and Calm (0) 17:51 Drug: NS 0.9% 1000 ml Route: IV; Rate: 1000 ml; Site: right antecubital; tw2 19:15 Follow up: IV Status: Completed infusion; IV Intake: 1000ml lp1 20:28 Drug: Flagyl 500 mg Route: PO; lp1 20:28 Follow up: Response: Medication administered at discharge. lp1 20:28 Drug: Cipro 500 mg Route: PO; lp1 20:29 Follow up: Response: Medication administered at discharge. lp1 20:28 Drug: Bentyl 20 mg Route: PO; lp1 20:29 Follow up: Response: Medication administered at discharge. lp1 Disposition: 04/24 07:56 Co-signature as Attending Physician, Joaquin Levy MD I agree with the assessment and kdr plan of care. Disposition: 04/23/20 20:09 Discharged to Home. Impression: Generalized abdominal pain, Nausea and vomiting. - Condition is Stable. - Discharge Instructions: Viral Gastroenteritis, Adult, [id number], Nausea and Vomiting, Adult, [id number], Abdominal Pain, Adult, [id number]. - Prescriptions for Bentyl 20 mg Oral Tablet - take 1 tablet by ORAL route every 6 hours As needed; 20 tablet. Zofran 4 mg Oral Tablet - take 1 tablet by ORAL route every 6 hours As needed; 20 tablet. Flagyl 500 mg Oral Tablet - take 1 tablet by ORAL route every 8 hours for 7 days; 21 tablet. Cipro 500 mg Oral Tablet - take 1 tablet by ORAL route every 12 hours for 7 days; 14 tablet. - Medication Reconciliation Form, Thank You Letter, Antibiotic Education, Prescription Opioid Use form. - Follow up: Emergency Department; When: As needed; Reason: Worsening of condition. Follow up: Private Physician; When: 2 - 3 days; Reason: Recheck today's complaints, Continuance of care, Re-evaluation by your physician. Signatures: Dispatcher [employer] EDMS Ana Valdovinos, REMELT FURNACE EXPEDITER-C REMELT FURNACE EXPEDITER-Joaquin Ibanez MD MD kdr Christy Smith RN RN lp1 Janny Colon RN RN tw2 Olman Stanton RN RN ll1 Corrections: (The following items were deleted from the chart) 04/23 20:30 20:09 04/23/2020 20:09 Discharged to Home. Impression: Generalized abdominal pain; lp1 Nausea and vomiting. Condition is Stable. Forms are Medication Reconciliation Form, Thank You Letter, Antibiotic Education, Prescription Opioid Use. Follow up: Emergency Department; When: As needed; Reason: Worsening of condition. Follow up: Private Physician; When: 2 - 3 days; Reason: Recheck today's complaints, Continuance of care, Re-evaluation by your physician. kb
--- NOTE | 2020-04-23 20:10 | ER ---
Nurse's Notes [facility] Name: Yolande Hurtado Age: 80 yrs Sex: Female : 1940 Arrival Date: 04/23/2020 Time: 17:08 Bed 16 Private MD: Diagnosis: Generalized abdominal pain;Nausea and vomiting Presentation: 04/23 17:21 Onset of symptoms was April 20, 2020. [facility] 17:21 Acuity: SONJA 3 [facility] 17:21 Chief complaint: Patient states: Severe entire abd pain with N/V/D since Monday. ll1 Believes she ate bad turkish food Monday. Coronavirus screen: Client denies travel out of the [place] in the last 14 days. At this time, the client does not indicate any symptoms associated with coronavirus-19. Ebola Screen: Patient denies travel to an Ebola-affected area in the 21 days before illness onset. Initial Sepsis Screen: Does the patient meet any 2 criteria? HR > 90 bpm. Risk Assessment: Do you want to hurt yourself or someone else? Patient reports no desire to harm self or others. 17:21 Method Of Arrival: Ambulatory [facility] 19:22 Initial Sepsis Screen: Does the patient have a suspected source of infection? No. lp1 Patient's initial sepsis screen is negative. Historical: - Allergies: 17:20 Codeine; ll1 - Home Meds: 19:23 atorvastatin 20 mg Oral tab once daily [Active]; cetirizine 10 mg Oral tab 1 tab once lp1 daily [Active]; fluoxetine 20 mg Oral tab once daily [Active]; levothyroxine 75 mcg tab 1 tab once daily [Active]; losartan-hydrochlorothiazide 100-25 mg Oral tab once daily [Active]; omeprazole 40 mg Oral cpDR once daily [Active]; sulfamethoxazole-trimethoprim Oral twice a day [Active]; - PMHx: 17:20 Hypertension; Hypothyroidism; Anxiety; reflux; ll1 - PSHx: 17:20 Cholecystectomy; partial hysterectomy; back sx; ll1 - Immunization history:: Flu vaccine is up to date. - Social history:: Smoking status: Patient denies any tobacco usage or history of. Patient uses alcohol, wine in the evening. Patient/guardian denies using street drugs. Screenin:27 Abuse screen: Denies injuries from another. Nutritional screening: No deficits noted. tw2 Tuberculosis screening: No symptoms or risk factors identified. Fall Risk Secondary diagnosis (15 points) impaired mobility. Assessment: 17:40 General: Appears uncomfortable, obese, well groomed, Behavior is calm, cooperative, tw2 appropriate for age. Pain: Complains of pain in abdomen. Neuro: Level of Consciousness is awake, alert, obeys commands, Oriented to person, place, time, situation. Cardiovascular: Heart tones S1 S2 Patient's skin is warm and dry. Respiratory: Airway is patent Respiratory effort is even, unlabored, Respiratory pattern is regular, symmetrical, Breath sounds are clear bilaterally. GI: Abdomen is round non-distended, obese, Bowel sounds present X 4 quads. Abdomen is tender to palpation X 4 quads. Reports lower abdominal pain, upper abdominal pain, cramping, nausea, vomiting. : No signs and/or symptoms were reported regarding the genitourinary system. EENT: No signs and/or symptoms were reported regarding the EENT system. Derm: Skin is intact, is healthy with good turgor, Skin is dry. Musculoskeletal: Circulation, motion, and sensation intact. Range of motion: intact in all extremities. 18:23 Reassessment: Patient and/or family updated on plan of care and expected duration. Pain tw2 level reassessed. Patient is alert, oriented x 3, equal unlabored respirations, skin warm/dry/pink. pt back from CT at this time and reported that when "i moved over from [place] and i just got real nauseous all of a sudden but i dont want anything else, i just always get nauseous but honey my pain is so much better, its about a 5/10 now, will i get something to go home with", pt instructed to talk with provider once all the results are back, pt agreeable, provider notified. 19:22 Reassessment: Patient appears in no apparent distress at this time. Patient states lp1 feeling better but continued abdominal cramping. Vital Signs: 17:21 BP 147 / 56; Pulse 112; Resp 22; Temp 98.7; Pulse Ox 99% ; Weight 87.09 kg; Height 5 ll1 ft. 4 in. (162.56 cm); Pain 10/10; 18:23 Pain 5/10; tw2 18:31 BP 132 / 75; Pulse 96; Resp 17; Pulse Ox 95% on R/A; Pain 5/10; tw2 19:22 BP 124 / 71; Pulse 88; Resp 18; Temp 98.6(O); Pulse Ox 100% on R/A; lp1 17:21 Body Mass Index 32.96 (87.09 kg, 162.56 cm) ll1 ED Course: 17:08 Patient arrived in ED. ds1 17:21 Triage completed. ll1 17:21 Arm band placed on Patient placed in an exam room, on a stretcher. ll1 17:25 Placed in gown. Bed in low position. Side rails up X 1. classroom monitor on. Pulse ox tw2 on. NIBP on. Warm blanket given. 17:26 Ana Valdovinos FNP-C is [facility]. kb 17:26 Joaquin Levy MD is Attending Physician. kb 17:27 Janny Colon RN is Primary Nurse. tw2 17:40 Inserted saline lock: 20 gauge in right antecubital area, using aseptic technique. tw2 Blood collected. 19:00 Report given to NANCI Harrison. tw2 19:22 No provider procedures requiring assistance completed. lp1 20:29 IV discontinued, No redness/swelling at site. Pressure dressing applied. lp1 Administered Medications: 17:40 Drug: Zofran (Ondansetron) 4 mg Route: IVP; Site: right antecubital; tw2 18:23 Follow up: Response: No adverse reaction; Nausea is decreased tw2 17:42 Drug: fentaNYL (PF) 25 mcg Route: IVP; Site: right antecubital; tw2 18:23 Follow up: Pain 5/10 Adult; Response: No adverse reaction; Pain is decreased; RASS: tw2 Alert and Calm (0) 17:51 Drug: NS 0.9% 1000 ml Route: IV; Rate: 1000 ml; Site: right antecubital; tw2 19:15 Follow up: IV Status: Completed infusion; IV Intake: 1000ml lp1 20:28 Drug: Flagyl 500 mg Route: PO; lp1 20:28 Follow up: Response: Medication administered at discharge. lp1 20:28 Drug: Cipro 500 mg Route: PO; lp1 20:29 Follow up: Response: Medication administered at discharge. lp1 20:28 Drug: Bentyl 20 mg Route: PO; lp1 20:29 Follow up: Response: Medication administered at discharge. lp1 Intake: 19:15 IV: 1000ml; Total: 1000ml. lp1 Outcome: 20:09 Discharge ordered by . oscar 20:29 Discharged to home ambulatory, with significant other. lp1 20:29 Condition: good 20:29 Discharge instructions given to patient, Instructed on discharge instructions, follow up and referral plans. medication usage, Demonstrated understanding of instructions, follow-up care, medications, Prescriptions given X 4. 20:30 Patient left the ED. lp1 Signatures: Ana Valdovinos, EYELET OPERATOR-C EYELET OPERATOR-Ckb Anne-Marie Costa ds1 Christy Smith, RN RN lp1 Janny Colon RN RN tw2 Olman Stanton RN RN ll1 Corrections: (The following items were deleted from the chart) 18:31 18:23 Reassessment: Patient and/or family updated on plan of care and expected tw2 duration. Pain level reassessed. Patient is alert, oriented x 3, equal unlabored respirations, skin warm/dry/pink. pt back from CT at this time and reported that when "i moved over from CT and i just go real nauseous all of a sudden", provider notified. tw2 18:32 18:31 BP 132 / 75; Pulse 96bpm; Resp 17bpm; Pulse Ox 95% RA; tw2 tw2 18:50 18:23 Reassessment: Patient and/or family updated on plan of care and expected tw2 duration. Pain level reassessed. Patient is alert, oriented x 3, equal unlabored respirations, skin warm/dry/pink. pt back from CT at this time and reported that when "i moved over from [place] and i just got real nauseous all of a sudden but i dont want anything else, i just always get nauseous but honey my pain is so much better, its about a 5/10 now, will i get something to go home with, pt instructed to talk with provider once all the results are back", provider notified. tw2
[2020-04-23] MEDS ORDERED: metroNIDAZOLE 500 MG TABLET ONE (20:30)
[2020-04-23] MEDS ORDERED: DICYCLOMINE HCL 10 MG CAP ONE (20:31)
[2020-04-23] MEDS ORDERED: CIPROFLOXACIN HCL 500 MG TAB ONE (20:31)
[2020-04-23 20:41] VITALS: BP 124/71; TEMP 98.6; O2SAT 100
== END 2020-04-23 20:30 | disposition home or self-care (01) ==
LOC: ER 16:56
DX: R10.84 Generalized abdominal pain (principal); I10 Essential (primary) hypertension; E03.9 Hypothyroidism, unspecified; F41.9 Anxiety disorder, unspecified; Z88.5 Allergy status to narcotic agent
CPT/HCPCS: 96361; 85025; 80048; 36415; 82565; 80076; 83690; 74176; 96375; 96374; 99284; J3010; J7030; J2405

== ENCOUNTER 2021-03-03 01:10 | Emergency (ER) | payer OTHER, BC ==
--- OUTSIDE RECORDS SUMMARY | 2021-03-03 01:15 | XMS REPORT | Continuity of Care Document ---
:1940 Author Organization [facility] t Address [address] [place] [address] Care Team Providers Name Role Phone Daniel Danielson MD Primary Care Physician Viry Romero NP Attending Clinician Brown Page MD Attending Clinician Daniel Danielson MD Attending Clinician Camacho Attending Clinician Unavailable GEOVANY WILSON Attending Clinician Unavailable LAURA WOODSON Admitting Clinician Unavailable Payers Payer Name Policy Type Policy Effective Date Expiration Date Sour ce Number MEDICAREMEDICARE PART [id number] 2006 [place] Mcdonnell AND 00:00:00 Islam [id number][place] [facility] [place] [id number] 2015 [place] PPO/FEDERAL EMPL 00:00:00 Sushma evans [id number] 2015- PresentPPO Problems Condition Condition Condition Status Onset Resolution Last Treating Co mments Source Name Details Category Date Date Treatment Clinician Date Panic Panic Disease Active 2020- [facility] attack as attack as 3-16 [facility] - reaction reaction 00:00: Medica l to stress to stress 00 Cent er Obesity Obesity Disease Active 2020-[address] [facility] 3[facility]16 [facility] - 00[facility]: Medical 00 [place] Anxiety Anxiety Disease Active 2020-[address] [facility] about about 3-15 [facility] - health health 00:00: Medical 00 [place] Aphasia Aphasia Disease Active 2020-[address] 3-14 [facility] - 00:00: Medical 00 [place] Essential Essential Disease Active [facility] hypertensi hypertensi 3-14 Charlee kes - on on 00:00: Medical 00 [place] Hypothyroi Hypothyroi Disease Active C [facility] d d 3-14 [facility] - 00:[facility]: Medical 00 [place] Spinal Spinal Disease Active [place] stenosis stenosis 6-28 Method i of lumbar of lumbar 00:00: st region region 00 SOB SOB Disease Active [place] (shortness (shortness 6-12 Me thodi of breath) of breath) 00:00: st Vaginal Vaginal Disease Active [place] atrophy atrophy 1-26 Methodi 00:00: st Vaginal Vaginal Disease Active [place] vault vault 1-26 [facility] prolapse prolapse 00:00: st Mixed Mixed Disease Active [place] stress and stress and 1-26 Me th[facility] urge urge 00:00: st urinary urinary 00 incontinen incontinen ce ce Incomplete Incomplete Disease Active [place] bladder bladder 1- [facility] emptying emptying 00:00: st Recurrent Recurrent Disease Active [facility] UTI UTI 1-26 [facility] 00:00: st 00 Incomplete Incomplete Disease Active [place] defecation defecation 1-26 Me thodi 00:00: st 00 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:00: st syndrome syndrome 00 Osteoarthr Osteoarthr Disease Active [place] itis of itis of 4-19 [facility] lumbar lumbar 00:00: st spine spine 00 Essential Essential Disease Active [facility] [facility] hypertensi hypertensi 3-08 Me thodi on on 00:00: st 00 Depression Depression Disease Active [place] 3-08 [facility] 00:00: st 00 Gastroesop Gastroesop Disease Active [place] hageal hageal 3-08 [facility] reflux reflux 00:00: st disease disease 00 with with esophagiti esophagiti s s HLD HLD Disease Active [place] (hyperlipi (hyperlipi 3-08 Me [facility] demia) demia) 00:00: st 00 Acquired Acquired Disease Active [place] hypothyroi hypothyroi 3-08 Me [facility] dism dism 00:00: st 00 Low back Low back Disease Active [place] pain pain 11-23 Method[facility] 00:00: st 00 Allergies, Adverse Reactions, Alerts Allergy Allergy Status Severity Reaction(s) Onset Inactive Treating Comm ents Source Name Type Date Date Clinician Petra Mejia Active [place] ty to 11-23 Method[facility] adverse 00:00: st reaction 00 s to drug Family History Family Member Diagnosis Comments Start Date Stop Date Source Natural father Other [facility] thodist Maternal grandfather Cancer [place] Natural mother Alzheimer's [facility] ethodist disease Social History Social Habit Start Date Stop Date Quantity Comments Source History of tobacco Current smoker [place] Islam use Exposure to Not sure [place] Metho dist SARS-CoV-2 (event) [facility] - [facility] Binge Medical Jason ter Sex Assigned At [facility] Cigarettes smoked 2021-02-25 2021-02-25 [place] Islam current (pack per 00:00:00 00:00:00 day) - Reported Cigarette 2021-02-25 2021-02-25 [facility] ist pack-years 00:00:00 00:00:00 Tobacco use and 2021-02-25 2021-02-25 Never used [facility] ethodist exposure 00:00:00 00:00:00 Alcohol intake 2021-02-25 2021-02-25 Current drinker [place] Islam 00:00:00 00:00:00 of alcohol (finding) Alcohol Comment 2020-11-30 2020-11-30 weekly [facility] ethodist 00:00:00 00:00:00 History SDOH 2019-11-30 2019-11-[address] [facility] [address] [employer] - Alcohol Frequency 00:00:00 00:00:00 [facility] Center Smoking Status Start Date Stop Date Source Former smoker 2021-02-25 00:00:00 2021-02-25 00:00:00 [place] Islam Never smoker [facility] Medications Ordered Filled Start Stop Current Ordering Indication Dosage Frequency Signature Comments Components Source Medication Medication Date Date Medication? Clinician (SIG) Name Name cetirizine Yes 10mg QD Take 10 mg [place] (ZyrTEC) 10 6-10 by mouth Meth fawad MG tablet 08:21: daily. st 34 estradioL Yes Mixed .5g Q.[id number] Insert 0.5 [place] (Estrace) 3-15 incontinenc [id number] g into the Methodi 0.01 % (0.1 00:00: e 3W vagina 3 st mg/gram) 00 (three) vaginal times a cream week. Dispense 1 tube. acetaminoph Yes 500mg Q6H Take 500 [place] en 2-15 mg by [facility] (TYLENOL) 00:00: mouth st 500 MG 00 every 6 tablet (six) hours as needed for mild pain. levothyroxi Yes TAKE 1 [place] ne 1-12 TABLET BY [facility]i (SYNTHROID) 00:00: MOUTH st 75 mcg 00 EVERY DAY tablet IN THE MORNING atorvastati Yes Pure TAKE 1 [place] (LIPITOR) 1-12 hypercholes TABLET BY Methodi 20 mg 00:00: terolemia MOUTH st tablet 00 EVERY DAY losartan-hy Yes TAKE 1 [place] drochloroth 1-12 TABLET BY Met hodi iazide 00:00: MOUTH st (HYZAAR) 00 EVERY DAY 50-12.5 mg per tablet FLUoxetine Yes TAKE 1 [place] (PROzac) 20 1-12 CAPSULE BY Me thodi MG capsule 00:00: MOUTH st 00 EVERY DAY fluticasone Yes SPRAY 1 [place] propionate 1-11 SPRAY INTO Met hodi (FLONASE) 00:00: EACH st 50 00 NOSTRIL mcg/actuati EVERY DAY on nasal spray fluticasone 2020- No 50ug QD 1 spray [place] propionate 1-11 01-11 (50 mcg Meth[place] di (FLONASE) 00:00: 00:00 total) by st 50 00 :00 Each Nare mcg/actuati route on nasal daily. spray ondansetron 2019-0 Yes 4mg Q8H Take 1 [place] (Zofran) 4 8-12 tablet (4 Meth fawad MG tablet 00:00: mg total) st 00 by mouth every 8 (eight) hours as needed for nausea or vomiting. mupirocin 2020-0 Yes QD Apply [place] (BACTROBAN) 7-31 topically Met hodi 2 % 00:00: daily. st ointment 00 sulfamethox 2019- No 1{tbl} Q.5D Take 1 [place] azole-trime 7-31 08-12 tablet by thodi thoprim 00:00: 00:[address] (BACTRIM 00 :00 (two) DS) 800-160 times a mg per day. X 10 tablet days losartan-hy 2020- No TAKE 1 [place] drochloroth 7-20 -12 TABLET BY Me [place] iazide 00:00: 00:[address] (HYZAAR) 00 :00 EVERY DAY 50-12.5 mg per tablet FLUoxetine 2020- No TAKE 1 [place] (PROzac) 20 6-08 12 CAPSULE BY Roger ethodi MG capsule 00:00: 00:[address] 00 :00 EVERY DAY levothyroxi 2020- No TAKE 1 [place] ne 4-15 -12 TABLET BY Methodi (SYNTHROID) 00:00: 00:[address] 75 mcg 00 :00 EVERY DAY tablet IN THE MORNING atorvastati 2020- No Pure TAKE 1 [place] n (LIPITOR) 4-15 -12 hypercholes TABLET BY Methodi 20 MG 00:00: 00:[address] tablet 00 :00 EVERY DAY losartan-hy Yes hypertensio 1{tbl} QD Take [address] droCHLOROth 3-16 n tablet by Ronit es - iazide 16:40: mouth Medical (HYZAAR) 24 daily. Center 100-25 mg per tablet levothyroxi Yes 75ug Take [address] ne 3-16 mcg by [facility]ukes - (SYNTHROID, 16:40: mouth Medic al LEVOTHROID) 24 Every Center 75 MCG morning on tablet an empty stomach. FLUoxetine Yes anxiety 20mg QD Take [address] (PROZAC) 20 3-16 with by mouth Luke s - MG tablet 16:40: depression daily. Medical 24 Center atorvastati Yes hyperlipide 20mg QD Take [address] n (LIPITOR) 3-16 jl by mouth Luke s - 20 MG 16:40: daily. Medical tablet 24 Center cetirizine Yes seasonal 10mg QD Take [address] (ZYRTEC) 10 3-16 allergic by mouth [facility]ukes - MG tablet 16:40: rhinitis daily. Pa dichi 24 [place] diclofenac 2020-0 Yes Q.25D APPLY [place] (VOLTAREN) 2-15 TOPICALLY Meth fawad 1 % gel 00:00: 4 (FOUR) st 00 TIMES A DAY. APPLY 1-2 GRAMS TO AFFECTED AREA 3-4 TIMES DAILY. losartan-hy 2018- 2020- No 1{tbl} QD Take 1 [place] drochloroth 0-08 07-20 tablet by Pa rafy iazide 00:00: 00:[address] (HYZAAR) 00 :00 daily. 50-12.5 mg per tablet Immunizations Ordered Immunization Filled Immunization Date Status Commen ts Source Name Name FLUZONE HIGH-DOSE PF 2020-05-29 Completed [place] 00:00:00 Islam Tdap 2020-04-20 Completed [place] 00:00:00 Islam FLUZONE HIGH-DOSE PF 2019-06-25 Completed [place] 00:00:00 Islam FLUZONE HIGH-DOSE PF 2018-08-27 Completed [place] 00:00:00 Islam FLUZONE HIGH-DOSE PF 2015-06-10 Completed [place] 00:00:00 Islam Pneumococcal 2015-06-03 Completed [place] Conjugate 00:00:00 Islam Pneumococcal 2015-06-03 Completed [place] Conjugate 13-Valent 00:00:00 [facility] dist Zoster 2010-06-09 Completed [place] 00:00:00 Islam Pneumococcal 2009-07-21 Completed [place] Polysaccharide 00:00:00 Islam Tdap 2008-08-18 Completed [place] 00:00:00 Islam Vital Signs Vital Name Observation Time Observation Value Comments Source Systolic blood 2021-02-25 08:22:00 141 mm[Hg] Tracyto n Islam pressure Diastolic blood 2021-02-25 08:22:00 74 mm[Hg] Jose Manuel on Islam pressure Heart rate 2021-02-25 08:22:00 66 /min Jesse Chapman Body temperature 2021-02-25 08:22:00 35.78 Sanaz [place] Body height 2021-02-25 08:22:00 162.6 cm Jesse Chapman Body weight 2021-02-25 08:22:00 84.55 kg Jesse Chapman BMI 2021-02-25 08:22:00 32.00 kg/m2 Jesse Chapman Oxygen saturation in 2020-10-15 14:52:00 97 /min Jesse Chapman Arterial blood by Pulse oximetry Procedures Procedure Date / Time Performed Performing Clinician [facility] e POC URINALYSIS DIPSTICK 2020-11-30 10:57:00 Tita Romero MEASURE POST VOID 2020-11-30 00:00:00 Tita Romero RESIDUAL URINE CULTURE 2020-10-13 11:15:00 Link Danielson Pa thodist URINALYSIS, AUTOMATED 2020-10-13 11:15:00 Link Danielson WITH MICROSCOPY THYROID STIMULATING 2020-09-23 10:47:00 Link Danielson HORMONE BASIC METABOLIC PANEL 2020-09-23 10:47:00 Link Danielson HEMOGLOBIN A1C 2020-09-23 10:47:00 Link Danielson Pa thodist CBC WITH PLATELET AND 2020-09-23 10:47:00 Link Danielson DIFFERENTIAL LIPID PANEL 2020-09-23 10:47:00 Link Danielson Pa thodist HEPATIC FUNCTION PANEL 2020-09-23 10:47:00 Link Danielson Plan of Care Planned Activity Planned Date Details Comments Source Future Scheduled 2021-04-18 INFLUENZA VACCINE Geoff Chapman Test 00:00:00 [code = INFLUENZA VACCINE] Future Scheduled 2020-05-19 INFLUENZA VACCINE (#1) [facility] 00:00:00 [code = INFLUENZA Medical Ce nter VACCINE (#1)] Future Scheduled 2010-08-09 SHINGLES VACCINES (#2) H nicole Chapman Test 00:00:00 [code = SHINGLES VACCINES (#2)] Future Scheduled 2007-12-[address] [facility] - Test 00:00:00 WELLNESS (YEAR 2 or Medical Center FIRST YEAR if no IPPE) [code = MEDICARE ANNUAL WELLNESS (YEAR 2 or FIRST YEAR if no IPPE)] Future Scheduled 2007 PNEUMOCOCCAL 65+ Y[facility] - Test 00:00:00 (1 of 1 - [facility] Center [id number] PCV13) [code = PNEUMOCOCCAL 65+ YRS (1 of 1 - [id number] PCV13)] Future Scheduled 1960-01-10 Hepatitis C screening [place] Test 00:00:00 (procedure) [code = 395532317] Future Scheduled 1954 COVID-19 VACCINE (1) [facility] gray Islam Test 00:00:00 [code = COVID-19 VACCINE (1)] Encounters Start End Encounter Admission Attending Care Care Encounter Source Date/Time Date/Time Type Type Clinicians Facility Department ID 2021-02-25 2021-02-25 Outpatient ROMERO, [facility] [id number] [place] 00:00:00 00:00:00 TITA [address] 2020-11-30 2020-11-30 Outpatient MATTHEW, [facility] [id number] [place] 00:00:00 00:00:00 TRISTI [address] 2020-10-15 2020-10-15 Outpatient DANIELSON, [facility] [id number] [place] 00:00:00 00:00:00 LINK [address] 2020-09-28 2020-09-28 Outpatient DANIELSON, [facility] [id number] [place] 00:00:00 00:00:00 [address] 2020-09-23 2020-09-23 Outpatient DANIELSON, [facility] [id number] [place] 00:00:00 00:00:00 LINK [address] 2020-05-29 2020-05-29 Outpatient DANIELSON, [facility] [id number] [place] 00:00:00 00:00:00 LINK [address] 2020-04-29 2020-04-29 Outpatient DANIELSON, [facility] [id number] [place] 00:00:00 00:00:00 LINK [address] 2020-04-20 2020-04-20 Outpatient DANIELSON, [facility] [id number] [place] 00:00:00 00:00:00 LINK [address] 2020-02-24 2020-02-24 Outpatient DANIELSON, [facility] [id number] [place] 00:00:00 00:00:00 LINK [address] 2020-02-24 2020-02-24 Outpatient DANIELSON, [facility] [id number] [place] 00:00:00 00:00:00 LINK [place] [facility] Results Test Description Test Time Test Comments Results Result Comments Source POC urinalysis dipstick 2020-11-30 10:57:00 Test Item Value Reference Range Interpretation Comme nts Color urine, POC (test code = Yellow 2363654) Clarity urine, POC (test code Slightly Cloudy = 1648565) Glucose urine, POC (test code Negative Negative = 1523374) Bilirubin urine, POC (test Negative Negative code = 7908982) Ketones urine, POC (test code Negative Negative = 8344190) Specific gravity urine, POC 1.010 1.005-1.030 (test code = 8559064) Blood urine, POC (test code = Trace Negative A 4802914) pH urine, POC (test code = 8.0 See_Comment [Automated message] The 1751077) system which ge nerated this result tra nsmitted reference range : 5.0, 5.5, 6.0, 6.5, 7.0, 7.5, 8.0, 8.5. The refere nce range was not used to interpret this result as normal/abnormal . Protein urine, POC (test code Negative Negative = 4322672) Urobilinogen urine, POC (test <2.0 <2.0 code = 6651852) Nitrite urine, POC (test code Negative Negative = 6272015) Leukocyte esterase urine, POC Negative Negative (test code = 6095487) Lab Interpretation (test code Abnormal = 37481-6) [place] MethodistMeasure post void [id number] 10:57:00 Test Item Value Reference Range Interpretation Comments PVR volume (test code = 5766) 58ml [place] MethodistBasic metabolic [id number] 08:42:00 Test Item Value Reference Range Interpretation Comments Glucose (test 90 mg/dL 65-99 Fa sting code = 2345-7) reference int erval BUN (test code = 16 mg/dL 7-25 3094-0) Creatinine (test 0.85 mg/dL 0.60-0.93 For patient s >49 code = 2160-0) years of age, the reference limit for Creatinine is approximately 1 3% higher for peopleidentifie d as -Clotilde n. EGFR Non-Afr. 66 See_Comment [Automated me ssage] Nepalese (test The system ich code = 2775) generated this result transmitted ref erence range: > OR = 6 0 mL/min/1.73m2. The reference range was not used to int erpret this result as normal/abnormal . EGFR 76 See_Comment [Automated mes rupesh] Nepalese (test The system ich code = 70108-7) generated th is result transmitted ref erence range: > OR = 6 0 mL/min/1.73m2. The reference range was not used to int erpret this result as normal/abnormal . BUN/creatinine NOT APPLICABLE See_Comment [Automated message] ratio (test code The system which = 3097-3) generated this result transmitted ref erence range: 6 - 22 ( calc). The reference r amira was not used to interpret this result as normal/abnor mal. Sodium (test 135 mmol/L 135-146 code = 2951-2) Potassium (test 4.3 mmol/L 3.5-5.3 code = 2823-3) Chloride (test 99 mmol/L 98-110 code = 2075-0) CO2 (test code = 29 mmol/L 20-32 2027-) Calcium (test 9.3 mg/dL 8.6-10.4 code = 89443-5) RAC (test code = Performing RAC) Organization Information: Site ID: [facility] Name: [facility] Address: [address] [place] [id number] Director: Arcelia Mata [place] MethodistLipid [id number] 08:42:00 Test Item Value Reference Range Interpretation Comments Cholesterol, total 188 mg/dL <200 (test code = 2093-3) HDL cholesterol 63 mg/dL See_Comment [Automated (test code = 2085-9) message ] The system which generated this result transmitted reference range : > OR = 50. The reference range was not used to interpret this result as normal/abnormal . Triglycerides (test 109 mg/dL <150 code = 2571-8) LDL cholesterol 104 mg/dL (calc) H Reference ra nge: calculated (test <100 Desira ble code = 46261-0) range <100 m g/dL for primary prevention; <7 0 mg/dL for patients with C HD or diabetic patients with > or = 2 CHD risk factors. LDL-C is now calculated using the Abram calculation, which is a validated novel method providin g better accuracy than the Friedewald equation in the estimation of LDL-C. Kyaw Medrano S et al. BRANDIE. 2013;310(19): 2053-2620 (http://educati on .[employer]walk[employer] .com/faq/POS168 ) Cholesterol/HDL 3.0 See_Comment [Automated ratio (test code = message] The 6030-1) system which generated this result transmitted reference range : <5.0 (calc). Th e reference range was not used to interpret this result as normal/abnormal . Non-HDL cholesterol 125 See_Comment For rebecca ents with (test code = diabetes plus 1 05639-5) major ASCVD ris k factor, treatin g to a non-HDL-C goal of <100 mg/dL (LDL-C of <70 mg/dL) is considered a therapeutic option. [Automated message] The system which generated this result transmitted reference range : <130 mg/dL (calc). The reference range was not used to interpret this result as normal/abnormal . RAC (test code = Performing RAC) Organization Information: Site ID: [facility] Name: [facility] Address: [address] [place] [phone] Director: Arcelia Mata Lab Interpretation Abnormal (test code = 16805-4) [place] [facility] facilityHepatic function [id number] 08:42:00 Test Item Value Reference Range Interpretation Comments Protein (test code 6.8 g/dL 6.1-8.1 = 2885-2) Albumin, S (test 4.4 g/dL 3.6-5.1 code = 1751-7) Globulin, total 2.4 See_Comment [Automated (test code = message] The 49463-5) system which generated this result transmitted reference range : 1.9 - 3.7 g/dL (calc). The reference range was not used to interpret this result as normal/abnormal . Albumin/globulin 1.8 See_Comment [Automated ratio (test code = message] The ) system which generated this result transmitted reference range : 1.0 - 2.5 (calc ). The reference range was not used to interpr et this result as normal/abnormal . Total bilirubin 0.6 mg/dL 0.2-1.2 (test code = 1974-10) Bilirubin direct 0.1 mg/dL See_Comment [Automated (test code = message] The 1968-03) system which generated this result transmitted reference range : < OR = 0.2. The reference range was not used to interpret this result as normal/abnormal . Bilirubin, 0.5 See_Comment [Automated indirect (test message] The code = 1970-09) system which generated this result transmitted reference range : 0.2 - 1.2 mg/dL (calc). The reference range was not used to interpret this result as normal/abnormal . Alkaline 87 U/L 37-153 phosphatase (test code = 6768-6) AST (test code = 15 U/L 10-35 1920-8) ALT (test code = 12 U/L 6-29 1742-6) RAC (test code = Performing RAC) Organization Information: Site ID: [facility]: [facility] Address: [address] [place] [id number] Director: Arcelia Molina MethodsalvatoreHemoglobin [id number] 08:42:00 Test Item Value Reference Range Interpretation Comments Hemoglobin A1C 5.5 See_Comment For the purpo se of (test code = screening for t he 4548-4) presence ofdiab etes: <5.7% Consistent with the absence of diabetes5.7-6.4 % Consistent with increased risk for diabetes (prediabetes)> or =6.5% Consiste nt with diabetes T his assay result is consistent with a decreased risko f diabetes. Curre ntly, no consensus ex ists regarding use ofhemoglobin A1 c for diagnosis of di abetes in children. According to [place] Diabetes Associ ation (ADA)guidelines , hemoglobin A1c <7.0% represents optimalcontrol in non- di abetic patients. Differentmetric s may apply to specif ic patient populat ions. Standards of Pa dical Care in Diabetes(ADA). [Automated mess age] The system seoreseller.com generated this result transmitted ref erence range: <5.7 % o f total Hgb. The reference range was not used to int erpret this result as normal/abnormal . RAC (test code = Performing RAC) Organization Information: Site ID: [facility] Name: [facility] Address: [address] [place] [address] Director: Arcelia Ariasridge [place] MethodistThyroid stimulating [id number] 08:42:00 Test Item Value Reference Range Interpretation Comments TSH (test 1.67 See_Comment [Automated mes rupesh] code = The system [facility] 3016-3) generated this result transmit zohra reference range : 0.40 - 4.50 mIU /L. The reference r amira was not used to interpret this result as normal/abnormal . RAC (test Performing code = RAC) Organization Information: Site ID: [facility] Name: [facility] Address: [address] [place] [address] Director: Arcelia Ariasridge [place] MethodistCBC with platelet and [id number] 08:42:00 Test Item Value Reference Range Interpretation Comments WBC (test code = 7.2 See_Comment [Automated 3090-2) message] The system which generated this result transmitted reference range : 3.8 - 10.8 Thousand/uL. Th e reference range was not used to interpret this result as normal/abnormal . RBC (test code = 4.16 See_Comment [Automated 869-8) message] The system which generated this result transmitted reference range : 3.80 - 5.10 Million/uL. The reference range was not used to interpret this result as normal/abnormal . HGB (test code = 13.0 g/dL 11.7-15.5 718-7) HCT (test code = 38.4 % 35.0-45.0 4544-3) MCV (test code = 92.3 fL 80.0-100.0 787-2) MCH (test code = 31.3 pg 27.0-33.0 785-6) MCHC (test code = 33.9 g/dL 32.0-36.0 786-4) RDW (test code = 12.1 % 11.0-15.0 788-0) Platelet count 242 See_Comment [Automated (test code = message] The 777-3) system which generated this result transmitted reference range : 140 - 400 Thousand/uL. Th e reference range was not used to interpret this result as normal/abnormal . MPV (test code = 10.0 fL 7.5-12.5 776-5) Neutrophils, 4320 See_Comment [Automated absolute (test message] The code = 751-8) system which generated this result transmitted reference range : 1,500 - 7,800 cells/uL. The reference range was not used to interpret this result as normal/abnormal . Lymphocytes, 2059 See_Comment [Automated absolute (test message] The code = 731-0) system which generated this result transmitted reference range : 850 - 3,900 cells/uL. The reference range was not used to interpret this result as normal/abnormal . Monocytes, 612 See_Comment [Automated absolute (test message] The code = 742-7) system which generated this result transmitted reference range : 200 - 950 cells/uL. The reference range was not used to interpret this result as normal/abnormal . Eosinophils, 137 See_Comment [Automated absolute (test message] The code = 711-2) system which generated this result transmitted reference range : 15 - 500 cells/uL. The reference range was not used to interpret this result as normal/abnormal . Basophils, 72 See_Comment [Automated absolute (test message] The code = 704-7) system which generated this result transmitted reference range : 0 - 200 cells/u L. The reference range was not used to interpr et this result as normal/abnormal . Neutrophils (test 60 % code = 770-8) Lymphocytes (test 28.6 % code = 736-9) Monocytes (test 8.5 % code = 5905-5) Eosinophils (test 1.9 % code = 713-8) Basophils + RC 1.0 % (test code = 706-2) RAC (test code = Performing RAC) Organization Information: Site ID: [facility] Address: [address] [place] [id number] Director: Arcelia ChapmanVITAMIN B12 AND [id number] 07:21:00 Test Item Value Reference Range Interpretation Comments VITAMIN B12 (BEAKER) (test code = 267 pg/mL 213-816 774) FOLATE (BEAKER) (test code = 362) 7.9 ng/mL >=7.0 Ethylbenzene Cracking Supervisor NUSRAT KANH FVITAMIN D, [id number] 05:55:00 Test Item Value Reference Range Interpretation Comments VITAMIN D 25-OH (BEAKER) (test 15.7 ng/mL 6.6-49.9 code = 2764) Effective 06/28/2017: Reference Range ChangeNew: 6.6-49.9 ng/mL Previous: 13.0-47.8 ng/mLRecommended Vitamin D Target Range: 30.0-40.0 ng/mLOperator ID Vero SANCHEZ MBASIC METABOLIC [id number] 05:46:00 Test Item Value Reference Range Interpretation [...] S NOT APPLICABLE FOR DIALYSIS PATIEN TS. Ethylbenzene Cracking Supervisor ID Vero SANCHEZ MCBC W/PLT COUNT & AUTO [id number] 05:22:00 Test Item Value Reference Range Interpretation [...] code = 2801) MR, MRA, BRAIN, WITHOUT [id number] 12:32:00Reason for exam:->Ischemic Stroke EvaluationFINAL REPORT MR, [...] MDReport Verified Date/Time: 12/01/2019 12:32:02 Reading Location: [address] Neuro Reading Room MR, MRA, [...] MDReport Verified Date/Time: 12/01/2019 12:32:02 Reading Location: [address] Neuro Reading Room MR, BRAIN, [...] Verified Date/Time: 12/01/2019 12:32:02 Reading Location: [facility] [id number] Neuro Reading Room HEMOGLOBIN [id number] 09:39:00 Test Item Value Reference Range Interpretation Comments HEMOGLOBIN A1C (BEAKER) (test code = 5.5 % 4.3-6.1 368) TSH/FREE T4 IF [id number] 06:57:00 Test Item Value Reference Range Interpretation Comments THYROID STIMULATING HORMONE 1.70 uIU/mL 0.35-4.94 (BEAKER) (test code = 772) Ethylbenzene Cracking Supervisor ID - LAURA MVITAMIN B12 AND [id number] 06:57:00 Test Item Value Reference Range Interpretation Comments VITAMIN B12 (BEAKER) (test code = 228 pg/mL 213-816 774) FOLATE (BEAKER) (test code = 362) 10.9 ng/mL >=7.0 Ethylbenzene Cracking Supervisor ID - LAURA MCBC W/PLT COUNT & AUTO [id number] 06:53:00 Test Item Value Reference Range Interpretation [...] 0-1 PERCENT (BEAKER) (test code = 2801) LIPID [id number] 06:36:00 Test Item Value Reference Range Interpretation [...] Borderline 130-159 High 160-189 Very High >=190 Ethylbenzene Cracking Supervisor NUSRAT VILLANUEVAASIC METABOLIC [id number] 06:36:00 Test Item Value Reference Range Interpretation [...] S NOT APPLICABLE FOR DIALYSIS PATIEN TS. Ethylbenzene Cracking Supervisor NUSRAT SANCHEZ MC-REACTIVE [id number] 06:36:00 Test Item Value Reference Range Interpretation Comments C-REACTIVE PROTEIN (BEAKER) (test 0.46 mg/dL 0.00-0.50 code = 676) Ethylbenzene Cracking Supervisor NUSRAT Duran
[2021-03-03 02:22] LABS: Absolute Lymphocytes (CBC) 2.5 K/uL (0.7-4.9); Basophils % 0.7 % (0-1.3); Hematocrit 34.2 % (36.0-45.0); Lymphocytes % 41.1 % (15.3-44.8); MPV 8.1 fL (7.6-11.3); RBC Red Blood Cell Count 3.57 M/uL (3.86-4.86)
[2021-03-03] MEDS ORDERED: ONDANSETRON 4 MG/2 ML VIAL ONE (02:33)
[2021-03-03] MEDS ORDERED: NA CHLORIDE 0.9% 1,000 ML ONE (02:34)
[2021-03-03] MEDS ORDERED: MEPERIDINE HCL 25 MG/ML SYR ONE (02:34)
[2021-03-03 02:35] LABS: BUN Blood Urea Nitrogen 16 mg/dL (7-18); Bicarbonate 25 mmol/L (21-32); Glucose Level 105 mg/dL (74-106); Sodium Level 135 mmol/L (136-145); Troponin (Emerg Dept Use Only) < 0.02 ng/mL (0.0-0.045)
[2021-03-03 04:14] LABS: Urine Blood Trace-intact (Negative); Urine Glucose Negative (Negative); Urine Protein Negative (Negative); Urine pH 6.5 (5.0-7.0)
--- NOTE | 2021-03-03 04:39 | EDPHYS ---
Physician Documentation [facility] Name: Yolande Hurtado Age: 81 yrs Sex: Female : 1940 Arrival Date: 03/03/2021 Time: :16 Bed 17 Private MD: ED Physician Jamel Montiel HPI: 03/03 02:22 This 81 yrs old Female presents to ER via Ambulatory with complaints of rn Headache, Weakness, Dehydration, Abdominal Pain. 02:22 The patient complains of pain to the forehead. The patient describes the headache as rn aching. Onset: The symptoms/episode began/occurred yesterday. Associated signs and symptoms: Pertinent positives: malaise, blurred vision, weakness, headache, Pertinent negatives: fever, neck stiffness, rash, vision loss, vertigo. Severity of symptoms: At its worst the pain was moderate, in the emergency department the pain is unchanged. Headache History: The patient has had previous headaches and this one is similar to previous episodes. The patient has experienced similar episodes in the past. The patient has not recently seen a physician. Reports didn't feel well last night around 1800, no head injury or fall, no focal weakness or numbness. No fever/chills/chest pain/sob. Reports chronic abd pain that began after headache and malaise, has intermittently. No vomiting/diarrhea. Had blurred vision yesterday, improved today. Reports has been having headaches recently and has been meaning to get eyes checked soon. Feels weak all over. No urinary symptoms. . Historical: - Allergies: 01:36 Codeine; bb - Home Meds: 01:36 atorvastatin 20 mg Oral tab once daily [Active]; cetirizine 10 mg Oral tab 1 tab once bb daily [Active]; fluoxetine 20 mg Oral tab once daily [Active]; levothyroxine 75 mcg tab 1 tab once daily [Active]; losartan-hydrochlorothiazide 100-25 mg Oral tab once daily [Active]; omeprazole 40 mg Oral cpDR once daily [Active]; estrogen cream [Active]; - PMHx: 01:36 Anxiety; Hypertension; Hypothyroidism; reflux; bb - PSHx: 01:36 Cholecystectomy; partial hysterectomy; back sx; bb - Immunization history:: Adult Immunizations up to date. - Social history:: Smoking status: unknown. - Family history:: not pertinent. - Hospitalizations: : No recent hospitalization is reported. ROS: 02:22 Constitutional: Negative for fever, chills, and weight loss, Eyes: Negative for injury, rn pain, redness, and discharge, Neck: Negative for injury, pain, and swelling, Cardiovascular: Negative for chest pain, palpitations, and edema, Respiratory: Negative for shortness of breath, cough, wheezing, and pleuritic chest pain, Abdomen/GI: Negative for abdominal pain, nausea, vomiting, diarrhea, and constipation, Back: Negative for injury and pain, MS/Extremity: Negative for injury and deformity, Skin: Negative for injury, rash, and discoloration, Neuro: Negative for numbness, tingling, and seizure. Exam: 02:22 Constitutional: This is a well developed, well nourished patient who is awake, alert, rn and in no acute distress. Head/Face: Normocephalic, atraumatic. Eyes: Pupils equal round and reactive to light, extra-ocular motions intact. Periorbital areas with no swelling, redness, or edema. ENT: dry MM Neck: Trachea midline, no masses. No Meningismus. Cardiovascular: Regular rate and rhythm. No pulse deficits. Respiratory: No increased work of breathing, no retractions or nasal flaring. Abdomen/GI: soft, mild epigastric tenderness, no rebound Skin: Warm, dry MS/ Extremity: Pulses equal, no cyanosis. Neuro: Awake and alert, GCS 15, oriented to person, place, time, and situation. Cranial nerves II-XII grossly intact. Motor strength 5/5 in all extremities. Sensory grossly intact. Vital Signs: 01:33 BP 175 / 96; Pulse 84; Resp 16 S; Temp 97.8(O); Pulse Ox 100% on R/A; Weight 84.37 kg bb (R); Height 5 ft. 5 in. (165.10 cm) (R); Pain 5/10; 02:15 BP 166 / 78; Pulse 83; Resp 16; Pulse Ox 100% on R/A; jb4 04:00 BP 141 / 72; Pulse 70; Resp 16; Pulse Ox 100% on R/A; jb4 01:33 Body Mass Index 30.95 (84.37 kg, 165.10 cm) bb [place] Coma Score: 04:35 Eye Response: spontaneous(4). Verbal Response: oriented(5). Motor Response: obeys rn commands(6). Total: 15. MDM: 01:27 Patient medically screened. rn 04:35 Differential diagnosis: hypertensive headache, intracerebral hemorrhage, migraine, rn tension headache, vasomotor headache. Data reviewed: vital signs, nurses notes, lab test result(s), EKG, radiologic studies, CT scan, and as a result, I will discharge patient. Counseling: I had a detailed discussion with the patient and/or guardian regarding: the historical points, exam findings, and any diagnostic results supporting the discharge/admit diagnosis, lab results, radiology results, the need for outpatient follow up, to return to the emergency department if symptoms worsen or persist or if there are any questions or concerns that arise at home. Response to treatment: the patient's symptoms have markedly improved after treatment, the patient's condition has returned to base line, the patient is now symptom free, and as a result, I will discharge patient. Special discussion: I discussed with the patient/guardian in detail that at this point there is no indication for admission to the hospital. It is understood, however, that if the symptoms persist or worsen the patient needs to return immediately for re-evaluation. 04:39 ED course: CT head neg, ct abdomen neg, UA neg. Pt requesting to go home, feels better..rn 03/03 01:48 Order name: CBC with Diff; Complete Time: 04:01 rn 03/03 01:48 Order name: Basic Metabolic Panel; Complete Time: 04:01 rn 03/03 01:48 Order name: CT Head Brain wo Cont rn 03/03 01:48 Order name: Troponin (emerg Dept Use Only); Complete Time: 04:01 rn 03/03 04:14 Order name: Urine Dipstick-Ancillary; Complete Time: 04:35 EDMS 03/03 01:48 Order name: IV Start; Complete Time: 02:29 rn 03/03 01:48 Order name: Urine Dipstick-Ancillary (obtain specimen); Complete Time: 04:12 rn 03/03 01:48 Order name: EKG; Complete Time: 01:49 rn 03/03 01:48 Order name: EKG - Nurse/Tech; Complete Time: 02:29 rn 03/03 01:48 Order name: CT Abd/Pelvis - IV Contrast Only rn Administered Medications: 02:19 Drug: NS 0.9% 1000 ml Route: IV; Rate: 1000 ml; Site: left antecubital; jm8 03:45 Follow up: Response: No adverse reaction; IV Status: Completed infusion; IV Intake: jb4 1000ml 02:19 Drug: Demerol (meperidine) 12.5 mg Route: IVP; Site: left antecubital; jm8 02:50 Follow up: Response: No adverse reaction; Marked relief of symptoms; Pain is decreased; jb4 RASS: Alert and Calm (0) 02:20 Drug: Zofran (Ondansetron) 4 mg Route: IVP; Site: left antecubital; jm8 02:50 Follow up: Response: No adverse reaction; Marked relief of symptoms jb4 Disposition: 03/03/21 04:38 Discharged to Home. Impression: Headache. - Condition is Stable. - Discharge Instructions: General Headache Without Cause. - Medication Reconciliation Form, Thank You Letter, Antibiotic Education, Prescription Opioid Use form. - Follow up: Private Physician; When: As needed; Reason: Recheck today's complaints, Re-evaluation by your physician. - Problem is new. - Symptoms have improved. Signatures: Dispatcher [employer] EDMS Marcia Hernandez RN RN bb Nieto, Roman, MD MD rn Bryson, James, RN RN jb4 Robbie Zeng RN NANCI jm8 Corrections: (The following items were deleted from the chart) 04:52 04:38 03/03/2021 04:38 Discharged to Home. Impression: Headache. Condition is Stable. jb4 Forms are Medication Reconciliation Form, Thank You Letter, Antibiotic Education, Prescription Opioid Use. Follow up: Private Physician; When: As needed; Reason: Recheck today's complaints, Re-evaluation by your physician. Problem is new. Symptoms have improved. rn
--- NOTE | 2021-03-03 04:39 | ER ---
Nurse's Notes [facility] Name: Yolande Hurtado Age: 81 yrs Sex: Female : 1940 Arrival Date: 03/03/2021 Time: : Bed 17 Private MD: Diagnosis: Headache Presentation: 03/03 01:33 Chief complaint: Patient states: she started feeling weak and tired at approx 1800 last bb night thought she may be dehydrated and drank some water after which she felt better then she had a headache and took tylenol but it did not help and she started having chest pain. Coronavirus screen: At this time, the client does not indicate any symptoms associated with coronavirus-19. Ebola Screen: No symptoms or risks identified at this time. Initial Sepsis Screen: Does the patient meet any 2 criteria? No. Patient's initial sepsis screen is negative. Does the patient have a suspected source of infection? No. Patient's initial sepsis screen is negative. Risk Assessment: Do you want to hurt yourself or someone else? Patient reports no desire to harm self or others. Onset of symptoms was March 02, 2021. 01:33 Method Of Arrival: Ambulatory bb 01:33 Acuity: SONJA 3 bb Historical: - Allergies: 01:36 Codeine; bb - Home Meds: 01:36 atorvastatin 20 mg Oral tab once daily [Active]; cetirizine 10 mg Oral tab 1 tab once bb daily [Active]; fluoxetine 20 mg Oral tab once daily [Active]; levothyroxine 75 mcg tab 1 tab once daily [Active]; losartan-hydrochlorothiazide 100-25 mg Oral tab once daily [Active]; omeprazole 40 mg Oral cpDR once daily [Active]; estrogen cream [Active]; - PMHx: 01:36 Anxiety; Hypertension; Hypothyroidism; reflux; bb - PSHx: 01:36 Cholecystectomy; partial hysterectomy; back sx; bb - Immunization history:: Adult Immunizations up to date. - Social history:: Smoking status: unknown. - Family history:: not pertinent. - Hospitalizations: : No recent hospitalization is reported. Screenin:30 Abuse screen: Denies threats or abuse. Nutritional screening: No deficits noted. jb4 Tuberculosis screening: No symptoms or risk factors identified. Fall Risk None identified. Assessment: 01:30 General: Appears in no apparent distress. comfortable, Behavior is calm, cooperative, jb4 appropriate for age. Pain: Complains of pain in chest Pain does not radiate. Pain currently is 5 out of 10 on a pain scale. Neuro: Level of Consciousness is awake, alert, obeys commands, Oriented to person, place, time, situation. Cardiovascular: Patient's skin is warm and dry. Respiratory: Airway is patent Respiratory effort is even, unlabored, Respiratory pattern is regular, symmetrical. GI: Abdomen is round non-distended, Reports diarrhea. : No signs and/or symptoms were reported regarding the genitourinary system. EENT: No signs and/or symptoms were reported regarding the EENT system. Derm: Skin is intact, Skin is pink, warm \T\ dry. Musculoskeletal: Circulation, motion, and sensation intact. Range of motion:. 02:30 Reassessment: Patient appears in no apparent distress at this time. Patient and/or jb4 family updated on plan of care and expected duration. Pain level reassessed. Patient is alert, oriented x 3, equal unlabored respirations, skin warm/dry/pink. 04:00 Reassessment: Patient appears in no apparent distress at this time. Patient and/or jb4 family updated on plan of care and expected duration. Pain level reassessed. Patient is alert, oriented x 3, equal unlabored respirations, skin warm/dry/pink. Vital Signs: 01:33 BP 175 / 96; Pulse 84; Resp 16 S; Temp 97.8(O); Pulse Ox 100% on R/A; Weight 84.37 kg bb (R); Height 5 ft. 5 in. (165.10 cm) (R); Pain 5/10; 02:15 BP 166 / 78; Pulse 83; Resp 16; Pulse Ox 100% on R/A; jb4 04:00 BP 141 / 72; Pulse 70; Resp 16; Pulse Ox 100% on R/A; jb4 01:33 Body Mass Index 30.95 (84.37 kg, 165.10 cm) bb [place] Coma Score: 04:35 Eye Response: spontaneous(4). Verbal Response: oriented(5). Motor Response: obeys rn commands(6). Total: 15. ED Course: 01:16 Patient arrived in ED. es 01:23 Naveed Ruelas, NANCI is Primary Nurse. jb4 01:27 Montiel, Jamel, MD is Attending Physician. rn 01:30 Patient has correct armband on for positive identification. Placed in gown. Bed in low jb4 position. Call light in reach. Side rails up X 1. ip attorney on. Pulse ox on. NIBP on. 01:35 Triage completed. bb 01:37 Arm band placed on Patient placed in an exam room, on a stretcher, on electric car operator, bb on pulse oximetry. EKG completed in triage. Results shown to MD. 02:17 Inserted saline lock: 20 gauge in left antecubital area, using aseptic technique. Blood jb5 collected. 03:07 CT Head Brain wo Cont In Process Unspecified. EDMS 03:07 CT Abd/Pelvis - IV Contrast Only In Process Unspecified. EDMS 04:51 No provider procedures requiring assistance completed. IV discontinued, intact, jb4 bleeding controlled, No redness/swelling at site. Pressure dressing applied. Administered Medications: 02:19 Drug: NS 0.9% 1000 ml Route: IV; Rate: 1000 ml; Site: left antecubital; jm8 03:45 Follow up: Response: No adverse reaction; IV Status: Completed infusion; IV Intake: jb4 1000ml 02:19 Drug: Demerol (meperidine) 12.5 mg Route: IVP; Site: left antecubital; 8 02:50 Follow up: Response: No adverse reaction; Marked relief of symptoms; Pain is decreased; jb4 RASS: Alert and Calm (0) 02:20 Drug: Zofran (Ondansetron) 4 mg Route: IVP; Site: left antecubital; 8 02:50 Follow up: Response: No adverse reaction; Marked relief of symptoms jb4 Intake: 03:45 IV: 1000ml; Total: 1000ml. jb4 Outcome: 04:38 Discharge ordered by MD. rn 04:51 Discharged to home ambulatory, with family. jb4 04:51 Condition: stable 04:51 Discharge instructions given to patient, Instructed on discharge instructions, follow up and referral plans. Demonstrated understanding of instructions, follow-up care. 04:52 Patient left the ED. jb4 Signatures: Dispatcher [employer] EDIL Trudy Mccord Brenda RN Jamel Vazquez MD MD rn Bryson, James, RN RN jb4 Geetha Llamas jb5 Robbie Zeng, NANCI RN jm8
[2021-03-03 05:05] VITALS: TEMP 97.8; O2SAT 100
[2021-03-03 05:08] VITALS: BP 141/72
--- NOTE | 2021-03-03 07:36 | EKG ---
Test Date: 2021-03-03 Test Time: 01:31:53 Driver License Technician: CARMELA MEASUREMENT RESULTS: Intervals: Rate: 74 NH: 156 QRSD: 64 QT: 382 QTc: 424 [place]: P: 47 NH: 156 QRS: 14 T: 62 INTERPRETIVE STATEMENTS: Normal sinus rhythm Nonspecific T wave abnormality Abnormal ECG Compared to ECG 11/30/2019 18:15:37 Prolonged QT interval no longer present T-wave abnormality still present Electronically Signed On 03-03-21 07:35:42 CDT by Tino Agarwal
--- NOTE | 2021-03-03 20:20 | RAD REPORT ---
EXAM DESCRIPTION: CT - Head Brain Wo Cont - 03/03/2021 6:40 am CLINICAL HISTORY: The patient is 81 years old and is Female; HEADACHE TECHNIQUE: Axial computed tomography images of the head/brain without intravenous contrast. Sagitt al and coronal reformatted images were created and reviewed. This CT exam was performed using one o r more of the following dose reduction techniques: automated exposure control, adjustment of the mA and/or kV according to patient size, and/or use of iterative reconstruction technique. COMPARISON: No relevant prior studies available. FINDINGS: Brain: Mild cerebral atrophy. No hemorrhage. No significant white matter disease. Ventricles: Unremarkable. No ventriculomegaly. Bones/joints: Unremarkable. No acute fracture. Soft tissues: Unremarkable. Sinuses: Unremarkable as visualized. Mastoid air cells: Unremarkable as visualized. No mastoid effusion. IMPRESSION: No acute intracranial abnormality. Electronically signed by: Asa Dunham MD 03/03/2021 3:39 AM CDT Due to temporary technical issues with the PACS/Fluency reporting system, reports are being signed by the in house radiologists without review as a courtesy to insure prompt reporting. The interpreting radiologist is fully responsible for the content of the report.
--- NOTE | 2021-03-03 21:40 | RAD REPORT ---
EXAM DESCRIPTION: CT - Abdomen Pelvis W Contrast - 03/03/2021 6:40 am CLINICAL HISTORY: The patient is 81 years old and is Female; ABD PAIN TECHNIQUE: Axial computed tomography images of the abdomen and pelvis with intravenous contrast. S agittal and coronal reformatted images were created and reviewed. This CT exam was performed using one or more of the following dose reduction techniques: automated exposure control, adjustment of t he mA and/or kV according to patient size, and/or use of iterative reconstruction technique. COMPARISON: CT abdomen and pelvis April 23, 2020. FINDINGS: Lung bases: Unremarkable. No mass. No consolidation. ABDOMEN: Liver: Unremarkable. No mass. Gallbladder and bile ducts: Gallbladder is surgically absent. No ductal dilation. Pancreas: Unremarkable. No mass. No ductal dilation. Spleen: Unremarkable. No splenomegaly. Adrenals: Unremarkable. No mass. Kidneys and ureters: Unremarkable. No solid mass. No hydronephrosis. Stomach and bowel: Colonic diverticulosis. No obstruction. No mucosal thickening. PELVIS: Appendix: No findings to suggest acute appendicitis. Bladder: Unremarkable. No mass. Reproductive: Unremarkable as visualized. ABDOMEN and PELVIS: Intraperitoneal space: Unremarkable. No free air. No significant fluid collection. Bones/joints: No acute fracture. No dislocation. Soft tissues: Unremarkable. Vasculature: Scattered atherosclerotic vascular calcifications including at the origins of the me senteric arteries. No abdominal aortic aneurysm. Lymph nodes: Unremarkable. No enlarged lymph nodes. IMPRESSION: No acute findings in the abdomen or pelvis. Electronically signed by: Asa Dunham MD 03/03/2021 3:47 AM CDT Due to temporary technical issues with the PACS/Fluency reporting system, reports are being signed by the in house radiologists without review as a courtesy to insure prompt reporting. The interpreting radiologist is fully responsible for the content of the report.
== END 2021-03-03 04:52 | disposition home or self-care (01) ==
LOC: ER 01:10
DX: R51.9 Headache, unspecified (principal); E03.9 Hypothyroidism, unspecified; F41.9 Anxiety disorder, unspecified; I10 Essential (primary) hypertension; Z88.5 Allergy status to narcotic agent
CPT/HCPCS: 96361; 93005; 85025; 80048; 36415; 81003; 84484; 70450; 74177; 96375; 96374; 99284; Q9967; J2175; J7030; J2405

== ENCOUNTER 2022-09-07 15:49 | Emergency (ER) | payer OTHER, BC ==
--- OUTSIDE RECORDS SUMMARY | 2022-09-07 16:06 | XMS REPORT | Continuity of Care Document ---
:1940 Author Organization [facility] t Address [address] [place] [address] Care Team Providers Name Role Phone Link Danielson MD Primary Care Physician Link Danielson MD Attending Clinician María Barrientos RN Attending Clinician Unavailable Kota Kingsley MA Attending Clinician Unavailable Julienne Jones MD Attending Clinician Sandra Yung Attending Clinician Unavailable Barrera ROSENBAUM, Amy Grant Attending Clinician [phone] Anca Ovalles MA Attending Clinician Unavailable MD AMY RUST Attending Clinician Unavailable RAVIN WILSON Attending Clinician Unavailable VIKAS CAMPBELL Attending Clinician Unavailable KENNY CASTRO Attending Clinician Unavailable GOLDY WILSON Attending Clinician Unavailable AMY RUST Admitting Clinician Unavailable MD AMY RUST Admitting Clinician Unavailable CHERRY WOODSON Admitting Clinician Unavailable Payers Payer Name Policy Type Policy Number Effective Date Expiration Date S ource Problems Condition Condition Condition Status Onset Resolution Last Treating Co mments Source Name Details Category Date Date Treatment Clinician Date Uterine Uterine Disease Active 2020-09 [facility] prolapse prolapse 10-24 00:00: Hospita 00 l Rectocele Rectocele Disease Active 2020-09 Overview: Methodi 09-[address] 00:00: g of this Hospita 00 note l might be different from the original. Added automatic ally from request for surgery [id number] Urinary Urinary Disease Active 2020-09 Overview: Meth fawad frequency frequency 1-08 Formattin s t 00:00: g of this Hospita 00 note l might be different from the original. Added automatic ally from request for surgery [id number] Posterior Posterior Disease Active 2020-09 Overview: Methodi vaginal vaginal [address] wall wall 00:00: g of this Hospita prolapse prolapse 00 note l might be different from the original. Added automatic ally from request for surgery [id number] Panic Panic Disease Active [facility] attack as attack as 3-16 [facility] reaction reaction 00:00: Medica l to stress to stress 00 Cent er Obesity Obesity Disease [facility] Anxiety Anxiety Disease Active [facility] [place] Aphasia Aphasia Disease Active [facility] 00 [place] Essential Essential Disease Active [facility] hypertensi hypertensi 3-14 [facility] on on 00:00: Medical 00 Center Hypothyroi Hypothyroi Disease Active [facility] d [facility] 3[facility] Center Spinal Spinal Disease Active [facility]i stenosis stenosis 6-28 st of lumbar of lumbar 00:00: Hosp malcolm region region 00 l SOB SOB Disease Active [facility] (shortness (shortness 6-12 st of breath) of breath) 00:00: Ho spita 00 l Vaginal Vaginal Disease Active [facility] atrophy atrophy 10-13 st 00:00: Hospita 00 l Vaginal Vaginal Disease Active [facility] vault vault 10-13 st prolapse prolapse 00:00: Hospit a 00 l Mixed Mixed Disease Active Methodi stress and stress and 10-13 st urge urge 00:00: Hospita urinary urinary 00 l incontinen incontinen ce ce Incomplete Incomplete Disease Active M ethodi bladder bladder 10-13 emptying emptying 00:00: Hospit a 00 l Recurrent Recurrent Disease Active Met hodi UTI UTI 10-13 st 00:00: Hospita 00 l Incomplete Incomplete Disease Active M ethodi defecation defecation 10-13 st 00:00: Hospita 00 l 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 00:00: Hospita syndrome syndrome 00 l Osteoarthr Osteoarthr Disease Active M ethodi itis of itis of 01-04 lumbar lumbar 00:00: Hospita spine spine 00 l Essential Essential Disease Active Met hodi hypertensi hypertensi 308 st on on 00:00: Hospita 00 l Depression Depression Disease Active M ethodi 3 st 00:00: Hospita 00 l Gastroesop Gastroesop Disease Active M ethodi hageal hageal 11-23 st reflux reflux 00:00: Hospita disease disease 00 l with with esophagiti esophagiti s s HLD HLD Disease Active Methodi (hyperlipi (hyperlipi 11-23 demia) demia) 00:00: Hospita 00 l Acquired Acquired Disease Active Metho di hypothyroi hypothyroi 3 dism dism 00:00: Hospita 00 l Low back Low back Disease Active Metho di pain pain 11-23 st 00:00: Hospita 00 l Allergies, Adverse Reactions, Alerts Allergy Allergy Status Severity Reaction(s) Onset Inactive Treating Comm ents Source Name Type Date Date Clinician Sulfamet Propensi Active Other (See Other Me thodi hoxazole ty to Comments) 10-[address] -Trimeth adverse 00:00: Hospita oprim reaction 00 l s to drug Codeine Propensi Active Hallucinatio Wild M ethodi ty to ns 3 wake, st adverse 00:00: anxious Hospita reaction 00 l s to drug NO KNOWN Allergy Active [facility] S Family History Family Member Diagnosis Comments Start Date Stop Date Source Natural brother [facility] Natural father Other [facility] Maternal grandfather Cancer [facility] Natural mother Alzheimer's Yarsani disease [facility] sister [facility] Social History Social Habit Start Date Stop Date Quantity Comments Source History SDOH [facility] Alcohol Std Drinks Medica l Center History SDOH [facility] Alcohol Binge Medical Jason [facility] History of tobacco Current smoker [facility] use Hospital Alcohol intake 2022-09-07 2022-09-07 Current drinker [facility] dist 00:00:00 00:00:00 of alcohol Hospital (finding) Cigarettes smoked 2022-07-25 2022-07-[address] current (pack per 00:00:00 00:00:00 Hospita l ) - Reported Cigarette 2022-07-25 2022-07-25 Yarsani pack-years 00:00:00 00:00:00 Hospital Alcohol Comment 2020-11-30 2020-11-30 weekly Yarsani 00:00:00 00:00:00 Hospital History SDOH 2019-12-01 2019-12-[address] [facility] Alcohol Frequency 00:00:00 00:00:00 Medical Center Tobacco use and 2019-11-30 2019-11-[address] [facility] kes exposure 00:00:00 00:00:00 [facility] Sex Assigned At [address] [facility] kes 00:00:00 00:00:00 [facility] Smoking Status Start Date Stop Date Source Ex-smoker 2022-07-25 00:00:00 2022-07-25 00:00:00 [facility] Never smoker [facility] Medications Ordered Filled Start Stop Current Ordering Indication Dosage Frequency Signature Comments Components Source Medication Medication Date Date Medication? Clinician (SIG) Name Name ALLERGY 2021-09 Yes Take by Methodi RELIEF, 2-[address] LORATADINE, 11:12: Hospit a ORAL 52 l docusate 2021-09 Yes 50mg Q24H Take 50 mg Met hodi sodium 2-[address] (COLACE) 50 11:12: daily as Ho spita MG capsule 52 needed for l constipati on. wheat 2021-09 Yes Take by Methodi dextrin 2-[address] (Benefiber 11:12: Hospita Sugar Free, 52 l dextrin,) 3 gram/4 gram powder losartan 2021-09 Yes 50mg Q.5D Take 1 Methodi (Cozaar) 50 2-12 tablet (50 st MG tablet 00:00: mg total) Hos sumanth 00 by mouth 2 l (two) times a day. losartan-hy 2021-09 Yes 2{tbl} QD Take 2 Me thodi drochloroth 1-[address] iazide 00:00: mouth Hospita (HYZAAR) 00 daily. l 50-12.5 mg per tablet FLUoxetine Yes TAKE 1 Metho di (PROzac) 20 06-[address] MG capsule 00:00: MOUTH Hospit a 00 EVERY DAY l atorvastati Yes [id number] TAKE 1 Methodi n (LIPITOR) 06-[address] 20 mg 00:00: MOUTH Hospita tablet 00 EVERY DAY l levothyroxi Yes TAKE 1 Meth fawad ne 06-[address] (SYNTHROID) 00:00: MOUTH Hospi ta 75 mcg 00 EVERY DAY l tablet IN THE MORNING losartan-hy 2021- No TAKE 1 Met hodi drochloroth 06-[address] iazide 00:00: 00:00 MOUTH Hospita (HYZAAR) 00 :00 EVERY DAY l 50-12.5 mg per tablet fluconazole 2021- No 150mg Take 1 Me thodi (Diflucan) 05-[address] 150 MG 00:00: 04:59 (150 mg Hospita tablet 00 :00 total) by l mouth once for 1 dose. fluticasone Yes SPRAY 1 Met hodi propionate 4-[address] (FLONASE) 00:00: EACH Hospita 50 00 NOSTRIL l mcg/actuati EVERY DAY on nasal spray losartan-2021- No TAKE 1 Met hodi drochloroth 11-[address] iazide 00:00: 00:00 MOUTH Hospita (HYZAAR) 00 :00 EVERY DAY l 50-12.5 mg per tablet atorvastati 2021- No [id number] TAKE 1 Methodi n (LIPITOR) 11-[address] 20 mg 00:00: 00:00 MOUTH Hospita tablet 00 :00 EVERY DAY l FLUoxetine 2021- No TAKE 1 Meth fawad (PROzac) 20 11-29 CAPSULE BY s t MG capsule 00:00: 00:00 MOUTH Hospi ta 00 :00 EVERY DAY l levothyroxi 2021- No TAKE 1 Met hodi ne 11-[address] (SYNTHROID) 00:00: 00:00 MOUTH Hosp malcolm 75 mcg 00 :00 EVERY DAY l tablet IN THE MORNING celecoxib 2021- No TAKE 1 Metho di (CeleBREX) 11-[address] 200 MG 00:00: 00:00 MOUTH 2 Hospita capsule 00 :00 TIMES A l DAY FOR 30 DAYS. celecoxib 2021- No 200mg Q.5D Take 1 Meth fawad (CeleBREX) 10-[address] 200 MG 00:00: 00:00 (200 mg Hospita capsule 00 :00 total) by l mouth 2 (two) times a day for 30 days. ciprofloxac 2021- No [id number] 250mg Q.5D Take 1 Methodi in HCl 10-[address] (Cipro) 250 00:00: 05:59 (250 mg Ho spita MG tablet 00 :00 total) by l mouth 2 (two) times a day for 3 days. sulfamethox 2021- No [id number] 1{tbl} Q.5D Take 1 Methodi azole-trime 10-[address] thoprim 00:00: 00:00 mouth 2 Hospit a (BACTRIM 00 :00 (two) l DS) 800-160 times a mg per day for 3 tablet days. 1 tablet PO BID x 3 days nitrofurant No 100mg Q.5D Take 1 Me thodi oin, 10-[address] macrocrysta 00:00: 00:00 (100 mg Ho spita l-monohydra 00 :00 total) by l te, mouth 2 (Macrobid) (two) 100 MG times a capsule day for 5 days. metroNIDAZO 2020-09- No [id number] 500mg Q.5D Take 1 Methodi LE (FlagyL) 11-[address] 500 MG 00:00: 05:59 (500 mg Hospita tablet 00 :00 total) by l mouth 2 (two) times a day for 7 days. ondansetron 2020-09- No [id number] 4mg Q8H Take 1 Methodi ODT 10-26- tablet (4 st (ZOFRAN-ODT 00:00: 05:59 mg total) Hospita ) 4 MG 00 :00 by mouth l disintegrat every 8 ing tablet (eight) hours as needed for nausea or vomiting for up to 30 days. acetaminoph 2020-09- No [id number] 1000mg Q6H Take 2 Methodi en (Tylenol 2-03 -[address] Extra 00:00: 05:59 (1,000 mg Hospit a Strength) 00 :00 total) by l 500 MG mouth tablet every 6 (six) hours as needed for mild pain (postopera tive pain) for up to 30 days. losartan-hy 2021- No TAKE 1 Met hodi drochloroth 05-[address] iazide 00:00: 00:00 MOUTH Hospita (HYZAAR) 00 :00 EVERY DAY l 50-12.5 mg per tablet levothyroxi 2021- No TAKE 1 Met hodi ne 05-[address] (SYNTHROID) 00:00: 00:00 MOUTH Hosp malcolm 75 mcg 00 :00 EVERY DAY l tablet IN THE MORNING atorvastati 2021- No [id number] TAKE 1 Methodi n (LIPITOR) 05-[address] 20 mg 00:00: 00:00 MOUTH Hospita tablet 00 :00 EVERY DAY l FLUoxetine 2021- No TAKE 1 Meth fawad (PROzac) 20 05-09 CAPSULE BY s t MG capsule 00:00: 00:00 MOUTH Hospi ta 00 :00 EVERY DAY l estradioL 2021- No [id number] .5g Q.[id number] Insert 0.5 Methodi (Estrace) 3-15 11-07 [id number] g into the [address] 0.01 % (0.1 00:00: 00:00 3W vagina 3 H ospita mg/gram) 00 :00 (three) l vaginal times a cream week. Dispense 1 tube. acetaminoph Yes 500mg Q6H Take 500 M ethodi en 2-[address] (TYLENOL) 00:00: mouth Hospita 500 MG 00 every 6 l tablet (six) hours as needed for mild pain. fluticasone 2021- No SPRAY 1 Me thodi propionate 09-28 04-[address] (FLONASE) 00:00: 00:00 EACH Hospita 50 00 :00 NOSTRIL l mcg/actuati EVERY DAY on nasal spray mupirocin 2- No QD Apply Method i (BACTROBAN) [id number] 2 % 00:00: 00:00 daily. Hospita ointment 00 :00 l losartan-hy 2019-0 Yes hypertensio 1{tbl} QD Take [address] droCHLOROth 3-16 n tablet by Ronit ramey iazide 16:40: mouth Medical (HYZAAR) 24 daily. Center 100-25 mg per tablet levothyroxi 2019-0 Yes 75ug Take [address] ne 3-16 mcg by [facility] (SYNTHROID, 16:40: mouth Medic al LEVOTHROID) 24 Every Center 75 MCG morning on tablet an empty stomach. FLUoxetine Yes anxiety 20mg QD Take [address] (PROZAC) 20 3-16 with by mouth Luke s MG tablet 16:40: depression daily. Medical 24 Center atorvastati Yes hyperlipide 20mg QD Take [address] n (LIPITOR) 3-16 jl by mouth Luke s 20 MG 16:40: daily. Medical tablet 24 Center cetirizine Yes seasonal 10mg QD Take [address] (ZYRTEC) 10 3-16 allergic by mouth Lukes MG tablet 16:40: rhinitis daily. Me dical 24 Center diclofenac 0 Yes Q.25D APPLY Metho di (VOLTAREN) 2-[address] 1 % gel 00:00: 4 (FOUR) Hospit a 00 TIMES A l DAY. APPLY 1-2 GRAMS TO AFFECTED AREA 3-4 TIMES DAILY. Immunizations Ordered Immunization Filled Immunization Date Status Commen ts Source Name Name FLUZONE HIGH-DOSE PF 2020-05-29 Completed Meth odist 00:00:00 Hospital Tdap 2020-04-20 Completed Yarsani 00:00:00 Hospital FLUZONE HIGH-DOSE PF 2019-06-25 Completed Meth odist 00:00:00 [facility] FLUZONE HIGH-DOSE PF 2018-08-27 Completed Meth odist 00:00:00 [facility] FLUZONE HIGH-DOSE PF 2015-06-10 Completed Meth odist 00:00:00 Hospital Pneumococcal 2015-06-03 Completed Yarsani Conjugate 00:00:00 [facility] Pneumococcal 2015-06-03 Completed Yarsani Conjugate 13-Valent 00:00:00 [facility] [place] Zoster 2010-06-09 Completed Y[facility]ani 00:00:00 Hospital Pneumococcal 2009-07-21 Completed Yarsani Polysaccharide 00:00:00 Hospital Tdap 2008-08-18 Completed Yarsani 00:00:00 Hospital Vital Signs Vital Name Observation Time Observation Value Comments Source Systolic blood 2022-09-07 17:09:00 138 mm[Hg] [facility] pressure Diastolic blood 2022-09-07 17:09:00 78 mm[Hg] [facility] pressure Heart rate 2022-09-07 17:09:00 80 /min [facility] Body height 2022-09-07 17:09:00 162.6 cm [facility] Body weight 2022-09-07 17:09:00 90.266 kg [facility] BMI 2022-09-07 17:09:00 34.16 kg/m2 [facility] Oxygen saturation in 2022-09-07 17:09:00 97 /min [facility] Arterial blood by Pulse oximetry Procedures Procedure Date / Time Performing Clinician Source Performed US BREAST COMPLETE RIGHT 2022-09-05 16:58:48 Link Danielson [facility] MAMMO BREAST DIAGNOSTIC 2022-09-05 16:24:54 Link Danielson [facility] TOMOSYNTHESIS RIGHT MAMMO BREAST SCREEN 2022-07-25 20:51:30 Link Danielson [facility] TOMOSYNTHESIS BILATERAL CBC WITH PLATELET AND 2022-04-19 15:51:[address] [facility] DIFFERENTIAL BASIC METABOLIC PANEL 2022-04-19 15:51:[address] [facility] URINALYSIS, AUTOMATED 2022-04-19 15:51:[address] [facility] WITH MICROSCOPY THYROID STIMULATING 2022-04-19 15:51:00 Link Danielson [facility] HORMONE LIPID PANEL 2022-04-19 15:51:00 Link Danielson [facility] HEPATIC FUNCTION PANEL 2022-04-19 15:51:00 Link Danielson [facility] URINE CULTURE 2021-12-21 17:26:00 Danielson [facility] URINALYSIS, AUTOMATED 2021-12-21 17:26:00 Jagjit [facility] WITH MICROSCOPY HEPATIC FUNCTION PANEL 2021-12-04 14:46:00 Link Danielson [facility] THYROID STIMULATING 2021-12-04 14:46:00 [facility] HORMONE HEMOGLOBIN A1C 2021-12-04 14:46:00 Danielson [facility] LIPID PANEL 2021-12-04 14:46:00 [facility] BASIC METABOLIC PANEL 2021-12-04 14:46:00 [facility] CBC WITH PLATELET AND 2021-12-04 14:46:00 [facility] DIFFERENTIAL MEASURE POST VOID 2021-10-22 18:11:00 [facility] [place] [facility] URINALYSIS DIPSTICK 2021-10-22 18:06:00 Amy Rust [facility] URINE CULTURE 2021-10-11 19:54:00 Amy Rust [facility] Plan of Care Planned Activity Planned Date Details Comments Source Future Scheduled 2022-09-07 SHINGLES VACCINES (2 Met [facility] Test 11:14:36 of 3) [code = SHINGLES VACCINES (2 of 3)] Future Scheduled 2022-05-19 INFLUENZA VACCINE (#1) [facility] Test 00:00:00 [code = INFLUENZA Medical Ce nter VACCINE (#1)] Future Scheduled 2021-09-[address] [facility] Test 00:00:00 (12+) [code = Medical Center DEPRESSION SCREENING (12+)] Future Scheduled 2021-09-18 FALLS RISK SCREENING [facility] Test 00:00:00 [code = FALLS RISK Medical C enter SCREENING] Future Scheduled 2020-11-[address] [facility] Test 00:00:00 Counseling and Medical Cente r Screening (12+) [code = Tobacco Cessation Counseling and Screening (12+)] Future Scheduled 2007-12-[address] [facility] Test 00:00:00 WELLNESS (YEAR 2 or Medical Center FIRST YEAR if no IPPE) [code = MEDICARE ANNUAL WELLNESS (YEAR 2 or FIRST YEAR if no IPPE)] Future Scheduled 2007 PNEUMOCOCCAL 65+ YRS [facility] Test 00:00:00 (1 - PCV) [code = Medical Ce nter PNEUMOCOCCAL 65+ YRS (1 - PCV)] Future Scheduled 1992-01-10 SHINGLES VACCINES ([address] [facility] Test 00:00:00 of 2) [code = SHINGLES Medic al Center VACCINES (1 of 2)] Future Scheduled 1961 DTAP/TDAP/TD VACCINES [facility] Test 00:00:00 (1 - Tdap) [code = Medical C enter DTAP/TDAP/TD VACCINES (1 - Tdap)] Future Scheduled 1940 COVID-19 VACCINE (#1) [facility] Test 00:00:00 [code = COVID-[address] VACCINE (#1)] Future Scheduled 1940 DXA SCAN [code = DXA [facility] Test 00:00:00 SCAN] [facility] Encounters Start End Encounter Admission Attending Care Care Encounter Source Date/Time Date/Time Type Type Clinicians Facility Department ID 2019-11-30 Inpatient [facility] [id number] [facility] 21:40:00 [id number] 2022-09-07 2022-09-07 Office Jagjit, 1.2.840.1 [id number] Methodi 11:15:00 11:39:11 Visit Link Sanchez 72667.1.[address] 3.430.2.7 Hospit a .3.302107 l .8 2022-09-07 2022-09-07 Outpatient JAGJIT, [facility] [id number] [address] [place] 00:00:00 00:00:00 LINK [address] 2022-09-06 2022-09-06 Telephone Jagjit, 1.2.840.1 [id number] Methodi 00:00:00 00:00:00 Link Sanchez [address]757.1.[address] 3.430.2.7 Hospit a .3.788780 l .8 2022-09-06 2022-09-06 Telephone Floyd, 1.2.840.1 [id number] Methodi 00:00:00 00:00:[address] María [address] 3.430.2.7 Hospit a .3.424732 l .8 2022-09-05 2022-09-05 [facility], 1.2.840.1 [id number] Methodi 10:16:48 23:59:00 Encounter Link Sanchez 48567.1.[address] 3.430.2.7 Hospit a .3.921918 l .8 2022-09-05 2022-09-05 [facility], 1.2.840.1 [id number] Methodi 09:28:02 10:15:00 Encounter Link Sanchez [address]779.1.[address] 3.430.2.7 Hospit a .3.020341 l .8 2022-09-05 2022-09-05 Outpatient [facility] [id number] [address] [place] [address] 00:00:00 00:00:00 LINK [address] 2022-09-05 2022-09-05 Outpatient [facility] [id number] [address] [place] [address] 00:00:00 00:00:00 LINK [address] 2022-09-05 2022-09-05 Orders Sancho, 1.2.840.1 [id number] Methodi 00:00:00 00:00:00 Only Kota 33854.1.[address] 3.430.2.7 Hospit a .3.043867 l .8 2022-09-05 2022-09-05 Travel 1.2.840.1 1.2.971.181 [id number] Methodi 00:00:00 00:00:[address] 3.430.2.7 0.2.7.3.698 Ho spita .3.942988 084.8 l .8 2022-08-29 2022-08-29 Tee Kingsley 1.2.840.1 [id number] Methodi 00:00:00 00:00:00 Only Kota 38823.1.[address] 3.430.2.7 Hospit a .3.106984 l .8 2022-07-25 2022-07-25 Office Jagjit, 1.2.840.1 [id number] Methodi 13:15:00 13:54:57 Visit Link Sanchez [address]472.1.[address] 3.430.2.7 Hospit a .3.216274 l .8 2022-07-25 2022-07-25 Transcribe Robert, 1.2.840.1 [id number] Methodi 00:00:00 00:00:00 Orders Julienne [address]246.1.[address] 3.430.2.7 Hospit a .3.905678 l .8 2022-07-25 2022-07-25 Outpatient JAGJIT, [facility] [id number] [address] [place] 00:00:00 00:00:00 LINK [address] 2022-07-25 2022-07-25 [facility] [id number] [address] [place] 00:00:00 00:00:00 LINK [address] 2022-07-21 2022-07-21 Patient Dilshad, 1.2.840.1 [id number] Methodi 00:00:00 00:00:00 Outreach Sandra [place] 35214.1.[address] 3.430.2.7 Hospit a .3.441437 l .8 2022-06-11 2022-06-11 Refill Jagjit, 1.2.840.1 [id number] Methodi 00:00:00 00:00:00 Link Sanchez [address]42.1.[address] 3.430.2.7 Hospit a .3.496571 l .8 2022-04-22 2022-04-22 Office Jagjit, 1.2.840.1 [id number] Methodi 13:00:00 13:00:00 Visit Link Sanchez 34627.1.[address] 3.430.2.7 Hospit a .3.704967 l .8 2022-04-22 2022-04-22 Travel 1.2.840.1 1.2.199.266 [id number] Methodi 00:00:00 00:00:[address] 3.430.2.7 0.2.7.3.698 Ho spita .3.249681 084.8 l .8 2022-04-22 2022-04-22 Outpatient [facility] [id number] [address] [place] 00:00:00 00:00:[address] 2022-01-05 2022-01-05 Refill Danielson, 1.2.840.1 [id number] Methodi 00:00:00 00:00:00 Link Sanchez [address].1.[address] 3.430.2.7 Hospit a .3.693736 l .8 2021-12-09 2021-12-09 Office Danielson, 1.2.840.1 [id number] Methodi 13:00:00 13:32:54 Visit Link Sanchez [address]489.1.[address] 3.430.2.7 Hospit a .3.467898 l .8 2021-12-09 2021-12-09 Travel 1.2.840.1 1.2.083.054 [id number] Methodi 00:00:00 00:00:[address] 3.430.2.7 0.2.7.3.698 Ho spita .3.718460 084.8 l .8 2021-12-09 2021-12-09 Outpatient JAGJIT, [facility] [id number] [address] [place] 00:00:00 00:00:00 LINK [address] 2021-11-28 2021-11-28 Refill Danielson, 1.2.840.1 [id number] Methodi 00:00:00 00:00:00 Link Sanchez 31656.1.[address] 3.430.2.7 Hospit a .3.986533 l .8 2021-11-20 2021-11-20 Refill Jagjit, 1.2.840.1 [id number] Methodi 00:00:00 00:00:00 Link De LeónClaudia 48231.1.[address] 3.430.2.7 Hospit a .3.864836 l .8 2021-10-22 2021-10-22 Office Barrera, 1.2.840.1 [id number] Methodi 09:45:00 12:39:34 Visit Amy 57821.1.[address] [place] 3.430.2.7 Hospit a .3.745807 l .8 2021-10-22 2021-10-22 Travel 1.2.840.1 1.2.634.777 [id number] Methodi 00:00:00 00:00:[address] 3.430.2.7 0.2.7.3.698 Ho spita .3.067972 084.8 l .8 2021-10-22 2021-10-22 [facility]patient [facility] [id number] [place] 00:00:00 00:00:00 AMY [address] 2021-10-15 2021-10-15 Telephone Josr, 1.2.840.1 [id number] Methodi 00:00:00 00:00:[address] 3.430.2.7 Hospit a .3.942889 l .8 2021-10-15 2021-10-15 Orders Barrera, 1.2.840.1 [id number] Methodi 00:00:00 00:00:00 Only Amy 50377.1.[address] [place] 3.430.2.7 Hospit a .3.105027 l .8 2021-10-15 2021-10-15 Telephone Josr, 1.2.840.1 [id number] 2099 [id number] Methodi 00:00:00 00:00:[address] 3.430.2.7 Hospit a .3.608362 l .8 2021-10-14 2021-10-14 Telephone Josr, 1.2.840.1 [id number] [id number] Methodi 00:00:00 00:00:[address] 3.430.2.7 Hospit a .3.933247 l .8 2021-10-13 2021-10-13 Orders Barrera, 1.2.840.1 [id number] Methodi 00:00:00 00:00:00 Only Amy 59607.1.[address] [place] 3.430.2.7 Hospit a .3.931190 l .8 2021-10-11 2021-10-11 Telephone Josr, 1.2.840.1 [id number] Methodi 00:00:00 00:00:[address] 3.430.2.7 Hospit a .3.596017 l .8 2021-10-11 2021-10-11 Telephone Barrera, 1.2.840.1 [id number] Methodi 00:00:00 00:00:[address] [place] 3.430.2.7 Hospit a .3.257197 l .8 2021-09-22 2021-09-22 Office Jagjit, 1.2.840.1 [id number] 7903 Methodi 11:30:00 11:34:37 Visit Link Sanchez [address]17.1.[address] 3.430.2.7 Hospit a .3.017641 l .8 2021-09-22 2021-09-22 Travel 1.2.840.1 1.2.304.070 6484 [id number] Methodi 00:00:00 00:00:[address] 3.430.2.7 0.2.7.3.698 Ho spita .3.309613 084.8 l .8 2021-09-22 2021-09-22 Outpatient DANIELSON, [facility] [id number] [address] [place] 00:00:00 00:00:[address] 2021-09-07 2021-09-07 Telephone Barrera, 1.2.840.1 [id number] Methodi 00:00:00 00:00:00 Amy 09267.1.1 622 [facility] 3.430.2.7 Hospit a .3.655312 l .8 2021-08-25 2021-08-25 Outpatient [facility] [id number] 440 [place] 00:00:00 00:00:[address] 2021-08-23 2021-08-24 Outpatient BARRERA, [facility] [id number] [place] 00:00:00 00:00:00 AMY [address] 2021-08-20 2021-08-20 Outpatient BARRERA, [facility] [id number] [place] 00:00:00 00:00:00 AMY [address] 2021-08-20 2021-08-20 Outpatient BARRERA, [facility] [id number] [place] 00:00:00 00:00:00 AMY [address] 2021-08-17 2021-08-17 Outpatient DANIELSON, [facility] [id number] 814 [place] 00:00:00 00:00:00 LINK [address] 2021-08-10 2021-08-10 Outpatient DANIELSON, [facility] [id number] 522 [place] 00:00:00 00:00:00 LINK [address] 2021-08-10 2021-08-10 Outpatient DANIELSON, [facility] [id number] 539 [place] 00:00:00 00:00:00 LINK [address] 2021-08-04 2021-08-04 Outpatient WILSON, [facility] [id number] 951 [place] 00:00:00 00:00:00 RAVIN [address] 2021-07-23 2021-07-23 Outpatient BARRERA, [facility] [id number] [place] 00:00:00 00:00:00 AMY [address] 2021-04-12 2021-04-12 Outpatient DANIELSON, [facility] [id number] 091 [place] 00:00:00 00:00:00 LINK [address] 2021-04-12 2021-04-12 Outpatient DANIELSON, [facility] [id number] 150 [place] 00:00:00 00:00:00 LINK [address] 2021-03-23 2021-03-23 Outpatient [facility] [id number] 392 [place] 00:00:00 00:00:[address] 2021-02-25 2021-02-25 Outpatient CAMPBELL, [facility] [id number] 244 [place] 00:00:00 00:00:00 VIKAS [address] 2020-11-30 2020-11-30 Outpatient MATTHEW, [facility] [id number] 318 [place] 00:00:00 00:00:00 TRISTI [address] 2020-10-15 2020-10-15 Outpatient DANIELSON, [facility] [id number] 833 [place] 00:00:00 00:00:00 LINK [address] 2020-09-28 2020-09-28 Outpatient DANIELSON, [facility] [id number] 434 [place] 00:00:00 00:00:00 LINK [address] 2020-09-23 2020-09-23 Outpatient DANIELSON, [facility] [id number] 442 [place] 00:00:00 00:00:00 LINK [address] 2020-05-29 2020-05-29 Outpatient DANIELSON, [facility] [id number] 647 [place] 00:00:00 00:00:00 LINK [address] 2020-04-29 2020-04-29 Outpatient DANIELSON, [facility] [id number] 044 [place] 00:00:00 00:00:00 LINK [address] 2020-04-20 2020-04-20 Outpatient DANIELSON, [facility] [id number] 574 [place] 00:00:00 00:00:00 LINK [address] 2020-02-24 2020-02-24 Outpatient DANIELSON, [facility] [id number] 650 [place] 00:00:00 00:00:00 LINK [address] 2020-02-24 2020-02-24 Outpatient JAGJIT, [facility] [id number] 154 [place] 00:00:00 00:00:00 LINK [place] [facility] Results Test Description Test Time Test Comments Results Result Comments Source Measure post void residual 2021-10-22 18:11:00 Test Item Value Reference Range Interpretation Comme nts Total volume, urine (test code = 2338) 190 ml [facility] urinalysis [id number] 18:06:00 Test Item Value Reference Range Interpretation Comments Color urine, POC (test Yellow code = 2773875) Clarity urine, POC (test Clear code = 3658323) Glucose urine, POC (test Negative Negative code = 6404732) Bilirubin urine, POC Negative Negative (test code = 2554085) Ketones urine, POC (test Negative Negative code = 7453568) Specific gravity urine, 1.005-1.030 POC (test code = 1915398) Blood urine, POC (test Negative Negative code = 9039075) pH urine, POC (test code See_Comment [A utomated message] = 0451897) The system [employer] h generated this result transmitted ref erence range: 5.0, 5.5 , 6.0, 6.5, 7.0, 7.5, 8.0, 8.5. The refere nce range was not u sed to interpret this result as normal/abnor mal. Protein urine, POC (test Negative Negative code = 3560872) Urobilinogen urine, POC <2.0 See_Comment [Au tomated message] (test code = 8323677) The sy stem which generated this result transmitted ref erence range: <=2.0. T he reference range was not used to int erpret this result as normal/abnormal . Nitrite urine, POC (test Negative Negative code = 8183993) Leukocyte esterase Negative Negative urine, POC (test code = 3065250) Lab Interpretation (test Normal code = 59391-2) [facility] [Presence] in Respiratory specimen by TOBI with probe [id number] 18:36:01 Test Item Value Reference Range Interpretation Comments SARS-CoV-2 (COVID-19) RNA Not detected Not-Detected [Presence] in Respiratory specimen by TOBI with probe detection (test code = 99475-7) Whether patient is employed in a healthcare setting (test code = 91043-4) Whether the patient has symptoms related to condition of interest (test code = 13533-5) Patient was hospitalized because of this condition (test code = 11820-3) Whether the patient was admitted to intensive care unit (ICU) for condition of interest (test code = 71986-5) Whether patient resides in a congregate care setting (test code = 67615-3) DEBORAH BARGERVITAMIN B12 AND [id number] 07:21:00 Test Item Value Reference Range Interpretation Comments VITAMIN B12 (BEAKER) (test code = 267 pg/mL 213-816 774) FOLATE (BEAKER) (test code = 362) 7.9 ng/mL >=7.0 Hotel Receptionist NUSRAT KAHN FVITAMIN D, [id number] 05:55:00 Test Item Value Reference Range Interpretation Comments VITAMIN D 25-OH (BEAKER) (test 15.7 ng/mL 6.6-49.9 code = 2764) Effective 06/28/2017: Reference Range ChangeNew: 6.6-49.9 ng/mL Previous: 13.0- 47.8 ng/mLRecommendedVitamin D Target Range: 30.0-40.0 ng/mLOperator NUSRAT Duran BASIC METABOLIC [id number] 05:46:00 Test Item Value Reference Range Interpretation [...] S NOT APPLICABLE FOR DIALYSIS PATIEN TS. Hotel Receptionist ID - LAURA MCBC W/PLT COUNT & AUTO [id number] 05:22:00 Test Item Value Reference Range Interpretation [...] code = 2801) MR, MRA, BRAIN, WITHOUT [id number] 12:32:00Reason for exam:->Ischemic Stroke EvaluationFINAL REPORT MR, [...] Local cerebral atrophy. No diffusion restriction.Midline structures: Normallypositioned.Cerebellum and brainstem: Normal.Ventricles: Normal volume.Extra-axial spaces: Unremarkable. Calvarium and skull base: Normal signal.Paranasal sinuses and mastoid air cells: Visible chambersare clear.Orbital contents: No acute abnormality. Additional findings: None. MRA BRAIN:Internal carotid arteries: Patent. Middle cerebral arteries: Patent to distal branches.Anterior cerebral arteries:Intact.Basilar system: Patent vertebrobasilar system.Posterior cerebral arteries:Patent beyond the qu adrigeminal segments.Additional findings: None. MRA NECK:Common carotid arteries: Unremarkable. Bifurcations: No flow-limiting stenosis. Cervical internal carotid arteries: No flow limiting stenosis.Vertebral arteries: Codominant. No origin or extracranial stenosis. IMPRESSION: Involutional changes without acute ischemia or parenchymal hemorrhage. No flow limiting stenosis in the major branch vesselsof the cervical or cranial circulation. Signed: JR Chacko Robert MDReport Verified Date/Time: 12/01/2019 12:32:02 Reading Location: [address] Neuro Reading Room MR, MRA, NECK, [...] signal.Paranasal sinuses and mastoid air cells: Visible chambersare clear.Orbital contents: No acute abnormality. Additional findings: None. MRA BRAIN:Internal carotid arteries: Patent. Middle cerebral arteries: Patent to distal branches.Anterior cerebral arteries:Intact.Basilar system: Patent vertebrobasilar system.Posterior cerebral arteries:Patent beyond the quadrigeminal segments.Additional findings: None. MRA NECK:Common carotid arteries: Unremarkable. Bifurcations: No flow- limiting stenosis. Cervical internal carotid arteries: No flow limiting stenosis.Vertebral arteries: Codominant. No origin or extracranial stenosis. IMPRESSION: Involutional changes without acute ischemia or parenchymal hemorrhage. No flow limiting stenosis in the major branch vesselsof the cervical or cranial circulation. Signed: JR Chacko Robert MDReport Verified Date/Time: 12/01/2019 12:32:02 Reading Location: [address] Neuro Reading Room MR, BRAIN, WITHOUT [id number] 12:32:00Reason for exam:->Ischemic Stroke EvaluationFINAL REPORT MR, [...] signal.Paranasal sinuses and mastoid air cells: Visible chambersare clear.Orbital contents: No acute abnormality. Additional findings: None. MRA BRAIN:Internal carotid arteries: Patent. Middle cerebral arteries: Patent to distal branches.Anterior cerebral arteries:Intact.Basilar system: Patent vertebrobasilar system.Posterior cerebral arteries:Patent beyond the quadrigeminal segments.Additional findings: None. MRA NECK:Common carotid arteries: Unremarkable. Bifurcations: No flow- limiting stenosis. Cervical internal carotid arteries: No flow limiting stenosis.Vertebral arteries: Codominant. No origin or extracranial stenosis. IMPRESSION: Involutional changes without acute ischemia or parenchymal hemorrhage. No flow limiting stenosis in the major branch vesselsof the cervical or cranial circulation. Signed: JR Chacko Robert MDReport Verified Date/Time: 12/01/2019 12:32:02 Reading Location: [address] Neuro Reading Room GLOBIN [id number] 09:39:00 Test Item Value Reference Range Interpretation Comments HEMOGLOBIN A1C (BEAKER) (test code = 5.5 % 4.3-6.1 368) TSH/FREE T4 IF [id number] 06:57:00 Test Item Value Reference Range Interpretation Comments THYROID STIMULATING HORMONE 1.70 uIU/mL 0.35-4.94 (BEAKER) (test code = 772) Hotel Receptionist ID - LAURA MVITAMIN B12 AND [id number] 06:57:00 Test Item Value Reference Range Interpretation Comments VITAMIN B12 (BEAKER) (test code = 228 pg/mL 213-816 774) FOLATE (BEAKER) (test code = 362) 10.9 ng/mL >=7.0 Hotel Receptionist ID - LAURA MCBC W/PLT COUNT & AUTO [id number] 06:53:00 Test Item Value Reference Range Interpretation [...] 0-1 PERCENT (BEAKER) (test code = 2801) BASIC METABOLIC [id number] 06:36:00 Test Item Value Reference Range Interpretation [...] S NOT APPLICABLE FOR DIALYSIS PATIEN TS. Hotel Receptionist NUSRAT SANCHEZ MC-REACTIVE [id number] 06:36:00 Test Item Value Reference Range Interpretation Comments C-REACTIVE PROTEIN (BEAKER) (test 0.46 mg/dL 0.00-0.50 code = 676) Hotel Receptionist NUSRAT SANCHEZ MLIPID [id number] 06:36:00 Test Item Value Reference Range Interpretation Comments TRIGLYCERIDES (BEAKER) (test code = 74 mg/dL 540) CHOLESTEROL (BEAKER) (test code = 151 mg/dL 631) HDL CHOLESTEROL (BEAKER) (test code 49 mg/dL = 976) LDL CHOLESTEROL CALCULATED (BEAKER) 87 mg/dL (test code = 633) Triglyceride Reference Range: Low Risk <150 Borderline 150-199 High Risk 200- 499 Very High Risk >=500Cholesterol Reference Range: Low Risk <200 Borderline 200-239 High Risk >240HDL Cholesterol Reference Range: Low Risk >=60 High Risk <40LDL Cholesterol Reference Range: Optimal <100 Near Optimal 100-129 Borderline 130-159 High 160-189 Very High >=190 Hotel Receptionist NUSRAT Duran
[2022-09-07] MEDS ORDERED: LORazepam 2 MG/ML VIAL ONE (17:07)
[2022-09-07] MEDS ORDERED: NA CHLORIDE 0.9% 1,000 ML ONE (17:07)
[2022-09-07 17:32] LABS: Urine Blood 2+ (Negative); Urine Glucose Negative (Negative); Urine Protein Trace (Negative)
[2022-09-07 17:34] LABS: Absolute Lymphocytes (CBC) 0.5 K/uL (0.7-4.9); Hematocrit 36.2 % (36.0-45.0); Lymphocytes % 4.5 % (15.3-44.8); MCV 96.5 fL (80-100); MPV 7.3 fL (7.6-11.3); RBC Red Blood Cell Count 3.75 M/uL (3.86-4.86)
[2022-09-07 17:47] LABS: Urine Bacteria None Seen /HPF (<20); Urine Crystals Unidentified Few /HPF (None Seen); Urine WBC Clump Occasional /HPF (None Seen)
[2022-09-07 17:52] LABS: Albumin 3.6 g/dL (3.4-5.0); Bilirubin Total 0.7 mg/dL (0.2-1.0); Potassium 3.6 mmol/L (3.5-5.1); Protein, Total 6.9 g/dL (6.4-8.2)
--- NOTE | 2022-09-07 18:48 | RAD REPORT ---
EXAM DESCRIPTION: CT - Abdomen Pelvis W Contrast - 09/07/2022 6:31 pm CLINICAL HISTORY: Abdominal pain COMPARISON: 2020 TECHNIQUE: Computed axial tomography of the abdomen pelvis was obtained. 100 cc Isovue-300 was admin istered intravenously. Oral contrast was not requested which limits evaluation of bowel and appendix All CT scans are performed using dose optimization technique as appropriate and may include automated exposure control or mA/KV adjustment according to patient size. FINDINGS: Borderline fatty liver. Cholecystectomy Spleen, pancreas, adrenal and left kidney kidneys appear unremarkable. 2 centimeter right renal cyst Diverticula stem from the colon without evidence of diverticulitis. Hysterectomy. No adnexal mass Fluid in nondilated large and small bowel Small umbilical hernia IMPRESSION: Fluid in nondilated large and small is nonspecific but may indicate an enteritis
--- NOTE | 2022-09-07 19:07 | ER ---
Nurse's Notes [facility] Name: Yolande Hurtado Age: 82 yrs Sex: Female : 1940 Arrival Date: 09/07/2022 Time: 16:05 Bed 19 Private MD: Diagnosis: Other abdominal pain Presentation: 09/07 16:09 Chief complaint: EMS states: Abdominal pain that started yesterday, saw PCP who said ph that she was constipated so she took medication to have BM but pain increased and she began to have fever so she called 911. oral temp 100.4, 1 gram of Tylenol given, 20 G IV to RAC, 350 NS administered. Onset of symptoms was September 07, 2022. 16:09 Method Of Arrival: EMS: [facility] 16:09 Acuity: SONJA 3 ph 16:34 Coronavirus screen: Vaccine status: Patient reports being unvaccinated. Ebola Screen: ph No symptoms or risks identified at this time. Initial Sepsis Screen: Does the patient meet any 2 criteria? HR > 90 bpm. Does the patient have a suspected source of infection? Yes: Acute abdominal pain. Risk Assessment: Do you want to hurt yourself or someone else? Patient reports no desire to harm self or others. Triage Assessment: 16:36 General: Appears in no apparent distress. uncomfortable, well groomed, Behavior is ph calm, cooperative, appropriate for age, Reports chills for fever for 0-12 hours. Pain: Complains of pain in right lower quadrant. Neuro: Level of Consciousness is awake, alert, obeys commands, Oriented to person, place, time, situation. Cardiovascular: Capillary refill < 3 seconds in bilateral fingers Patient's skin is warm and dry. Respiratory: Airway is patent Respiratory effort is even, unlabored. GI: Reports lower abdominal pain, nausea. Derm: Skin is pink, warm \T\ dry. Musculoskeletal: Circulation, motion, and sensation intact. Range of motion: intact in all extremities. Historical: - Allergies: 16:16 Codeine; ph - PMHx: 16:16 Anxiety; Hypertension; Hypothyroidism; reflux; ph - Immunization history:: Adult Immunizations unknown. - Social history:: Smoking status: Patient denies any tobacco usage or history of. - Family history:: not pertinent. Screenin:[address] [facility] ED Fall Risk Assessment (Adult) History of falling in the last 3 months, ph including since admission No falls in past 3 months (0 pts) Confusion or Disorientation No (0 pts) Intoxicated or Sedated No (0 pts) Impaired Gait No (0 pts) Mobility Assist Device Used No (0 pt) Altered Elimination No (0 pt) Score/Fall Risk Level 0 - 2 = Low Risk. Abuse screen: Denies threats or abuse. Denies injuries from another. Nutritional screening: No deficits noted. Tuberculosis screening: No symptoms or risk factors identified. Assessment: 17:33 General: Appears in no apparent distress. uncomfortable, Behavior is cooperative, ph appropriate for age, anxious, Reports chills for 0-12 hours. Pain: Complains of pain in right lower quadrant. Neuro: Level of Consciousness is awake, alert, obeys commands, Oriented to person, place, time, situation. Cardiovascular: Capillary refill < 3 seconds in bilateral fingers Patient's skin is warm and dry. Respiratory: Airway is patent Respiratory effort is even, unlabored, Respiratory pattern is regular, symmetrical. GI: Reports lower abdominal pain, nausea. : No signs and/or symptoms were reported regarding the genitourinary system. Derm: Skin is fragile, is thin, Skin is pink, warm \T\ dry. 18:30 Reassessment: Patient appears in no apparent distress at this time. Patient and/or ph family updated on plan of care and expected duration. Pain level reassessed. Patient is alert, oriented x 3, equal unlabored respirations, skin warm/dry/pink. 19:00 General: Appears in no apparent distress. comfortable, well groomed, well developed, pf1 Behavior is calm, cooperative, appropriate for age, quiet. 19:00 Pain: Complains of pain in right lower quadrant Pain currently is 5 out of 10 on a pain pf1 scale. Neuro: No deficits noted. Level of Consciousness is awake, alert, obeys commands, Oriented to person, place, time, situation. Cardiovascular: No deficits noted. Capillary refill < 3 seconds Patient's skin is warm and dry. Respiratory: No deficits noted. Airway is patent Respiratory effort is even, unlabored, Respiratory pattern is regular, symmetrical. GI: Reports lower abdominal pain, nausea. : No deficits noted. No signs and/or symptoms were reported regarding the genitourinary system. Derm: Skin is intact, Skin is pink, warm \T\ dry. 09/08 08:43 Reassessment: Lab called with positive preliminary culture results. Dr. Serina ivory recommends that patient come back if she is not feeling well and if she is feeling okay to call in cephalexin 500 mg. 1 tab TID x 10 days # 30, no refills to pharmacy of choice. Spoke to patient who states that she is feeling a little better than she did, but is having urinary incontinence. Pt verbalizes understanding instructions of new medication that has been called in to [facility] upon her request and importance of coming back to the ER for any ongoing or worsening of symptoms. Vital Signs: 09/07 16:34 BP 150 / 86; Pulse 127; Resp 20; Temp 98.7(O); Pulse Ox 96% on R/A; Weight 90.26 kg; ph Height 5 ft. 4 in. (162.56 cm); 17:35 BP 138 / 80; Pulse 115; Resp 18; Pulse Ox 97% on R/A; ph 18:30 BP 142 / 72; Pulse 112; Resp 18; Pulse Ox 96% on R/A; ph 19:15 BP 139 / 69; Pulse 98; Resp 18; Temp 99; Pulse Ox 99% ; Pain 5/10; pf1 16:34 Body Mass Index 34.16 (90.26 kg, 162.56 cm) ph ED Course: 16:05 Patient arrived in ED. iw 16:09 Angi Holland, RN is Primary Nurse. ph 16:16 Triage completed. ph 16:16 Arm band placed on Patient placed in an exam room, on a stretcher, on pulse oximetry. ph 16:31 Kyler Luther MD is Attending Physician. rt 16:35 Patient has correct armband on for positive identification. Placed in gown. Bed in low ph position. Call light in reach. Side rails up X 1. pvc monitor on. Pulse ox on. NIBP on. Door closed. Noise minimized. Lights dimmed. Warm blanket given. 17:33 Initial lab(s) drawn, by me, sent to lab. Urine collected:. Inserted saline lock: 20 ph gauge in right antecubital area, using aseptic technique. Blood collected. 18:33 CT Abd/Pelvis - IV Contrast Only In Process Unspecified. EDMS 19:35 No provider procedures requiring assistance completed. IV discontinued, intact, pf1 bleeding controlled, No redness/swelling at site. Pressure dressing applied. Administered Medications: 17:34 Drug: NS 0.9% 1000 ml Route: IV; Rate: 1 bolus; Site: right antecubital; ph 19:00 Follow up: IV Status: Completed infusion; IV Intake: 1000ml pf1 19:20 Follow up: Response: No adverse reaction; IV Status: Completed infusion; IV Intake: ph 1000ml 17:34 Drug: Ativan (LORazepam) 1 mg Route: IVP; Site: right antecubital; ph 19:18 Follow up: Response: No adverse reaction ph 19:31 Drug: Losartan 50 mg Route: PO; pf1 19:31 Follow up: Response: No adverse reaction pf1 Medication: 19:35 VIS not applicable for this client. pf1 Intake: 19:00 IV: 1000ml; Total: 1000ml. pf1 19:20 IV: 1000ml; Total: 2000ml. ph Outcome: 19:07 Discharge ordered by . rt 19:47 Discharged to home via wheelchair, with family. pf1 19:47 Condition: improved 19:47 Discharge instructions given to patient, Instructed on discharge instructions, follow up and referral plans. medication usage, Demonstrated understanding of instructions, follow-up care, medications, Prescriptions given X 1. 19:48 Patient left the ED. pf1 Signatures: Dispatcher [employer] EDIrina Sanderson, NANCI CHRISTINE Yadira Mancuso RN RN ss Hall, Patricia, RN RN ph [place], Ryan, MD MD rt finley, Pamala, RN RN pf1
--- NOTE | 2022-09-07 19:07 | EDPHYS ---
Physician Documentation [facility] Name: Yolande Hurtado Age: 82 yrs Sex: Female : 1940 Arrival Date: 09/07/2022 Time: 16:05 Bed 19 Private MD: ED Physician Kyler Luther HPI: 09/07 18:17 This 82 yrs old Female presents to ER via EMS with complaints of abdominal pain. rt 18:17 The patient presents with abdominal pain. Onset: The symptoms/episode began/occurred rt yesterday. The symptoms do not radiate. Associated signs and symptoms: Pertinent positives: constipation, fever. The symptoms are described as achy. Modifying factors: The symptoms are alleviated by nothing. Severity of pain: At its worst the pain was moderate. She presents to the ED with abdominal pain starting yesterday. It was mild in severity at that time, subsequently resolved without any treatment. She stated that she felt that she needed to have a bowel movement. Patient states that the symptoms have returned today were associated with a low-grade fever. The patient states that the symptoms have improved but did not resolve. Denies other acute complaints at this time, symptoms are moderate in severity, no other aggravating or alleviating factors.. Historical: - Allergies: 16:16 Codeine; ph - PMHx: 16:16 Anxiety; Hypertension; Hypothyroidism; reflux; ph - Immunization history:: Adult Immunizations unknown. - Social history:: Smoking status: Patient denies any tobacco usage or history of. - Family history:: not pertinent. ROS: 18:17 Eyes: Negative for injury, pain, redness, and discharge, ENT: Negative for injury, rt pain, and discharge, Neck: Negative for injury, pain, and swelling, Cardiovascular: Negative for chest pain, palpitations, and edema, Respiratory: Negative for shortness of breath, cough, wheezing, and pleuritic chest pain, MS/Extremity: Negative for injury and deformity, Skin: Negative for injury, rash, and discoloration, Neuro: Negative for headache, weakness, numbness, tingling, and seizure, Psych: Negative for depression, anxiety, suicide ideation, homicidal ideation, and hallucinations. 18:17 Constitutional: Positive for fever, Negative for body aches. 18:17 Abdomen/GI: Positive for abdominal pain, constipation. Exam: 18:17 Constitutional: This is a well developed, well nourished patient who is awake, alert, rt and in no acute distress. Head/Face: Normocephalic, atraumatic. Eyes: Pupils equal round and reactive to light, extra-ocular motions intact. Lids and lashes normal. Conjunctiva and sclera are non-icteric and not injected. Cornea within normal limits. Periorbital areas with no swelling, redness, or edema. ENT: Nares patent. No nasal discharge, no septal abnormalities noted. Tympanic membranes are normal and external auditory canals are clear. Oropharynx with no redness, swelling, or masses, exudates, or evidence of obstruction, uvula midline. Mucous membranes moist. Neck: Trachea midline, no thyromegaly or masses palpated, and no cervical lymphadenopathy. Supple, full range of motion without nuchal rigidity, or vertebral point tenderness. No Meningismus. Chest/axilla: Normal chest wall appearance and motion. Nontender with no deformity. No lesions are appreciated. Cardiovascular: Regular rate and rhythm with a normal S1 and S2. No gallops, murmurs, or rubs. Normal PMI, no JVD. No pulse deficits. Respiratory: Lungs have equal breath sounds bilaterally, clear to auscultation and percussion. No rales, rhonchi or wheezes noted. No increased work of breathing, no retractions or nasal flaring. Back: No spinal tenderness. No costovertebral tenderness. Full range of motion. Skin: Warm, dry with normal turgor. Normal color with no rashes, no lesions, and no evidence of cellulitis. MS/ Extremity: Pulses equal, no cyanosis. Neurovascular intact. Full, normal range of motion. Neuro: Awake and alert, GCS 15, oriented to person, place, time, and situation. Cranial nerves II-XII grossly intact. Motor strength 5/5 in all extremities. Sensory grossly intact. Cerebellar exam normal. Normal gait. Psych: Awake, alert, with orientation to person, place and time. Behavior, mood, and affect are within normal limits. 18:17 Abdomen/GI: Mild abdominal tenderness diffusely without rebound, guarding, distention.. 18:17 ECG was reviewed by the Attending Physician. rt Vital Signs: 16:34 BP 150 / 86; Pulse 127; Resp 20; Temp 98.7(O); Pulse Ox 96% on R/A; Weight 90.26 kg; ph Height 5 ft. 4 in. (162.56 cm); 17:35 BP 138 / 80; Pulse 115; Resp 18; Pulse Ox 97% on R/A; ph 18:30 BP 142 / 72; Pulse 112; Resp 18; Pulse Ox 96% on R/A; ph 19:15 BP 139 / 69; Pulse 98; Resp 18; Temp 99; Pulse Ox 99% ; Pain 5/10; pf1 16:34 Body Mass Index 34.16 (90.26 kg, 162.56 cm) ph MDM: 16:31 Patient medically screened. rt 09/08 12:41 Differential diagnosis: Status, cholecystitis, bowel obstruction. Data reviewed: vital rt signs, nurses notes, lab test result(s), EKG, radiologic studies. 09/07 16:48 Order name: CBC with Diff; Complete Time: 18:44 rt 09/07 16:48 Order name: CMP; Complete Time: 18:44 rt 09/07 16:48 Order name: Lipase; Complete Time: 18:44 rt 09/07 16:48 Order name: Urine Microscopic Only; Complete Time: 18:44 rt 09/07 16:49 Order name: Blood Culture Adult (2) rt 09/07 16:49 Order name: Lactate w/ 2H reflex if indic.; Complete Time: 18:44 rt 09/07 16:48 Order name: CT Abd/Pelvis - IV Contrast Only; Complete Time: 18:51 rt 09/07 16:48 Order name: IV Saline Lock; Complete Time: 17:34 rt 09/07 16:49 Order name: EKG; Complete Time: 16:49 rt 09/07 17:32 Order name: Urine Dipstick-Ancillary; Complete Time: 18:44 EDMS 09/07 17:55 Order name: Urine Culture EDMS 09/07 16:48 Order name: Labs collected and sent; Complete Time: 17:34 rt 09/07 16:48 Order name: Urine Dipstick-Ancillary (obtain specimen); Complete Time: 17:34 rt 09/07 16:49 Order name: EKG - Nurse/Tech; Complete Time: 17:50 rt 09/07 16:49 Order name: IV Saline Lock - Large Bore; Complete Time: 17:34 rt 09/07 16:49 Order name: Labs collected and sent; Complete Time: 17:34 rt 09/07 16:49 Order name: O2 Per Protocol; Complete Time: 17:34 rt 09/07 16:49 Order name: O2 Sat Monitoring; Complete Time: 17:34 rt 09/07 16:49 Order name: Vital Signs; Complete Time: 17:34 rt EC/21 18:17 Rate is 107 beats/min. Rhythm is regular, Sinus tachycardia with No ectopy. QRS Seffner is rt Normal. VA interval is normal. QRS interval is normal. Administered Medications: 17:34 Drug: NS 0.9% 1000 ml Route: IV; Rate: 1 bolus; Site: right antecubital; ph 19:00 Follow up: IV Status: Completed infusion; IV Intake: 1000ml pf1 19:20 Follow up: Response: No adverse reaction; IV Status: Completed infusion; IV Intake: ph 1000ml 17:34 Drug: Ativan (LORazepam) 1 mg Route: IVP; Site: right antecubital; ph 19:18 Follow up: Response: No adverse reaction ph 19:31 Drug: Losartan 50 mg Route: PO; pf1 19:31 Follow up: Response: No adverse reaction pf1 Disposition Summary: 09/07/22 19:07 Discharge Ordered Location: Home rt Problem: new rt Symptoms: are resolved rt Condition: Stable rt Diagnosis - Other abdominal pain rt Followup: rt - With: Private Physician - When: 2 - 3 days - Reason: Discharge Instructions: - Discharge Summary Sheet rt - Abdominal Pain, Adult rt Forms: - Medication Reconciliation Form rt - Thank You Letter rt - Antibiotic Education rt - Prescription Opioid Use rt Prescriptions: - dicyclomine 10 mg Oral Capsule - take 1 capsule by ORAL route 3 times per day; 18 capsule; Refills: 0, Product rt Selection Permitted Signatures: Dispatcher [employer] Angi Wyatt RN RN ph Kyler Luther MD MD rt Unique vega RN RN pf1
[2022-09-07] MEDS ORDERED: LOSARTAN POTASSIUM 50 MG TABLET ONE (19:26)
[2022-09-07 20:26] VITALS: BP 139/69; TEMP 99; O2SAT 99
== END 2022-09-07 19:48 | disposition home or self-care (01) ==
LOC: ER 15:49
DX: R10.9 Unspecified abdominal pain (principal); R50.9 Fever, unspecified; I10 Essential (primary) hypertension; Z88.5 Allergy status to narcotic agent
CPT/HCPCS: 87040 ×2; 87088; 85025; 87086; 36415; 83605; 83690; 80053; 74177; Q9967; J7030; 81003; 81015; 87205; 93005

== ENCOUNTER 2025-02-08 13:00 | Emergency (ER) | payer OTHER, BC ==
--- NOTE | 2025-02-08 14:48 | EDPHYS ---
Physician Documentation [facility] Name: Yolande Hurtado Age: 85 yrs Sex: Female : 1940 Arrival Date: 02/08/2025 Time: 13:00 Bed 6 Private MD: MICHAEL Physician Blake Burton HPI: 02/08 14:44 This 85 yrs old Female presents to ER via Ambulatory with complaints of Knee jolly Injury. 14:44 The patient presents with decreased range of motion, pain, that is acute. The jolly complaints affect the lateral aspect of left knee and left knee. Context: resulted from the patient falling, while walking, the patient can partially bear weight, must have assistance, from family. Onset: The symptoms/episode began/occurred 2 day(s) ago. Modifying factors: The symptoms are alleviated by. Associated signs and symptoms: The patient has no apparent associated signs or symptoms. Severity of symptoms: At their worst the symptoms were moderate, in the emergency department the symptoms are unchanged. The patient has not experienced similar symptoms in the past. Historical: - Allergies: 13:21 Codeine; me1 13:39 sulfamethoxazole-trimethoprim; dd2 13:39 Celecoxib; dd2 13:39 Lidocaine; dd2 - PMHx: 13:21 Anxiety; Hypothyroidism; Hypertension; reflux; me1 - PSHx: 13:21 Operative procedure on knee; Cholecystectomy; back; Total abdominal hysterectomy; me1 - Immunization history:: Adult Immunizations up to date. - Infectious Disease History:: Denies. - Social history:: Smoking status: Patient/guardian denies using tobacco, but has a distant history of tobacco abuse. ROS: 14:45 Constitutional: Negative for fever, chills, and weight loss, Eyes: Negative for injury, jolly pain, redness, and discharge, ENT: Negative for injury, pain, and discharge, Neck: Negative for injury, pain, and swelling, Cardiovascular: Negative for chest pain, palpitations, and edema, Respiratory: Negative for shortness of breath, cough, wheezing, and pleuritic chest pain, Abdomen/GI: Negative for abdominal pain, nausea, vomiting, diarrhea, and constipation, Back: Negative for injury and pain, Skin: Negative for injury, rash, and discoloration, Neuro: Negative for headache, weakness, numbness, tingling, and seizure, Psych: Negative for depression, anxiety, suicide ideation, homicidal ideation, and hallucinations, Allergy/Immunology: Negative for hives, rash, and allergies, Endocrine: Negative for neck swelling, polydipsia, polyuria, polyphagia, and marked weight changes, Hematologic/Lymphatic: Negative for swollen nodes, abnormal bleeding, and unusual bruising, 14:45 MS/extremity: Positive for decreased range of motion, pain, swelling, of the left knee, Exam: 14:45 Constitutional: This is a well developed, well nourished patient who is awake, alert, jolly and in no acute distress. Head/Face: Normocephalic, atraumatic. Eyes: Pupils equal round and reactive to light, extra-ocular motions intact. Lids and lashes normal. Conjunctiva and sclera are non-icteric and not injected. Cornea within normal limits. Periorbital areas with no swelling, redness, or edema. ENT: Nares patent. No nasal discharge, no septal abnormalities noted. Tympanic membranes are normal and external auditory canals are clear. Oropharynx with no redness, swelling, or masses, exudates, or evidence of obstruction, uvula midline. Mucous membranes moist. Neck: Trachea midline, no thyromegaly or masses palpated, and no cervical lymphadenopathy. Supple, full range of motion without nuchal rigidity, or vertebral point tenderness. No Meningismus. Chest/axilla: Normal chest wall appearance and motion. Nontender with no deformity. No lesions are appreciated. Cardiovascular: Regular rate and rhythm with a normal S1 and S2. No gallops, murmurs, or rubs. Normal PMI, no JVD. No pulse deficits. Respiratory: Lungs have equal breath sounds bilaterally, clear to auscultation and percussion. No rales, rhonchi or wheezes noted. No increased work of breathing, no retractions or nasal flaring. Abdomen/GI: Soft, non-tender, with normal bowel sounds. No distension or tympany. No guarding or rebound. No evidence of tenderness throughout. Back: No spinal tenderness. No costovertebral tenderness. Full range of motion. Female : Normal external genitalia. Neuro: Awake and alert, GCS 15, oriented to person, place, time, and situation. Cranial nerves II-XII grossly intact. Motor strength 5/5 in all extremities. Sensory grossly intact. Cerebellar exam normal. Normal gait. Psych: Awake, alert, with orientation to person, place and time. Behavior, mood, and affect are within normal limits. 14:45 Musculoskeletal/extremity: ROM: limited active range of motion due to pain, limited passive range of motion due to pain, Circulation is intact in all extremities. Compartment Syndrome exam of affected extremity: is normal. Weight bearing: is unable to bear weight, 14:45 Skin: abscess, not appreciated, cellulitis, is not appreciated, induration, is not appreciated, injury, contusion(s), that are deep, Vital Signs: 13:19 BP 165 / 102; Pulse 112; Resp 18; Temp 98; Pulse Ox 99% ; Weight 90.72 kg; Height 5 ft. me1 4 in. ; Pain 4/10; 13:43 BP 164 / 93; Pulse 82; Resp 16; Pulse Ox 96% on R/A; dd2 15:42 BP 157 / 87; Pulse 85; Resp 16; Pulse Ox 97% ; bp 13:19 Body Mass Index 34.33 (90.72 kg, 162.56 cm) me1 13:19 Pain Scale: Adult me1 Komal Coma Score: 13:43 Eye Response: spontaneous(4). Motor Response: obeys commands(6). Verbal Response: dd2 oriented(5). Total: 15. MDM: 13:18 Medical Screening Exam initiated [facility] 13:27 Medical Screening Exam initiated [facility] 14:46 Differential diagnosis: closed fracture, contusion, tendonitis. Data reviewed: vital jolly signs, nurses notes, radiologic studies, plain films. Consideration of Admission/Observation Escalation of care including admission/observation considered. I considered the following discharge prescriptions or medication management in the emergency department Medications were administered in the Emergency Department. See MAR. Independent interpretation of the following test(s) in the Emergency Department X-Ray: My interpretation is lrft knee. 02/08 13:27 Order name: Knee Left 3 View XRAY [facility] 02/08 13:47 Order name: Femur Left XRAY [facility] Administered Medications: 15:00 Drug: Ibuprofen PO 600 mg PO once Route: PO; bp 15:43 Follow up: Response: No adverse reaction bp Disposition Summary: 02/08/25 14:48 Discharge Ordered Notes: Location: Home [facility] Problem: new jolly Symptoms: have improved jolly Condition: Stable jolly Diagnosis - Fall on same level, unspecified jolly - Contusion of left knee jolly Followup: jolly - With: Private Physician - When: 2 - 3 days - Reason: Recheck today's complaints, Continuance of care, Re-evaluation by your physician Followup: jolly - With: Daniel Jones MD - When: 2 - 3 days - Reason: Recheck today's complaints, Re-evaluation by your physician Discharge Instructions: - Discharge Summary Sheet [facility] - Fall Prevention in the Home, Adult jolly - How to Use a Knee Immobilizer jolly - Acute Knee Pain, Adult [facility] - Fall Prevention in the Home, Adult, [id number] jolly - How to Use a Knee Immobilizer, [id number] jolly - Acute Knee Pain, Adult, [id number] [facility] Forms: - Medication Reconciliation Form [facility] - Antibiotic Education [facility] - Prescription Opioid Use [facility] - Patient Portal Instructions [facility] - Leadership Thank You Letter [facility] Prescriptions: - diclofenac sodium 25 mg Oral tablet, delayed release (enteric coated) - take 1 tablet ORAL route 3 times per day; 21 tablet; Refills: 0, Product [facility] Selection Permitted Signatures: Dispatcher [employer] EDBlake Taylor MD MD cha Peltier, Brian RN RN bp Susy Zaidi RN RN me1 VICKIE GARCIA RN RN dd2 Corrections: (The following items were deleted from the chart) 13:41 13:28 Ice pack ordered. [facility] dd2 15:31 14:44 Knee Immobilizer ordered. [facility] bp 15:31 14:44 Crutches ordered. [facility] bp
--- NOTE | 2025-02-08 14:48 | ER ---
Nurse's Notes [facility] Name: Yolande Hurtado Age: 85 yrs Sex: Female : 1940 Arrival Date: 02/08/2025 Time: 13:00 Bed 6 Private MD: Diagnosis: Fall on same level, unspecified;Contusion of left knee Presentation: 02/08 13:19 Chief complaint: Patient states: slipped and fell in a grassy area and landed me1 on both hands and knees. Continues to have pain to left knee which was replaced a year ago. Pain at this time 4/10 but at worst was 10/10. Coronavirus screen: Vaccine status: Patient reports being unvaccinated. Ebola Screen: No symptoms or risks identified at this time. Initial Sepsis Screen: Does the patient meet any 2 criteria? No. Patient's initial sepsis screen is negative. Does the patient have a suspected source of infection? No. Patient's initial sepsis screen is negative. Risk Assessment: Do you want to hurt yourself or someone else? Patient reports no desire to harm self or others. Onset of symptoms was February 06, 2025. 13:19 Method Of Arrival: Ambulatory [facility] [place] 13:19 Acuity: SONJA 4 me1 Triage Assessment: 13:31 General: Appears in no apparent distress. comfortable, Behavior is calm, cooperative, bp appropriate for age. Pain: Complains of pain in left knee. EENT: No deficits noted. Neuro: No deficits noted. Cardiovascular: No deficits noted. Respiratory: No deficits noted. GI: No signs and/or symptoms were reported involving the gastrointestinal system. : No signs and/or symptoms were reported regarding the genitourinary system. Derm: No deficits noted. Musculoskeletal: Reports pain in left knee. Injury Description: Bruise sustained to left knee. Historical: - Allergies: 13:21 Codeine; me1 13:39 sulfamethoxazole-trimethoprim; dd2 13:39 Celecoxib; dd2 13:39 Lidocaine; dd2 - PMHx: 13:21 Anxiety; Hypothyroidism; Hypertension; reflux; me1 - PSHx: 13:21 Operative procedure on knee; Cholecystectomy; back; Total abdominal hysterectomy; me1 - Immunization history:: Adult Immunizations up to date. - Infectious Disease History:: Denies. - Social history:: Smoking status: Patient/guardian denies using tobacco, but has a distant history of tobacco abuse. Screenin:[facility] ED Fall Risk Assessment (Adult) History of falling in the last 3 months, bp including since admission No falls in past 3 months (0 pts) Confusion or Disorientation No (0 pts) Intoxicated or Sedated No (0 pts) Impaired Gait No (0 pts) Mobility Assist Device Used No (0 pt) Altered Elimination No (0 pt) Score/Fall Risk Level 0 - 2 = Low Risk Oriented to surroundings. Abuse screen: Denies threats or abuse. Denies injuries from another. Nutritional screening: No deficits noted. Tuberculosis screening: No symptoms or risk factors identified. Assessment: 13:30 General: Appears in no apparent distress. uncomfortable, Behavior is appropriate for bp age. Vital Signs: 13:19 BP 165 / 102; Pulse 112; Resp 18; Temp 98; Pulse Ox 99% ; Weight 90.72 kg; Height 5 ft. me1 4 in. ; Pain 4/10; 13:43 BP 164 / 93; Pulse 82; Resp 16; Pulse Ox 96% on R/A; dd2 15:42 BP 157 / 87; Pulse 85; Resp 16; Pulse Ox 97% ; bp 13:19 Body Mass Index 34.33 (90.72 kg, 162.56 cm) me1 13:19 Pain Scale: Adult me1 Komal Coma Score: 13:43 Eye Response: spontaneous(4). Motor Response: obeys commands(6). Verbal Response: dd2 oriented(5). Total: 15. ED Course: 13:11 Patient arrived in ED. ts1 13:18 Blake Burton MD is Attending Physician. jolly 13:21 Triage completed. me1 13:21 Arm band placed on Patient placed in an exam room. me1 13:30 Masoud Leiva, NANCI is Primary Nurse. bp 13:30 Patient has correct armband on for positive identification. bp 13:43 Client placed on continuous cardiac and pulse oximetry monitoring. NIBP monitoring dd2 applied. Door closed. Noise minimized. Pillow given. Verbal reassurance given. 13:43 No provider procedures requiring assistance completed. Patient maintains SpO2 dd2 saturation greater than 95% on room air. 14:46 Knee Left 3 View XRAY In Process Unspecified. EDMS 14:46 Femur Left XRAY In Process Unspecified. EDMS 14:47 Daniel Jones MD is Referral Physician. jolly 15:43 Patient did not have IV access during this emergency room visit. bp 15:43 Jaime wrap to left knee. bp Administered Medications: 15:00 Drug: Ibuprofen PO 600 mg PO once Route: PO; bp 15:43 Follow up: Response: No adverse reaction bp Medication: 13:30 VIS not applicable for this client. bp Outcome: 14:48 Discharge ordered by . jolly 15:43 Discharged to home ambulatory, bp 15:43 Condition: stable 15:43 Discharge instructions given to patient, Instructed on discharge instructions, follow up and referral plans. medication usage, Demonstrated understanding of instructions, follow-up care, medications, Prescriptions given X 1, 15:43 Patient left the ED. bp Signatures: Dispatcher [employer] EDVT Blake Burton MD MD cha Peltier, Brian, RN RN bp Kim John, PAS PAS ts1 Susy Zaidi RN RN me1 VICKIE GARCIA RN RN dd2
--- NOTE | 2025-02-08 14:49 | RAD REPORT ---
EXAMINATION: Femur Left VIEWS: As above CLINICAL INDICATION: Female, 85 years old. PAIN COMPARISON: No prior exam. IMPRESSION: No left femur fracture. Intact left knee arthroplasty. Mild left acetabular degenerative changes. No acute soft tissue abnormality.
--- NOTE | 2025-02-08 14:49 | RAD REPORT ---
EXAM: Knee Left 3 View INDICATION: PAIN COMPARISON: None FINDINGS: No acute fracture. Intact left knee orthoplasty. No significant knee effusion. No significant focal degenerative changes. Other: N/A IMPRESSION: No acute osseous abnormality involving the imaged knee.
[2025-02-08] MEDS ORDERED: IBUPROFEN 400 MG TAB ONE (15:03)
[2025-02-08 16:09] VITALS: TEMP 98
[2025-02-08 16:12] VITALS: BP 157/87; O2SAT 97
== END 2025-02-08 15:43 | disposition home or self-care (01) ==
LOC: ER 13:00
DX: S80.02XA Contusion of left knee, initial encounter (principal); W18.30XA Fall on same level, unspecified, initial encounter
CPT/HCPCS: 99284